=== PATIENT | male | born 1935 | race Caucasian/White ===

== ENCOUNTER 2016-03-08 09:10 | Outpatient (CLI) | payer MEDICARE, OTHER ==
[2016-03-08 09:44] LABS: BASOPHILS % (AUTO) 0.4 % (0.0-2.0); DIFF TOTAL % 100 %; EOSINOPHILS # (AUTO) 0.5 /CMM (0.0-0.7); HEMATOCRIT 40 % (39-51); HEMOGLOBIN 13.3 g/dL (13.5-17.5); LYMPHOCYTES # (AUTO) 1.5 /CMM (0.8-4.8); LYMPHOCYTES % (AUTO) 23.8 % (20.0-44.0); MEAN CORPUSCULAR HEMOGLOBIN 31 PG (26.0-33.0); MEAN CORPUSCULAR HGB CONC 34 g/dl (31.0-36.0); MEAN CORPUSCULAR VOLUME 91 fL (80-96); MONOCYTES # (AUTO) 0.5 /CMM (0.1-1.30); MONOCYTES % (AUTO) 7.7 % (2.0-12.0); NEUTROPHILS # (AUTO) 3.8 /CMM (1.8-8.9); NEUTROPHILS % (AUTO) 60.1 % (43.0-81.0); PLATELET COUNT (AUTO) 212 /CMM (150-450); RED BLOOD CELL COUNT(AUTO) 4.38 MIL/uL (4.5-6.0); WHITE BLOOD COUNT (AUTO) 6.4 K/uL (4.3-11.0)
[2016-03-08 10:12] LABS: ALBUMIN 3.6 g/dL (3.4-5.0); BILIRUBIN,TOTAL 0.4 mg/dL (0.2-1.0); CALCIUM, SERUM 9.1 mg/dL (8.5-10.1); CREATININE 1.9 mg/dL (0.6-1.3); POTASSIUM 4.2 mmol/L (3.5-5.1); TOTAL PROTEIN, SERUM 7.4 g/dL (6.4-8.2)
[2016-03-08 10:19] LABS: THYROID STIMULATING HORMONE 6.014 uIU/mL (0.358-3.74)
== END 2016-03-08 23:59 | disposition home or self-care (01) ==
LOC: LAB 09:10
PROVIDERS: ATTEND Internal Medicine
DX: F03.90 Unspecified dementia, unspecified severity, without behavioral disturbance, psychotic disturbance, mood disturbance, and anxiety (principal)
CPT/HCPCS: 36415; 80053-TC; 84436-TC; 84443-TC; 85025-TC

== ENCOUNTER 2016-04-03 14:39 | Outpatient (CLI) | payer MEDICARE, OTHER ==
[~2016-04-03] VITALS: Ht 157.5 cm; Wt 63.0 kg
[2016-04-03 14:51] VITALS: BP_SYST 142; BP_SYST 149; BP_DIAS 67; BP_DIAS 80
[2016-04-03 15:16] LABS: BASOPHILS % (AUTO) 0.4 % (0.0-2.0); DIFF TOTAL % 100 %; EOSINOPHILS # (AUTO) 0.4 /CMM (0.0-0.7); EOSINOPHILS % (AUTO) 4.9 % (0.0-6.0); HEMATOCRIT 41 % (39-51); HEMOGLOBIN 13.6 g/dL (13.5-17.5); LYMPHOCYTES # (AUTO) 1.7 /CMM (0.8-4.8); MEAN CORPUSCULAR HEMOGLOBIN 31 PG (26.0-33.0); MEAN CORPUSCULAR HGB CONC 34 g/dl (31.0-36.0); MEAN CORPUSCULAR VOLUME 91 fL (80-96); MONOCYTES # (AUTO) 0.7 /CMM (0.1-1.30); MONOCYTES % (AUTO) 9.2 % (2.0-12.0); NEUTROPHILS # (AUTO) 5.1 /CMM (1.8-8.9); NEUTROPHILS % (AUTO) 64.5 % (43.0-81.0); PLATELET COUNT (AUTO) 253 /CMM (150-450); RED BLOOD CELL COUNT(AUTO) 4.47 MIL/uL (4.5-6.0); WHITE BLOOD COUNT (AUTO) 7.9 K/uL (4.3-11.0)
[2016-04-03 15:25] LABS: CALCIUM, SERUM 9.6 mg/dL (8.5-10.1); CREATININE 2.1 mg/dL (0.6-1.3); POTASSIUM 4.4 mmol/L (3.5-5.1)
[2016-04-03 15:40] LABS: KETONES,URINE NEGATIVE (NEGATIVE); LEUKOCYTE ESTERASE ,URINE NEGATIVE (NEGATIVE)
[2016-04-03 15:47] LABS: ADD UA MICROSCOPIC YES
[2016-04-03 15:53] LABS: ADD URINE CULTURE NO; RBC,URINE 0-2 /HPF (0-2); WBC,URINE 0-2 /HPF (0-3)
[2016-04-03 17:05] LABS: CREATININE, URINE 129.7 MG/DL (30.0-125.0); URINE TOTAL PROTEIN 44.9 mg/dL (0-11.9)
[2016-04-03 17:22] LABS: THYROID STIMULATING HORMONE 5.605 uIU/mL (0.358-3.74)
== END 2016-04-03 23:59 | disposition home or self-care (01) ==
LOC: CSC 14:39
PROVIDERS: ATTEND Internal Medicine
DX: G30.9 Alzheimer's disease, unspecified (principal); F02.80 Dementia in other diseases classified elsewhere, unspecified severity, without behavioral disturbance, psychotic disturbance, mood disturbance, and anxiety; F32.5 Major depressive disorder, single episode, in full remission; E11.22 Type 2 diabetes mellitus with diabetic chronic kidney disease; I13.0 Hypertensive heart and chronic kidney disease with heart failure and stage 1 through stage 4 chronic kidney disease, or unspecified chronic kidney disease; N18.4 Chronic kidney disease, stage 4 (severe); I50.30 Unspecified diastolic (congestive) heart failure; Z79.84 Long term (current) use of oral hypoglycemic drugs; E03.9 Hypothyroidism, unspecified; G47.00 Insomnia, unspecified; K40.90 Unilateral inguinal hernia, without obstruction or gangrene, not specified as recurrent; E55.9 Vitamin D deficiency, unspecified; E78.5 Hyperlipidemia, unspecified; M85.80 Other specified disorders of bone density and structure, unspecified site; Z86.73 Personal history of transient ischemic attack (TIA), and cerebral infarction without residual deficits; R33.9 Retention of urine, unspecified; Z79.82 Long term (current) use of aspirin
CPT/HCPCS: 36415; 80048 ×2; 80061 ×2; 81001 ×2; 82565; 82570 ×2; 82728; 83036 ×2; 83540 ×2; 83970 ×2; 84155 ×2; 84443 ×2; 85025; G0463; 81000-TC

== ENCOUNTER 2016-04-05 15:14 | Inpatient (IN) | payer MEDICARE, OTHER ==
[~2016-04-05] VITALS: Ht 162.6 cm; Wt 67.6 kg
[2016-04-05 16:21] LABS: BASOPHILS # (AUTO) 0.2 /CMM (0.0-0.2); BASOPHILS % (AUTO) 2.6 % (0.0-2.0); DIFF TOTAL % 100 %; EOSINOPHILS # (AUTO) 0.3 /CMM (0.0-0.7); EOSINOPHILS % (AUTO) 4.5 % (0.0-6.0); HEMATOCRIT 40 % (39-51); LYMPHOCYTES # (AUTO) 1.2 /CMM (0.8-4.8); LYMPHOCYTES % (AUTO) 17.4 % (20.0-44.0); MEAN CORPUSCULAR HEMOGLOBIN 30 PG (26.0-33.0); MEAN CORPUSCULAR HGB CONC 33 g/dl (31.0-36.0); MEAN CORPUSCULAR VOLUME 91 fL (80-96); MONOCYTES # (AUTO) 0.6 /CMM (0.1-1.30); MONOCYTES % (AUTO) 9.2 % (2.0-12.0); NEUTROPHILS # (AUTO) 4.4 /CMM (1.8-8.9); NEUTROPHILS % (AUTO) 66.3 % (43.0-81.0); PLATELET COUNT (AUTO) 216 /CMM (150-450); RED BLOOD CELL COUNT(AUTO) 4.37 MIL/uL (4.5-6.0); WHITE BLOOD COUNT (AUTO) 6.7 K/uL (4.3-11.0)
[2016-04-05 16:34] LABS: INR 1.06 (0.87-1.13); PROTHROMBIN TIME 11.1 SECS (9.5-12.7)
[2016-04-05 16:36] LABS: CALCIUM, SERUM 8.9 mg/dL (8.5-10.1); CREATININE 2.1 mg/dL (0.6-1.3); POTASSIUM 4.4 mmol/L (3.5-5.1)
[2016-04-05] MEDS ORDERED: GLIP5TAB13 PO (17:21)
[2016-04-05] MEDS ORDERED: ALBU18HF2 INH (17:21)
[2016-04-05] MEDS ORDERED: MEMA28CA PO (17:21)
[2016-04-05] MEDS ORDERED: LEVO125T8 PO (17:21)
[2016-04-05] MEDS ORDERED: TAMS-12 PO (17:21)
[2016-04-05] MEDS ORDERED: DONE10TA44 PO (17:21)
[2016-04-05] MEDS ORDERED: METO25TA20 PO (17:21)
[2016-04-05] MEDS ORDERED: ASPI-991 PO (17:21)
[2016-04-05] MEDS ORDERED: MIRT15TA7 PO (17:21)
[2016-04-05 18:40] VITALS: BP 148/78
[2016-04-05] MEDS ORDERED: ALBUTEROL SULFATE 8 GM HFA.AER.AD IH PRN ×2 (19:00→19:13)
[2016-04-05] MEDS ORDERED: Z GUARD REMEDY 2 OZ OINT TP PRN (19:00)
[2016-04-05] MEDS ORDERED: MAGNESIUM HYDROXIDE 30 ML UDC PO PRN (19:00)
[2016-04-05] MEDS ORDERED: ONDANSETRON HCL/PF 4 MG/2 ML VIAL IVP PRN (19:00)
[2016-04-05] MEDS ORDERED: ENOXAPARIN SODIUM 40 MG/0.4 ML DISP.SYRIN SQ SCH (19:00)
[2016-04-05] MEDS ORDERED: MORPHINE SULFATE INJ 2 MG/ML DISP.SYRIN IV PRN (19:00)
[2016-04-05] MEDS ORDERED: HYDROCODONE/APAP 5/325MG 1 EACH TABLET PO PRN (19:00)
[2016-04-05] MEDS ORDERED: ZOLPIDEM TARTRATE 5 MG TABLET PO PRN (19:00)
[2016-04-05] MEDS ORDERED: MAG HYDROX/AL HYDROX/SIMETH 30 ML UDC PO PRN (19:00)
[2016-04-05] MEDS ORDERED: ENOXAPARIN SODIUM 30 MG/0.3 ML DISP.SYRIN SQ SCH (19:30)
[2016-04-05 20:00] VITALS: BP 135/73
[2016-04-05] MEDS: DONEPEZIL 5 MG TABLET PO SCH (22:03)
[2016-04-05] MEDS: MIRTAZAPINE 15 MG TABLET PO SCH (22:03)
[2016-04-06] VITALS (16 sets, daily range): BP systolic 96–139; BP diastolic 59–82
[2016-04-06] MEDS ORDERED: IV SET PRIMARY PUMP SET 1 EA INFUS.SET MC ONE ×2 (02:15→12:13)
[2016-04-06] MEDS: IV NS 0.9% 1,000 ML IV PRN ×2 (04:23→12:18)
[2016-04-06] MEDS ORDERED: LIDOCAINE 1% INJ 50 ML MDV IJ ONE (05:08)
[2016-04-06] MEDS ORDERED: BUPIVACAINE MPF 0.5% W/EPI INJ 30 ML VIAL ONE (05:09)
[2016-04-06] MEDS ORDERED: FENTANYL PF 100MCG/2ML AMPUL ONE (05:11)
[2016-04-06] MEDS ORDERED: ROCURONIUM BROMIDE 50 MG/5 ML ONE (05:11)
[2016-04-06] MEDS ORDERED: HYDROMORPHONE INJ 2 MG/ML DISP.SYRIN ONE (05:11)
[2016-04-06] MEDS ORDERED: SUCCINYLCHOLINE CHLORIDE 20 MG/ML VIAL ONE (05:11)
[2016-04-06] MEDS ORDERED: ALBUTEROL 17GM INHALER ONE (05:29)
[2016-04-06] MEDS ORDERED: ANESTHESIA TRAY IN PYXIS 1 EA TRAY MC ONE ×2 (06:37→08:18)
[2016-04-06] MEDS ORDERED: ALBUTEROL FS 2.5 MG/3 ML VIAL.NEB ONE ×3 (07:27→08:17)
[2016-04-06] MEDS ORDERED: HYDROMORPHONE 1 MG/1 ML DISP.SYRIN IV PRN (08:30)
[2016-04-06] MEDS ORDERED: ONDANSETRON HCL/PF 4 MG/2 ML VIAL IVP PRN (08:30)
[2016-04-06] MEDS ORDERED: HYDROCORTISONE SOD SUCCINATE 100 MG/2 ML VIAL IV ONE (08:30)
[2016-04-06] MEDS ORDERED: ASPIRIN EC 81 MG TABLET.DR PO SCH (09:00)
[2016-04-06 09:24] LABS: ABG BASE EXCESS -6.4 mmol/L; ABG HCO3 24.7 mmol/L; ABG PCO2 77.4 mmHg (35.0-45.0); ABG PH 7.121 (7.350-7.450); ABG PO2 115.6 mmHg (75.0-100.0); ABG TOTAL HEMOGLOBIN 14.2 G/dL (13.5-18.0); AaDO2 139.2 mmHg
[2016-04-06] MEDS: LEVOTHYROXINE SODIUM 125 MCG TABLET PO SCH (10:42)
[2016-04-06] MEDS: TAMSULOSIN 0.4 MG CAP.SR.24H PO SCH (10:43)
[2016-04-06] MEDS: PANTOPRAZOLE 40 MG TABLET.DR PO SCH (10:43)
[2016-04-06] MEDS: MEMANTINE HCL 5 MG TABLET PO SCH ×2 (10:43→16:42)
[2016-04-06] MEDS: METOPROLOL TARTRATE 25 MG TABLET PO SCH ×2 (10:43→16:42)
[2016-04-06 11:15] LABS: DIFF TOTAL % 100 %; EOSINOPHILS % (AUTO) 0.1 % (0.0-6.0); HEMATOCRIT 38 % (39-51); HEMOGLOBIN 12.7 g/dL (13.5-17.5); LYMPHOCYTES # (AUTO) 0.4 /CMM (0.8-4.8); LYMPHOCYTES % (AUTO) 5.1 % (20.0-44.0); MEAN CORPUSCULAR HEMOGLOBIN 31 PG (26.0-33.0); MEAN CORPUSCULAR HGB CONC 34 g/dl (31.0-36.0); MEAN CORPUSCULAR VOLUME 91 fL (80-96); MONOCYTES # (AUTO) 0.4 /CMM (0.1-1.30); MONOCYTES % (AUTO) 4.8 % (2.0-12.0); PLATELET COUNT (AUTO) 193 /CMM (150-450); RED BLOOD CELL COUNT(AUTO) 4.15 MIL/uL (4.5-6.0); WHITE BLOOD COUNT (AUTO) 8.9 K/uL (4.3-11.0)
[2016-04-06 11:21] LABS: ABG BASE EXCESS -2.9 mmol/L; ABG HCO3 22.9 mmol/L; ABG PCO2 43.8 mmHg (35.0-45.0); ABG PH 7.337 (7.350-7.450); ABG PO2 91.4 mmHg (75.0-100.0); ABG TOTAL HEMOGLOBIN 13.3 G/dL (13.5-18.0); ALLEN TEST Pass; AaDO2 85.5 mmHg
[2016-04-06] MEDS: ALBUTEROL FS 2.5 MG/0.5 ML VIAL.NEB NEB SCH ×3 (11:30→19:49)
[2016-04-06 11:31] LABS: CALCIUM, SERUM 8.5 mg/dL (8.5-10.1); PHOSPHORUS 2.9 mg/dL (2.5-4.9); POTASSIUM 4.3 mmol/L (3.5-5.1)
[2016-04-06 13:07] LABS: KETONES,URINE 1+ (NEGATIVE); LEUKOCYTE ESTERASE ,URINE NEGATIVE (NEGATIVE)
[2016-04-06 13:09] LABS: ADD UA MICROSCOPIC YES
[2016-04-06 13:26] LABS: ADD URINE CULTURE NO; WBC,URINE NONE SEEN /HPF (0-3)
[2016-04-06] MEDS: IPRATROPIUM NEB FS 0.5 MG/2.5 ML AMPUL.NEB NEB SCH ×3 (14:52→23:13)
[2016-04-06] MEDS ORDERED: DEXTROSE 50%-WATER 50 ML DISP.SYRIN IV PRN (15:30)
[2016-04-06] MEDS: BLOOD SUGAR DIAGNOSTIC 1 EACH STRIP IN SCH ×2 (16:41→23:11)
[2016-04-06] MEDS: glipiZIDE 5 MG TABLET PO SCH (16:41)
[2016-04-06] MEDS: INSULIN REGULAR, HUMAN 100 UNIT/ML 3 ML VIAL SQ PRN ×2 (16:50→23:11)
[2016-04-06] MEDS: DONEPEZIL 5 MG TABLET PO SCH (23:07)
[2016-04-06] MEDS: MIRTAZAPINE 15 MG TABLET PO SCH (23:13)
[2016-04-07] VITALS (20 sets, daily range): BP systolic 106–135; BP diastolic 39–101
[2016-04-07] MEDS: IV NS 0.9% 1,000 ML IV PRN ×2 (00:29→12:53)
[2016-04-07] MEDS: IPRATROPIUM NEB FS 0.5 MG/2.5 ML AMPUL.NEB NEB SCH ×5 (03:16→19:43)
[2016-04-07 05:25] LABS: BASOPHILS % (AUTO) 0.3 % (0.0-2.0); DIFF TOTAL % 100 %; HEMATOCRIT 35 % (39-51); HEMOGLOBIN 11.8 g/dL (13.5-17.5); LYMPHOCYTES # (AUTO) 0.8 /CMM (0.8-4.8); LYMPHOCYTES % (AUTO) 9.2 % (20.0-44.0); MEAN CORPUSCULAR HEMOGLOBIN 31 PG (26.0-33.0); MEAN CORPUSCULAR HGB CONC 34 g/dl (31.0-36.0); MEAN CORPUSCULAR VOLUME 92 fL (80-96); MONOCYTES % (AUTO) 11.4 % (2.0-12.0); NEUTROPHILS # (AUTO) 6.9 /CMM (1.8-8.9); NEUTROPHILS % (AUTO) 79.1 % (43.0-81.0); PLATELET COUNT (AUTO) 191 /CMM (150-450); RED BLOOD CELL COUNT(AUTO) 3.78 MIL/uL (4.5-6.0); WHITE BLOOD COUNT (AUTO) 8.8 K/uL (4.3-11.0)
[2016-04-07 05:31] LABS: CALCIUM, SERUM 8.7 mg/dL (8.5-10.1); CREATININE 1.9 mg/dL (0.6-1.3); PHOSPHORUS 2.4 mg/dL (2.5-4.9); POTASSIUM 3.9 mmol/L (3.5-5.1)
[2016-04-07] MEDS: glipiZIDE 5 MG TABLET PO SCH ×2 (07:52→16:33)
[2016-04-07] MEDS: PANTOPRAZOLE 40 MG TABLET.DR PO SCH (07:52)
[2016-04-07] MEDS: BLOOD SUGAR DIAGNOSTIC 1 EACH STRIP IN SCH ×4 (07:52→21:30)
[2016-04-07] MEDS: LEVOTHYROXINE SODIUM 125 MCG TABLET PO SCH (07:52)
[2016-04-07] MEDS: ALBUTEROL FS 2.5 MG/0.5 ML VIAL.NEB NEB SCH ×4 (07:55→19:43)
[2016-04-07] MEDS: TAMSULOSIN 0.4 MG CAP.SR.24H PO SCH (08:00)
[2016-04-07] MEDS: MEMANTINE HCL 5 MG TABLET PO SCH ×2 (08:01→16:33)
[2016-04-07] MEDS: METOPROLOL TARTRATE 25 MG TABLET PO SCH ×2 (08:01→16:35)
[2016-04-07 08:55] LABS: ABG HCO3 22.7 mmol/L; ABG PCO2 38.6 mmHg (35.0-45.0); ABG PH 7.387 (7.350-7.450); ABG PO2 72.3 mmHg (75.0-100.0); ABG TOTAL HEMOGLOBIN 11.8 G/dL (13.5-18.0); ALLEN TEST Pass; AaDO2 81.8 mmHg; O2Hb 92.1 % (94.0-97.0)
[2016-04-07] MEDS ORDERED: K PHOS NEUTRAL 250 MG TABLET PO ONE (13:30)
[2016-04-07] MEDS: INSULIN REGULAR, HUMAN 100 UNIT/ML 3 ML VIAL SQ PRN ×2 (16:42→21:40)
[2016-04-07] MEDS: ACETAMINOPHEN 325 MG TABLET PO PRN (20:27)
[2016-04-07] MEDS: DONEPEZIL 5 MG TABLET PO SCH (21:30)
[2016-04-07] MEDS: MIRTAZAPINE 15 MG TABLET PO SCH (21:30)
[2016-04-08] VITALS (7 sets, daily range): BP systolic 115–158; BP diastolic 40–91
[2016-04-08] MEDS: IV NS 0.9% 1,000 ML IV PRN ×2 (01:35→21:21)
[2016-04-08] MEDS: BLOOD SUGAR DIAGNOSTIC 1 EACH STRIP IN SCH ×4 (07:30→21:21)
[2016-04-08] MEDS: ALBUTEROL FS 2.5 MG/0.5 ML VIAL.NEB NEB SCH ×4 (07:32→19:10)
[2016-04-08] MEDS: IPRATROPIUM NEB FS 0.5 MG/2.5 ML AMPUL.NEB NEB SCH ×4 (07:32→19:10)
[2016-04-08 08:12] LABS: CALCIUM, SERUM 7.8 mg/dL (8.5-10.1); CREATININE 1.7 mg/dL (0.6-1.3); PHOSPHORUS 2.3 mg/dL (2.5-4.9); POTASSIUM 4.2 mmol/L (3.5-5.1)
[2016-04-08] MEDS: LEVOTHYROXINE SODIUM 125 MCG TABLET PO SCH (09:04)
[2016-04-08] MEDS: MEMANTINE HCL 5 MG TABLET PO SCH ×2 (09:04→17:27)
[2016-04-08] MEDS: TAMSULOSIN 0.4 MG CAP.SR.24H PO SCH (09:06)
[2016-04-08] MEDS: glipiZIDE 5 MG TABLET PO SCH ×2 (09:06→17:26)
[2016-04-08] MEDS: PANTOPRAZOLE 40 MG TABLET.DR PO SCH (09:06)
[2016-04-08] MEDS: METOPROLOL TARTRATE 25 MG TABLET PO SCH ×2 (09:06→17:28)
[2016-04-08] MEDS: ENOXAPARIN SODIUM 30 MG/0.3 ML DISP.SYRIN SQ SCH (11:25)
[2016-04-08] MEDS: INSULIN REGULAR, HUMAN 100 UNIT/ML 3 ML VIAL SQ PRN ×2 (11:31→21:24)
[2016-04-08] MEDS ORDERED: K PHOS NEUTRAL 250 MG TABLET PO ONE ×2 (13:00→14:30)
[2016-04-08] MEDS ORDERED: BLOOD IV SET 1 EA INFUS.SET MC ONE (16:28)
[2016-04-08] MEDS: DONEPEZIL 5 MG TABLET PO SCH (21:21)
[2016-04-08] MEDS: MIRTAZAPINE 15 MG TABLET PO SCH (21:21)
[2016-04-09] VITALS (7 sets, daily range): BP systolic 88–127; BP diastolic 44–71
[2016-04-09] MEDS: ACETAMINOPHEN 325 MG TABLET PO PRN (04:57)
[2016-04-09] MEDS: glipiZIDE 5 MG TABLET PO SCH ×2 (07:30→17:14)
[2016-04-09] MEDS: IPRATROPIUM NEB FS 0.5 MG/2.5 ML AMPUL.NEB NEB SCH ×4 (07:45→19:58)
[2016-04-09] MEDS: ALBUTEROL FS 2.5 MG/0.5 ML VIAL.NEB NEB SCH ×4 (07:45→19:58)
[2016-04-09 08:03] LABS: BASOPHILS % (AUTO) 0.4 % (0.0-2.0); DIFF TOTAL % 100 %; EOSINOPHILS % (AUTO) 0.3 % (0.0-6.0); HEMATOCRIT 31 % (39-51); HEMOGLOBIN 10.3 g/dL (13.5-17.5); LYMPHOCYTES # (AUTO) 1.1 /CMM (0.8-4.8); LYMPHOCYTES % (AUTO) 11.5 % (20.0-44.0); MEAN CORPUSCULAR HEMOGLOBIN 31 PG (26.0-33.0); MEAN CORPUSCULAR HGB CONC 33 g/dl (31.0-36.0); MEAN CORPUSCULAR VOLUME 92 fL (80-96); MONOCYTES # (AUTO) 0.9 /CMM (0.1-1.30); MONOCYTES % (AUTO) 9.6 % (2.0-12.0); NEUTROPHILS # (AUTO) 7.5 /CMM (1.8-8.9); NEUTROPHILS % (AUTO) 78.2 % (43.0-81.0); PLATELET COUNT (AUTO) 168 /CMM (150-450); RED BLOOD CELL COUNT(AUTO) 3.34 MIL/uL (4.5-6.0); WHITE BLOOD COUNT (AUTO) 9.6 K/uL (4.3-11.0)
[2016-04-09 08:30] LABS: CALCIUM, SERUM 8.1 mg/dL (8.5-10.1); CREATININE 1.8 mg/dL (0.6-1.3); PHOSPHORUS 2.5 mg/dL (2.5-4.9); POTASSIUM 3.9 mmol/L (3.5-5.1)
[2016-04-09] MEDS: BLOOD SUGAR DIAGNOSTIC 1 EACH STRIP IN SCH ×4 (08:31→21:59)
[2016-04-09] MEDS: METOPROLOL TARTRATE 25 MG TABLET PO SCH ×2 (08:32→17:17)
[2016-04-09] MEDS: TAMSULOSIN 0.4 MG CAP.SR.24H PO SCH (08:32)
[2016-04-09] MEDS: MEMANTINE HCL 5 MG TABLET PO SCH ×2 (08:32→17:14)
[2016-04-09] MEDS: LEVOTHYROXINE SODIUM 125 MCG TABLET PO SCH (08:32)
[2016-04-09] MEDS: PANTOPRAZOLE 40 MG TABLET.DR PO SCH (08:32)
[2016-04-09] MEDS: ENOXAPARIN SODIUM 30 MG/0.3 ML DISP.SYRIN SQ SCH (08:47)
[2016-04-09] MEDS: IV NS 0.9% 1,000 ML IV PRN (10:29)
[2016-04-09] MEDS: INSULIN REGULAR, HUMAN 100 UNIT/ML 3 ML VIAL SQ PRN (17:17)
[2016-04-09] MEDS: MIRTAZAPINE 15 MG TABLET PO SCH (21:59)
[2016-04-09] MEDS: DONEPEZIL 5 MG TABLET PO SCH (21:59)
[2016-04-10] VITALS: BP 101/63
[2016-04-10 04:00] VITALS: BP 119/56
[2016-04-10] MEDS: BLOOD SUGAR DIAGNOSTIC 1 EACH STRIP IN SCH ×3 (07:06→17:06)
[2016-04-10] MEDS: ALBUTEROL FS 2.5 MG/0.5 ML VIAL.NEB NEB SCH ×4 (07:31→19:55)
[2016-04-10] MEDS: IPRATROPIUM NEB FS 0.5 MG/2.5 ML AMPUL.NEB NEB SCH ×4 (07:31→19:55)
[2016-04-10 08:00] VITALS: BP 136/65
[2016-04-10 08:00] LABS: CREATININE 1.7 mg/dL (0.6-1.3); POTASSIUM 3.9 mmol/L (3.5-5.1)
[2016-04-10] MEDS: ACETAMINOPHEN 325 MG TABLET PO PRN ×2 (09:43→20:28)
[2016-04-10] MEDS: METOPROLOL TARTRATE 25 MG TABLET PO SCH ×2 (09:43→17:06)
[2016-04-10] MEDS: glipiZIDE 5 MG TABLET PO SCH ×2 (09:44→17:05)
[2016-04-10] MEDS: TAMSULOSIN 0.4 MG CAP.SR.24H PO SCH (09:44)
[2016-04-10] MEDS: MEMANTINE HCL 5 MG TABLET PO SCH ×2 (09:44→17:06)
[2016-04-10] MEDS: PANTOPRAZOLE 40 MG TABLET.DR PO SCH (09:44)
[2016-04-10] MEDS: LEVOTHYROXINE SODIUM 125 MCG TABLET PO SCH (09:44)
[2016-04-10] MEDS: ENOXAPARIN SODIUM 30 MG/0.3 ML DISP.SYRIN SQ SCH (09:51)
[2016-04-10] MEDS: INSULIN REGULAR, HUMAN 100 UNIT/ML 3 ML VIAL SQ PRN ×2 (12:40→17:13)
[2016-04-10 16:00] VITALS: BP 112/48
[2016-04-10 17:06] VITALS: BP 112/48
[2016-04-10] MEDS ORDERED: HYDR-3326 PO (17:12)
== END 2016-04-10 21:03 | DRG 350 ==
LOC: ER 15:19 → MED 18:09 → ICU 04-06 09:56 → TELE-TD 04-07 16:06 → TELE1 04-07 16:56 → MEDSG1 04-10 07:40
PROVIDERS: ADMIT Internal Medicine; ATTEND Internal Medicine
PROC: 0YU50JZ Supplement Right Inguinal Region with Synthetic Substitute, Open Approach (ICD-10-PCS; principal; 2016-04-06 05:47)
PROC: 05H533Z Insertion of Infusion Device into Right Subclavian Vein, Percutaneous Approach (ICD-10-PCS; 2016-04-08)
PROC: B546ZZA Ultrasonography of Right Subclavian Vein, Guidance (ICD-10-PCS; 2016-04-08)
DX: K40.30 Unilateral inguinal hernia, with obstruction, without gangrene, not specified as recurrent (principal); N17.0 Acute kidney failure with tubular necrosis; J44.1 Chronic obstructive pulmonary disease with (acute) exacerbation; I50.32 Chronic diastolic (congestive) heart failure; I13.0 Hypertensive heart and chronic kidney disease with heart failure and stage 1 through stage 4 chronic kidney disease, or unspecified chronic kidney disease; E87.2 Acidosis; J98.11 Atelectasis; E11.9 Type 2 diabetes mellitus without complications; E03.9 Hypothyroidism, unspecified; F02.80 Dementia in other diseases classified elsewhere, unspecified severity, without behavioral disturbance, psychotic disturbance, mood disturbance, and anxiety; G30.9 Alzheimer's disease, unspecified; J44.9 Chronic obstructive pulmonary disease, unspecified; E78.5 Hyperlipidemia, unspecified; E11.22 Type 2 diabetes mellitus with diabetic chronic kidney disease; I25.10 Atherosclerotic heart disease of native coronary artery without angina pectoris; K21.9 Gastro-esophageal reflux disease without esophagitis; K59.00 Constipation, unspecified; Z87.891 Personal history of nicotine dependence; N18.3 Chronic kidney disease, stage 3 (moderate); N40.1 Benign prostatic hyperplasia with lower urinary tract symptoms; R33.8 Other retention of urine; D63.8 Anemia in other chronic diseases classified elsewhere; E61.1 Iron deficiency; Z91.19 Patient's noncompliance with other medical treatment and regimen; F32.9 Major depressive disorder, single episode, unspecified; M85.80 Other specified disorders of bone density and structure, unspecified site; Z99.81 Dependence on supplemental oxygen
CPT/HCPCS: 36415; 36600; 71010-TC; 80048-TC; 80061-TC; 81000-TC; 82746; 82962-TC; 83540-TC; 83735-TC; 84100-TC; 85025-TC; 85730-TC; 87081-TC; 94799-TC; 97001-TC; 97003-TC; 97116-TC; 97530-TC; 99082-TC; A4606; A6253; A6402; C1781; J0330; J1170; J1650; J1720; J1815; J3010; J3490; J7030; Z7610

== ENCOUNTER 2016-05-17 23:28 | Inpatient (IN) | payer MEDICARE, OTHER ==
[~2016-05-17] VITALS: Ht 172.7 cm; Wt 68.0 kg
[~2016-05-17 23:28] MED LIST: ALBU18HF2 INH; ASPI-991 PO; DONE10TA44 PO; GLIP5TAB13 PO; HYDR-3326 PO; LEVO125T8 PO; MEMA28CA PO; METO25TA20 PO; MIRT15TA7 PO; TAMS-12 PO
--- NOTE | 2016-05-17 23:31 | NUR ---
CALLED, NO ANSWER.
[2016-05-17] MEDS ORDERED: LIDOCAINE 2% JEL UROJET 10 ML MM ONE (23:39)
--- NOTE | 2016-05-17 23:53 | NUR ---
PT BIBA, PT PER EMS BROUGHT HERE FOR URINARY RETENTION, CATHETER NOT WORKING PER EMS, PT ON MONITOR, PT BREATHING EFFORTLESSLY ON ROOM AIR, PT ALTERED BUT NORMAL BASELINE PER EMS, MD MADE AWARE WILL CONTINUE TO MONITOR.
--- NOTE | 2016-05-18 | NUR ---
BLADDER SCAN DONE AT BEDSIDE. RESULTS >[address] MCFARLAND NOTIFIED.
--- NOTE | 2016-05-18 00:05 | NUR ---
UNABLE TO INSERT DE LA CRUZ CATHETER, DR MCFARLAND NOTIFIED.
--- NOTE | 2016-05-18 00:22 | NUR ---
CALL PLACED TO DR BENSON; MESSAGE LEFT
[2016-05-18 00:38] LABS: BASOPHILS % (AUTO) 0.1 % (0.0-2.0); EOSINOPHILS # (AUTO) 0.1 /CMM (0.0-0.7); EOSINOPHILS % (AUTO) 0.4 % (0.0-6.0); HEMATOCRIT 32 % (39-51); HEMOGLOBIN 10.6 g/dL (13.5-17.5); LYMPHOCYTES # (AUTO) 1.1 /CMM (0.8-4.8); LYMPHOCYTES % (AUTO) 8.5 % (20.0-44.0); MEAN CORPUSCULAR HEMOGLOBIN 29 PG (26.0-33.0); MEAN CORPUSCULAR HGB CONC 33 g/dl (31.0-36.0); MEAN CORPUSCULAR VOLUME 88 fL (80-96); MONOCYTES # (AUTO) 0.4 /CMM (0.1-1.30); MONOCYTES % (AUTO) 2.9 % (2.0-12.0); NEUTROPHILS # (AUTO) 11.4 /CMM (1.8-8.9); NEUTROPHILS % (AUTO) 88.1 % (43.0-81.0); PLATELET COUNT (AUTO) 232 /CMM (150-450); RDW COEFFICIENT OF VARIATION 14.5 (11.5-15.0); RED BLOOD CELL COUNT(AUTO) 3.63 MIL/uL (4.5-6.0)
[2016-05-18 00:52] LABS: CALCIUM, SERUM 10.2 mg/dL (8.5-10.1); CREATININE 2.4 mg/dL (0.6-1.3); POTASSIUM 4.8 mmol/L (3.5-5.1)
[2016-05-18] MEDS ORDERED: ONDANSETRON HCL/PF 4 MG/2 ML VIAL ONE (00:56)
[2016-05-18] MEDS ORDERED: MORPHINE SULFATE INJ 2 MG/ML DISP.SYRIN ONE (00:56)
[2016-05-18] MEDS ORDERED: ONDANSETRON HCL/PF 4 MG/2 ML VIAL IV ONE (01:00)
[2016-05-18] MEDS ORDERED: MORPHINE SULFATE INJ 2 MG/ML DISP.SYRIN IV ONE (01:00)
[2016-05-18 01:07] LABS: ALBUMIN 2.6 g/dL (3.4-5.0); BILIRUBIN,DIRECT 0.1 mg/dL (0.0-0.2); BILIRUBIN,TOTAL 0.4 mg/dL (0.2-1.0)
[2016-05-18] MEDS ORDERED: IV NS 0.9% 1,000 ML IV PRN (01:51)
[2016-05-18] MEDS ORDERED: Z GUARD REMEDY 2 OZ OINT TP PRN (02:00)
[2016-05-18] MEDS ORDERED: ZOLPIDEM TARTRATE 5 MG TABLET PO PRN (02:00)
[2016-05-18] MEDS ORDERED: MAGNESIUM HYDROXIDE 30 ML UDC PO PRN (02:00)
[2016-05-18] MEDS ORDERED: DEXTROSE 50%-WATER 50 ML DISP.SYRIN IV PRN (02:00)
[2016-05-18] MEDS ORDERED: CEFTRIAXONE 1 G in IV D5W 50 ML IV SCH (02:00)
[2016-05-18] MEDS ORDERED: ONDANSETRON HCL/PF 4 MG/2 ML VIAL IVP PRN (02:00)
[2016-05-18] MEDS ORDERED: MAG HYDROX/AL HYDROX/SIMETH 30 ML UDC PO PRN (02:00)
[2016-05-18] MEDS ORDERED: ACETAMINOPHEN 325 MG TABLET PO PRN (02:00)
[2016-05-18 02:17] LABS: APPEARANCE,URINE CLOUDY (CLEAR); BILIRUBIN,URINE NEGATIVE (NEGATIVE); BLOOD, URINE 3+ Ery/uL (NEGATIVE); COLOR,URINE ORANGE (YELLOW); KETONES,URINE NEGATIVE (NEGATIVE); LEUKOCYTE ESTERASE ,URINE 3+ (NEGATIVE); NITRITE, URINE NEGATIVE (NEGATIVE); PH,URINE 7.5 (5.0-8.0); PROTEIN,URINE 2+ mg/dl (NEGATIVE); UGLUCOSE NEGATIVE (NEGATIVE); UROBILINOGEN,URINE 0.2 EU/dL (0.2)
[2016-05-18 02:31] LABS: ADD URINE CULTURE YES; BACTERIA,URINE Many /HPF (None Seen); RBC,URINE TOO NUMEROUS TO COUN /HPF (0-2); SQUAMOUS EPITHELIAL CELL,UR Few /HPF (None Seen); WBC,URINE TNTNC /HPF (0-3)
[2016-05-18] MEDS ORDERED: IV SET PRIMARY 1 EA INFUS.SET MC ONE (02:36)
[2016-05-18] MEDS ORDERED: CEFTRIAXONE 1GM BAG (ER ONLY) 50 ML IV ONE (02:36)
[2016-05-18] MEDS ORDERED: CEFTRIAXONE 1GM BAG (ER ONLY) 1 GM/50 ML PIGGYBACK IV ONE (03:00)
[2016-05-18 03:10] VITALS: BP 120/66
[2016-05-18 04:30] VITALS: BP 120/66
--- NOTE | 2016-05-18 04:42 | NUR ---
ms/rn notes Received patient from [facility]. With dx. obstructive uropathy. Patient is alert and confused. Respiration even et unlabored. With o2 @2lpm via nc. No acute respiratory distress noted. Vital signs wnl, afebrile. Skin assessment done, Skin is intact. no skin breakdown noted. With saline lock on right hand. With navarrete catheter in place, noted with josr in color and sediments noted. No apparent distress noted. kept comfortable in bed, call light within reach.
[2016-05-18] MEDS ORDERED: IV NS 0.9% 1,000 ML ONE (05:55)
[2016-05-18] MEDS ORDERED: IV SET PRIMARY PUMP SET 1 EA INFUS.SET MC ONE (05:56)
[2016-05-18] MEDS: BLOOD SUGAR DIAGNOSTIC 1 EACH STRIP VI SCH ×4 (06:42→21:28)
[2016-05-18] MEDS: INSULIN REGULAR, HUMAN 100 UNIT/ML 3 ML VIAL SQ PRN ×3 (06:43→16:50)
--- NOTE | 2016-05-18 07:45 | NUR ---
MS RN OPENING NOTE PATIENT IS ASLEEP IN BED LOCKED IN LOWEST POSITION WITH SIDERAILS UP x2. ALERT BUT VERY CONFUSED. WOLOF SPEAKING. SAFETY MEASURES IMPLEMENTED. CALL LIGHT WITHIN REACH. IV INTACT AND PATENT. ON OXYGEN 2L/MIN. NO PAIN AT THIS TIME, NO FACIAL GRIMACING. NO SOB OR DISTRESS NOTED. WILL CONTINUE TO MONITOR
[2016-05-18 08:10] VITALS: BP 114/64
[2016-05-18] MEDS ORDERED: ASPIRIN EC 81 MG TABLET.DR PO SCH (09:00)
[2016-05-18] MEDS: METOPROLOL TARTRATE 25 MG TABLET PO SCH ×2 (09:04→21:29)
[2016-05-18] MEDS: TAMSULOSIN 0.4 MG CAP.SR.24H PO SCH (09:04)
[2016-05-18] MEDS: DONEPEZIL 5 MG TABLET PO SCH (09:05)
[2016-05-18] MEDS: LEVOTHYROXINE SODIUM 125 MCG TABLET PO SCH (09:05)
[2016-05-18] MEDS: PANTOPRAZOLE 40 MG TABLET.DR PO SCH (09:09)
[2016-05-18] MEDS: MEMANTINE HCL 5 MG TABLET PO SCH ×2 (09:25→16:53)
[2016-05-18] MEDS ORDERED: SALM50DI IH (11:53)
--- NOTE | 2016-05-18 12:59 | NUR ---
WOUND CARE CONSULT: PATIENT SEEN AND SKIN ASSESSMENT DONE. PATIENT WEAK, HAS F/C, IMMOBILE, INCONTINENT, MARY 14, ON WALTER ISOFLEX MAN BED. THERE'S BLEEDING NOTED FROM THE PENIS, DEFERRED TO MD. RECOMMEND UROLOGY CONSULT. SEE TODAY'S SKIN ASSESSMENT IN PCS ALONG WITH RECOMMENDATIONS. RECOMMEND MOISTURE PROTECTION WITH Z GUARD ORDERED. TURN AND REPOSITION EVERY 2 HRS PATIENT CONDITION PERMITS, OFFLOAD BOTH HEELS. ALL DISCUSSED WITH NURSING STAFF. MD IN AGREEMENT WITH PLAN OF CARE. Addendum: 05/18/16 at 1304 by JOANNE DAWN WNDNU Amended: Links added.
[2016-05-18] MEDS: FLUTICASONE/SALMETEROL DISKUS IH SCH ×2 (13:58→16:52)
[2016-05-18] MEDS: BOOST GLUCOSE CONTROL VANILLA 237 ML BOX PO SCH (14:04)
[2016-05-18 16:11] VITALS: BP 107/58
--- NOTE | 2016-05-18 18:40 | NUR ---
MS RN CLOSING NOTE PATIENT IS ALERT BUT CONFUSED. ASLEEP IN BED LOCKED IN LOWEST POSITION WITH SIDERAILS UP. NO PAIN AT THIS TIME. NO SOB OR DISTRESS NOTED. ALL DUE MEDICATIONS GIVEN ORDERED. SAFETY MEASURES IMPLEMENTED. CALL LIGHT WITHIN REACH. PATIENT WAS SEEN BY PHYSICAL THERAPY. IV INTACT AND PATENT NO REDNESS OR SWELLING NOTED. DE LA CRUZ CATHETER PRESENT WITH NOTICEABLE SEDIMENT. HAS BLEEDING AROUND PENIS, AWARE. MAURITANIAN SPEAKING. WILL ENDORSE TO PATIENT ACCESS DIRECTOR NURSE FOR JOANIE
--- NOTE | 2016-05-18 19:20 | NUR ---
RN OPEN NOTES RECEIVED PATIENT RESTING IN BED WITH FAMILY AT BEDSIDE. A/O X1. NO SIGNS OF DISTRESS OR DISCOMFORT. BREATHING EVEN AND UNLABORED. HAS F/C INTACT WITH CLOUDY YELLOW FLUID NOTED. IV ACCESS IN R HAND PATENT AND INTACT, NO SIGNS OF REDNESS OR INFILTRATION. BED IN LOW LOCKED POSITION WITH SIDE RAILS X2. CALL LIGHT WITHIN REACH. WILL CONTINUE TO MONITOR.
[2016-05-18] MEDS ORDERED: SALMETEROL XINAFOATE 1 DISK DISK IH SCH (19:30)
[2016-05-18 20:00] VITALS: BP 133/57
[2016-05-18 20:56] VITALS: BP 133/57
[2016-05-18] MEDS: MIRTAZAPINE 15 MG TABLET PO SCH (21:28)
[2016-05-18] MEDS: IV NS 0.9% 1,000 ML IV PRN (21:30)
[2016-05-18] MEDS: *INSULIN REGULAR(HUMULIN R)HUM 100 UNIT/ML VIAL SQ PRN (21:34)
[2016-05-19] MEDS ORDERED: SECONDARY IV SET 1 EA INFUS.SET MC ONE (01:50)
[2016-05-19] MEDS: CEFTRIAXONE 1 G in IV D5W 50 ML IV SCH (01:50)
[2016-05-19] MEDS: BLOOD SUGAR DIAGNOSTIC 1 EACH STRIP VI SCH ×4 (06:12→21:53)
--- NOTE | 2016-05-19 06:48 | NUR ---
RN CLOSING NOTES PATIENT RESTING IN BED. A/O X1. NO SIGNS OF DISTRESS OR DISCOMFORT. BREATHING EVEN AND UNLABORED. ON 2LPM O2 VIA NC. HAS F/C INTACT WITH CLOUDY YELLOW FLUID NOTED. IV ACCESS IN R HAND WITH NS INFUSING PATENT AND INTACT, NO SIGNS OF REDNESS OR INFILTRATION. NO SIGNIFICANT CHANGES THROUGH THE NIGHT. PATIENT KEPT CLEAN DRY AND COMFORTABLE. REPOSITIONED Q2HRS. BED IN LOW LOCKED POSITION WITH SIDE RAILS X2. CALL LIGHT WITHIN REACH. WILL ENDORSED TO AM SHIFT FOR JOANIE.
[2016-05-19 07:12] LABS: CALCIUM, SERUM 8.9 mg/dL (8.5-10.1); CREATININE 1.5 mg/dL (0.6-1.3); POTASSIUM 4.6 mmol/L (3.5-5.1)
[2016-05-19 07:24] LABS: BASOPHILS % (AUTO) 0.2 % (0.0-2.0); EOSINOPHILS # (AUTO) 0.2 /CMM (0.0-0.7); EOSINOPHILS % (AUTO) 3.2 % (0.0-6.0); LYMPHOCYTES # (AUTO) 1.2 /CMM (0.8-4.8); LYMPHOCYTES % (AUTO) 19.1 % (20.0-44.0); MEAN CORPUSCULAR HEMOGLOBIN 29 PG (26.0-33.0); MEAN CORPUSCULAR HGB CONC 33 g/dl (31.0-36.0); MONOCYTES # (AUTO) 0.5 /CMM (0.1-1.30); NEUTROPHILS # (AUTO) 4.2 /CMM (1.8-8.9); NEUTROPHILS % (AUTO) 69.5 % (43.0-81.0); PLATELET COUNT (AUTO) 205 /CMM (150-450); RDW COEFFICIENT OF VARIATION 14.4 (11.5-15.0); RED BLOOD CELL COUNT(AUTO) 2.63 MIL/uL (4.5-6.0); WHITE BLOOD COUNT (AUTO) 6.2 K/uL (4.3-11.0)
[2016-05-19 07:25] LABS: HEMATOCRIT 24 % (39-51); MEAN CORPUSCULAR VOLUME 89 fL (80-96)
[2016-05-19 07:26] LABS: HEMOGLOBIN 7.7 g/dL (13.5-17.5)
[2016-05-19] MEDS: LEVOTHYROXINE SODIUM 125 MCG TABLET PO SCH (07:35)
[2016-05-19] MEDS: PANTOPRAZOLE 40 MG TABLET.DR PO SCH (07:35)
--- NOTE | 2016-05-19 07:38 | NUR ---
MS RN OPENING NOTE PATIENT RECEIVED ASLEEP IN BED AND AROUSABLE. ALERT AND ORIENTED X 1. HOB ELEVATED. ON OXYGEN INHALATION @ 2L/MIN, NO SOB NOTED. NO SIGNS OF PAIN OR DISCOMFORTS AT THIS TIME. DE LA CRUZ INTACT AND PATENT WITH CLEAR YELLOW URINE NOTED @ BEDSIDE DRAINAGE BAG. BED LOCKED AND IN LOWEST POSITION WITH SIDE RAILS UP x2. SAFETY MEASURES MAINTAINED. CALL LIGHT WITHIN REACH. IV ACCESS ON RIGHT HAND INTACT AND PATENT WITH NS @ 100ML/HR INFUSING WELL. WILL CONTINUE TO MONITOR ACCORDINGLY.
[2016-05-19 08:00] VITALS: BP 102/53
[2016-05-19] MEDS: TAMSULOSIN 0.4 MG CAP.SR.24H PO SCH (08:43)
[2016-05-19] MEDS: MEMANTINE HCL 5 MG TABLET PO SCH ×2 (08:43→16:17)
[2016-05-19] MEDS: DONEPEZIL 5 MG TABLET PO SCH (08:43)
[2016-05-19] MEDS: METOPROLOL TARTRATE 25 MG TABLET PO SCH ×2 (08:45→21:00)
[2016-05-19] MEDS: FLUTICASONE/SALMETEROL DISKUS IH SCH ×2 (08:46→16:18)
--- NOTE | 2016-05-19 09:24 | NUR ---
RN NOTES INFORMED DR VÁSQUEZ REGARDING PT'S LOW RBC 2.63, HGB 7.7, HCT24, BUN 45 AND CRETININE 1.5. WILL CONTINUE TO MONITOR PATIENT'S STATUS.
[2016-05-19] MEDS: BOOST GLUCOSE CONTROL VANILLA 237 ML BOX PO SCH ×2 (09:41→13:50)
[2016-05-19] MEDS: IV NS 0.9% 1,000 ML IV PRN (11:01)
[2016-05-19] MEDS: INSULIN REGULAR, HUMAN 100 UNIT/ML 3 ML VIAL SQ PRN ×2 (12:38→17:52)
[2016-05-19] MEDS: HYDROCODONE/APAP 5/325MG 1 EACH TABLET PO PRN (15:21)
--- NOTE | 2016-05-19 15:35 | NUR ---
RN NOTES PATIENT NOTED WITH MINIMAL AMOUNT OF BLEEDING COMING FROM DE LA CRUZ AND PENIS. PATIENT OBSERVED PULLING DE LA CRUZ. DE LA CRUZ SECURED WITH ANCHOR. MD MADE AWARE, NO NEW ORDER MADE. SON AT BEDSIDE. WILL CONTINUE TO CLOSELY MONITOR RESIDENT TO PREVENT HIM FROM PULLING HIS DE LA CRUZ CATHETER.
[2016-05-19 15:41] VITALS: BP 120/42
--- NOTE | 2016-05-19 18:58 | NUR ---
RN CLOSING NOTES PATIENT AWAKE AND RESTING IN BED WITH FAMILY AT BEDSIDE. A/O X1-2, NO SIGNS OF DISTRESS OR DISCOMFORT. CONTINUES ON 2LPM O2 VIA NC, NO SIGNS OF RESPIRATORY DISTRESS DURING TOUR. F/C INTACT WITH CLEAR YELLOW URINE NOTED. IV ACCESS IN RIGHT HAND WITH NS @ 100ML/HR INFUSING WELL, NO SIGNS OF INFILTRATION NOTED. PATIENT KEPT CLEAN DRY AND COMFORTABLE. REPOSITIONED Q2HRS. BED IN LOW LOCKED POSITION WITH SIDE RAILS UP X2. CALL LIGHT WITHIN REACH. ALL DUE MEDS GIVEN ORDERED AND ALL NEEDS PROVIDED WELL. WILL ENDORSED TO ARMY RANGER FOR JOANIE.
--- NOTE | 2016-05-19 19:55 | NUR ---
RN OPENING NOTES RECEIVED REPORT FROM HORACE KIM RN. FOUND Pt AWAKE RESTING IN BED WITH FAMILY VISITING AT BEDSIDE. DE LA CRUZ CATHETER SECURED IN PLACE. SOME BLEEDING FROM PENIS, AWARE FROM JUDY. IV ACCESS ON R HAND #20G, NS @100ML/HR. SAFETY MEASURES IN PLACE. BED LOW, LOCKED, HOB ELEVATED, SIDE RAILS UP, CALL LIGHT AND BEDSIDE TABLE WITHIN REACH, BED ALARM ON. WILL CONTINUE TO MONITOR Pt FOR SAFETY.
[2016-05-19 20:00] VITALS: BP 111/49
[2016-05-19] MEDS: MIRTAZAPINE 15 MG TABLET PO SCH (21:52)
[2016-05-19 22:00] VITALS: BP 111/49
[2016-05-19] MEDS: *INSULIN REGULAR(HUMULIN R)HUM 100 UNIT/ML VIAL SQ PRN (22:07)
--- NOTE | 2016-05-19 22:12 | NUR ---
RN NOTES BG 155. ADMINISTERED 2UN OF INSULIN.
--- NOTE | 2016-05-20 | NUR ---
RN NOTES HR WAS AT 47 @2000, ALL OTHER VS WAS WNL. Pt WAS AWAKE & RESPONSIVE. SHOWING NO SIGNS OF DISTRESS OR SOB. RECHECK HR AT 2400, HR WENT UP TO 60. WILL CONTINUE TO MONITOR Pt FOR SAFETY.
[2016-05-20] MEDS: IV NS 0.9% 1,000 ML IV PRN (01:41)
[2016-05-20] MEDS: CEFTRIAXONE 1 G in IV D5W 50 ML IV SCH (01:41)
[2016-05-20] MEDS: HYDROCODONE/APAP 5/325MG 1 EACH TABLET PO PRN (05:23)
--- NOTE | 2016-05-20 07:00 | NUR ---
RN NOTES BG 136. ADMINISTERED 2UN OF INSULIN PER SLIDING SCALE.
--- NOTE | 2016-05-20 07:00 | NUR ---
RN CLOSING NOTES NO SIGNIFICANT CHANGES DURING THE NIGHT. NO S/S OF ACUTE DISTRESS OR SOB NOTED. ALL NEEDS MET AND ATTENDED TO. SAFETY MEASURES IN PLACE. WILL ENDORSE TO DAYSHIFT RN FOR Pt's JOANIE.
[2016-05-20] MEDS: BLOOD SUGAR DIAGNOSTIC 1 EACH STRIP VI SCH ×4 (07:01→21:48)
[2016-05-20] MEDS: INSULIN REGULAR, HUMAN 100 UNIT/ML 3 ML VIAL SQ PRN ×3 (07:05→17:24)
--- NOTE | 2016-05-20 07:27 | NUR ---
MS RN OPENING NOTES RECEIVED PATIENT AWAKE ANRESTING IN BED IN NO ACUTE SIGNS OF DISTRESS. ALERT AND FOLLOWS SIMPLE COMMANDS. ON O2 VIA N/C @ 2L/MIN, NO RESPIRATORY DISTRESS NOTED. NO SIGNS OF PAIN OR DISCOMFORTS AT THIS TIME. IV ACCESS ON RIGHT HAND INTACT AND PATENT WITH NS @ 100ML/HR INFUSING WELL. DE LA CRUZ INTACT AND PATENT WITH YELLOW URINE NOTED @ BEDSIDE DRAINAGE BAG. HEAD OF BED ELEVATED. BED LOCKED AND IN LOWEST POSITION WITH SIDE RAILS UP SAFETY MEASURES. CALL LIGHT WITHIN REACH. WILL CONTINUE TO MONITOR ACCORDINGLY.
[2016-05-20 07:31] LABS: BASOPHILS % (AUTO) 0.2 % (0.0-2.0); EOSINOPHILS # (AUTO) 0.1 /CMM (0.0-0.7); EOSINOPHILS % (AUTO) 2.1 % (0.0-6.0); HEMATOCRIT 23 % (39-51); HEMOGLOBIN 7.7 g/dL (13.5-17.5); LYMPHOCYTES # (AUTO) 1.3 /CMM (0.8-4.8); LYMPHOCYTES % (AUTO) 18.3 % (20.0-44.0); MEAN CORPUSCULAR HEMOGLOBIN 30 PG (26.0-33.0); MEAN CORPUSCULAR HGB CONC 33 g/dl (31.0-36.0); MEAN CORPUSCULAR VOLUME 89 fL (80-96); MONOCYTES # (AUTO) 0.4 /CMM (0.1-1.30); MONOCYTES % (AUTO) 5.9 % (2.0-12.0); NEUTROPHILS # (AUTO) 5.2 /CMM (1.8-8.9); NEUTROPHILS % (AUTO) 73.5 % (43.0-81.0); PLATELET COUNT (AUTO) 204 /CMM (150-450); RDW COEFFICIENT OF VARIATION 13.9 (11.5-15.0); RED BLOOD CELL COUNT(AUTO) 2.59 MIL/uL (4.5-6.0)
[2016-05-20 07:56] LABS: CALCIUM, SERUM 8.4 mg/dL (8.5-10.1); CREATININE 1.4 mg/dL (0.6-1.3); MAGNESIUM 1.9 mg/dL (1.8-2.4); PHOSPHORUS 2.6 mg/dL (2.5-4.9); POTASSIUM 4.1 mmol/L (3.5-5.1)
[2016-05-20] MEDS: LEVOTHYROXINE SODIUM 125 MCG TABLET PO SCH (07:56)
[2016-05-20] MEDS: PANTOPRAZOLE 40 MG TABLET.DR PO SCH ×2 (07:56→15:15)
[2016-05-20 08:00] VITALS: BP 113/63
[2016-05-20] MEDS: TAMSULOSIN 0.4 MG CAP.SR.24H PO SCH (08:54)
[2016-05-20] MEDS: FLUTICASONE/SALMETEROL DISKUS IH SCH ×2 (08:54→16:44)
[2016-05-20] MEDS: DONEPEZIL 5 MG TABLET PO SCH (08:55)
[2016-05-20] MEDS: MEMANTINE HCL 5 MG TABLET PO SCH ×2 (08:56→16:44)
[2016-05-20] MEDS: METOPROLOL TARTRATE 25 MG TABLET PO SCH ×2 (08:57→21:48)
--- NOTE | 2016-05-20 10:07 | NUR ---
RN NOTES PATIENT NOTED WITH ABNORMAL BLOOD RESULTS OF RBC 2.59, HGB 7.7, HCT 23, BUN 41 CREAT 1.4, CA 8.4, CHLORIDE 110. DR VÁSQUEZ MADE AWARE WITH ORDER TO REPEAT BMP AND CBC IN THE MORNING. WILL CONTINUE TO MONITOR.
[2016-05-20] MEDS: BOOST GLUCOSE CONTROL VANILLA 237 ML BOX PO SCH ×2 (10:45→14:25)
[2016-05-20 14:45] LABS: IRON, SERUM 41 ug/dl (50-175); TOTAL IRON BINDING CAPACITY 94 ug/dl (250-450)
[2016-05-20 16:00] VITALS: BP 119/79
--- NOTE | 2016-05-20 19:08 | NUR ---
RN CLOSING NOTES PATIENT AWAKE IN BED IN NO ACUTE SIGNS OF DISTRESS. ALERT AND ORIENTED X1-2 WITH PERIODS OF CONFUSION DURING THE DAY. CONTINUES ON 2LPM O2 VIA NC, NO SIGNS OF RESPIRATORY DISTRESS NOTED. DE LA CRUZ INTACT WITH CLEAR YELLOW URINE NOTED, MINIMAL AMOUNT OF BLOOD FROM PENIS NOTED, MD AWARE. IV ACCESS ON RIGHT HAND WITH NS @ 100ML/HR INFUSING WELL, NO SIGNS OF INFILTRATION NOTED. PATIENT KEPT CLEAN. DRY AND COMFORTABLE. BED LOW, LOCKED WITH SIDE RAILS UP FOR SAFETY. CALL LIGHT WITHIN REACH. ALL DUE MEDS GIVEN ORDERED AND ALL NEEDS PROVIDED WELL. ENDORSED TO BONDING SUPERVISOR TO CONTINUE CARE.
--- NOTE | 2016-05-20 19:30 | NUR ---
MS RN INITIAL NOTE RECEIVED PT SLEEPING, EASILY AROUSED, SON AT BEDSIDE, ORIENTED X1-2, NO SIGNS OF PAIN OR RESPIRATORY DISTRESS NOTED DURING PHYSICAL ASSESSMENT, DE LA CRUZ CATHETER IN PLACE, BLOOD NOTED COMING FROM URETHRA MD AWARE, HGB CURRENTLY 7.7 MD AWARE ORDER TO RECHECK HGB WITH AM LABS, PT WILL BE KEPT CLEAN/DRY AND COMFORTABLE, SAFETY MEASURES WILL BE MAINTAINED, WILL ATTEND TO NEEDS DURING HOURLY ROUNDS AND NEEDED.
[2016-05-20 20:00] VITALS: BP 116/60
[2016-05-20] MEDS: MIRTAZAPINE 15 MG TABLET PO SCH (21:47)
[2016-05-20] MEDS: *INSULIN REGULAR(HUMULIN R)HUM 100 UNIT/ML VIAL SQ PRN (21:58)
[2016-05-21] MEDS: CEFTRIAXONE 1 G in IV D5W 50 ML IV SCH (00:35)
[2016-05-21] MEDS: IV NS 0.9% 1,000 ML IV PRN ×3 (00:35→22:44)
--- NOTE | 2016-05-21 06:38 | NUR ---
MS RN CLOSING NOTE PT REMAINED STABLE DURING NIGHTSHIFT, NO SIGNS OF PAIN OR RESPIRATORY DISTRESS NOTED, 1:1 SITTER AT BEDSIDE, PT ENCOURAGED TO REPOSITION EVERY 2 HOURS TO PREVENT SKIN BREAKDOWN, CLEAN/DRY AND COMFORTABLE, SAFETY MEASURES MAINTAINED, ALL NEEDS ANTICIPATED AND ATTENDED TO, WILL ENDORSE TO INCOMING NURSE FOR JOANIE.
[2016-05-21 06:52] VITALS: BP 141/65
[2016-05-21] MEDS: BLOOD SUGAR DIAGNOSTIC 1 EACH STRIP VI SCH ×4 (06:56→22:15)
[2016-05-21] MEDS: INSULIN REGULAR, HUMAN 100 UNIT/ML 3 ML VIAL SQ PRN ×3 (07:02→17:06)
[2016-05-21 07:15] LABS: CALCIUM, SERUM 8.9 mg/dL (8.5-10.1); CREATININE 1.4 mg/dL (0.6-1.3); MAGNESIUM 1.9 mg/dL (1.8-2.4); PHOSPHORUS 2.3 mg/dL (2.5-4.9); POTASSIUM 4.2 mmol/L (3.5-5.1)
[2016-05-21] MEDS: PANTOPRAZOLE 40 MG TABLET.DR PO SCH ×2 (07:30→08:13)
[2016-05-21 07:40] LABS: BASOPHILS % (AUTO) 0.2 % (0.0-2.0); EOSINOPHILS # (AUTO) 0.2 /CMM (0.0-0.7); EOSINOPHILS % (AUTO) 3.1 % (0.0-6.0); HEMATOCRIT 26 % (39-51); HEMOGLOBIN 8.4 g/dL (13.5-17.5); LYMPHOCYTES # (AUTO) 1.3 /CMM (0.8-4.8); MEAN CORPUSCULAR HEMOGLOBIN 29 PG (26.0-33.0); MEAN CORPUSCULAR HGB CONC 33 g/dl (31.0-36.0); MEAN CORPUSCULAR VOLUME 89 fL (80-96); MONOCYTES # (AUTO) 0.5 /CMM (0.1-1.30); MONOCYTES % (AUTO) 9.1 % (2.0-12.0); NEUTROPHILS # (AUTO) 3.9 /CMM (1.8-8.9); NEUTROPHILS % (AUTO) 65.6 % (43.0-81.0); PLATELET COUNT (AUTO) 225 /CMM (150-450); RDW COEFFICIENT OF VARIATION 14.2 (11.5-15.0)
[2016-05-21] MEDS: LEVOTHYROXINE SODIUM 125 MCG TABLET PO SCH (08:13)
[2016-05-21] MEDS: MEMANTINE HCL 5 MG TABLET PO SCH ×2 (08:13→16:27)
[2016-05-21] MEDS: TAMSULOSIN 0.4 MG CAP.SR.24H PO SCH (08:13)
[2016-05-21] MEDS: METOPROLOL TARTRATE 25 MG TABLET PO SCH ×2 (08:15→21:00)
--- NOTE | 2016-05-21 08:16 | NUR ---
M/S MANAGER BILLING: NOTES NOTED WITH 2 PROTONIX 40MG PO ORDERED, PHARMACIST (FRED) NOTIFIED AND MADE AWARE.
[2016-05-21] MEDS: FLUTICASONE/SALMETEROL DISKUS IH SCH ×2 (08:27→16:29)
[2016-05-21] MEDS: DONEPEZIL 5 MG TABLET PO SCH (08:27)
[2016-05-21] MEDS: BOOST GLUCOSE CONTROL VANILLA 237 ML BOX PO SCH ×2 (08:28→14:00)
[2016-05-21 12:16] LABS: BASOPHILS % (AUTO) 0.3 % (0.0-2.0); EOSINOPHILS # (AUTO) 0.2 /CMM (0.0-0.7); EOSINOPHILS % (AUTO) 4.2 % (0.0-6.0); HEMATOCRIT 22 % (39-51); HEMOGLOBIN 7.1 g/dL (13.5-17.5); LYMPHOCYTES # (AUTO) 1.4 /CMM (0.8-4.8); LYMPHOCYTES % (AUTO) 24.9 % (20.0-44.0); MEAN CORPUSCULAR HEMOGLOBIN 28 PG (26.0-33.0); MEAN CORPUSCULAR HGB CONC 32 g/dl (31.0-36.0); MEAN CORPUSCULAR VOLUME 88 fL (80-96); MONOCYTES # (AUTO) 0.6 /CMM (0.1-1.30); MONOCYTES % (AUTO) 10.8 % (2.0-12.0); NEUTROPHILS # (AUTO) 3.3 /CMM (1.8-8.9); NEUTROPHILS % (AUTO) 59.8 % (43.0-81.0); PLATELET COUNT (AUTO) 185 /CMM (150-450); RDW COEFFICIENT OF VARIATION 13.8 (11.5-15.0); RED BLOOD CELL COUNT(AUTO) 2.52 MIL/uL (4.5-6.0); WHITE BLOOD COUNT (AUTO) 5.5 K/uL (4.3-11.0)
--- NOTE | 2016-05-21 12:30 | NUR ---
m/s supervisor spinning: notes noted with discharge order from dr. cox. repeat cbc resulted with hgb 7.1 and hct 22. no active bleeding noted. dr. cox was paged by cn re: hgb/hct result. awaiting call back. will continue to monitor.
--- NOTE | 2016-05-21 12:45 | NUR ---
m/s journeyman pipefitter: notes per cn discharge is on hold per dr. cox. will continue to monitor.
--- NOTE | 2016-05-21 15:00 | NUR ---
m/s electronic scale tester: notes resting comfortable in bed with no distress noted. will continue to monitor.
[2016-05-21] MEDS ORDERED: K PHOS NEUTRAL 250 MG TABLET PO ONE (15:30)
[2016-05-21 16:00] VITALS: BP 108/53
[2016-05-21 16:30] VITALS: BP 108/53
--- NOTE | 2016-05-21 18:20 | NUR ---
m/s control operator flow coat: notes resting comfortable in bed with no distress noted. needs attended. no s/s of discomfort. call light within reach. will continue to monitor.
--- NOTE | 2016-05-21 19:35 | NUR ---
MS/RN NOTES RECEIVED PT. LYING IN BED RESTING. PT. IS EASILY AROUSABLE. AWAKE, ALERT AND ORIENTED TO SELF. BREATHING EVEN AND UNLABORED ON ROOM AIR. NO SOB, RESPIRATORY DISTRESS OR COMPLAINTS OF PAIN NOTED AT THIS TIME. PT. WITH RIGHT HAND PERIPHERAL IV PRESENT, PATENT AND INTACT ADMINISTERING TO PT. NS @ 100ML/HR. PT. TOLERATING WELL. PT. WITH DE LA CRUZ CATHETER PRESENT, PATENT AND INTACT DRAINING CLEAR YELLOW URINE. BED IN LOWEST POSITION, BED ALARM ON, SIDE RAILS UP X2, CALL LIGHT WITHIN REACH, WILL CONTINUE TO MONITOR.
[2016-05-21 21:15] VITALS: BP 126/56
[2016-05-21] MEDS: MIRTAZAPINE 15 MG TABLET PO SCH (21:50)
[2016-05-21] MEDS: SENNOSIDES/DOCUSATE SODIUM 1 TAB TABLET PO SCH (21:50)
[2016-05-21] MEDS: SULFAMETH/TRIMETH 800/160 MG 1 UDTAB TABLET PO SCH (21:50)
[2016-05-21] MEDS: *INSULIN REGULAR(HUMULIN R)HUM 100 UNIT/ML VIAL SQ PRN (22:17)
[2016-05-21] MEDS ORDERED: IV NS 0.9% 1,000 ML ONE (22:39)
[2016-05-22] VITALS (11 sets, daily range): BP systolic 114–136; BP diastolic 63–81
[2016-05-22] MEDS: IPRATROPIUM NEB FS 0.5 MG/2.5 ML AMPUL.NEB NEB PRN (05:17)
[2016-05-22] MEDS: ALBUTEROL FS 2.5 MG/3 ML VIAL.NEB NEB PRN (05:17)
[2016-05-22] MEDS: BLOOD SUGAR DIAGNOSTIC 1 EACH STRIP VI SCH ×4 (06:39→22:22)
--- NOTE | 2016-05-22 07:10 | NUR ---
MS/RN NOTES PT. LYING IN BED RESTING. BREATHING EVEN AND UNLABORED ON 2LPM O2 VIA NC. NO SOB, RESPIRATORY DISTRESS OR S/S OF PAIN NOTED AT THIS TIME. NO S/S OF HYPO/HYPERGLYCEMIA NOTED THROUGHOUT SHIFT. PT. WITH RIGHT HAND PERIPHERAL IV PRESENT, PATENT AND INTACT ADMINISTERING TO PT. NS @ 100ML/HR. PT. WITH DE LA CRUZ CATHETER PRESENT, PATENT AND INTACT DRAINING CLEAR YELLOW URINE. ALL PT. NEEDS MET. BED IN LOWEST POSITION, BED ALARM ON, SIDE RAILS UP X2, CALL LIGHT WITHIN REACH, WILL ENDORSE TO DAYSHIFT NURSE FOR CONTINUITY OF CARE.
[2016-05-22 07:37] LABS: BASOPHILS % (AUTO) 0.3 % (0.0-2.0); EOSINOPHILS # (AUTO) 0.3 /CMM (0.0-0.7); EOSINOPHILS % (AUTO) 3.9 % (0.0-6.0); HEMATOCRIT 22 % (39-51); HEMOGLOBIN 7.1 g/dL (13.5-17.5); LYMPHOCYTES # (AUTO) 1.4 /CMM (0.8-4.8); LYMPHOCYTES % (AUTO) 22.4 % (20.0-44.0); MEAN CORPUSCULAR HEMOGLOBIN 29 PG (26.0-33.0); MEAN CORPUSCULAR HGB CONC 32 g/dl (31.0-36.0); MEAN CORPUSCULAR VOLUME 89 fL (80-96); MONOCYTES # (AUTO) 0.6 /CMM (0.1-1.30); MONOCYTES % (AUTO) 9.3 % (2.0-12.0); NEUTROPHILS # (AUTO) 4.1 /CMM (1.8-8.9); NEUTROPHILS % (AUTO) 64.1 % (43.0-81.0); PLATELET COUNT (AUTO) 225 /CMM (150-450); RDW COEFFICIENT OF VARIATION 14.3 (11.5-15.0); RED BLOOD CELL COUNT(AUTO) 2.47 MIL/uL (4.5-6.0); WHITE BLOOD COUNT (AUTO) 6.5 K/uL (4.3-11.0)
[2016-05-22 07:50] LABS: CALCIUM, SERUM 8.6 mg/dL (8.5-10.1); CREATININE 1.3 mg/dL (0.6-1.3); POTASSIUM 3.7 mmol/L (3.5-5.1)
--- NOTE | 2016-05-22 08:00 | NUR ---
AM RN NOTE Received patient sleeping comfortably in his bed. No SOB noted resp even and non-labored. IV site intact and patent. Bed in low locked position. Will continue to monitor.
[2016-05-22] MEDS: TAMSULOSIN 0.4 MG CAP.SR.24H PO SCH (08:39)
[2016-05-22] MEDS: PANTOPRAZOLE 40 MG TABLET.DR PO SCH (08:39)
[2016-05-22] MEDS: SULFAMETH/TRIMETH 800/160 MG 1 UDTAB TABLET PO SCH (08:39)
[2016-05-22] MEDS: DONEPEZIL 5 MG TABLET PO SCH (08:39)
[2016-05-22] MEDS: MEMANTINE HCL 5 MG TABLET PO SCH ×2 (08:40→17:15)
[2016-05-22] MEDS: METOPROLOL TARTRATE 25 MG TABLET PO SCH ×2 (08:40→21:23)
[2016-05-22] MEDS: LEVOTHYROXINE SODIUM 125 MCG TABLET PO SCH (08:40)
[2016-05-22] MEDS: BOOST GLUCOSE CONTROL VANILLA 237 ML BOX PO SCH ×2 (08:44→12:58)
[2016-05-22] MEDS: FLUTICASONE/SALMETEROL DISKUS IH SCH ×2 (08:46→17:20)
--- NOTE | 2016-05-22 12:00 | NUR ---
HAILY GUEVARA NOTE IV site on right hand noted with leakage, re-inserted new site on left hand #22 x1 attempt. Addendum: 05/23/16 at 0905 by FAITH REINA RN Consent for blood transfusion was obtained from Daughter (Darby) over the phone as witnessed by another Nurse (Claudy).
[2016-05-22] MEDS: INSULIN REGULAR, HUMAN 100 UNIT/ML 3 ML VIAL SQ PRN ×3 (12:14→21:37)
[2016-05-22] MEDS: IV NS 0.9% 1,000 ML IV PRN (12:59)
[2016-05-22] MEDS ORDERED: BLOOD IV SET 1 EA INFUS.SET MC ONE (14:40)
[2016-05-22] MEDS ORDERED: IV NS 0.9% 250 ML IV ONE (14:40)
[2016-05-22] MEDS ORDERED: FEE PK DOSING 1 MIN EA MC ONE (17:01)
[2016-05-22 17:27] LABS: FREE PSA 0.45 ng/mL (0.00-45); PROSTATE SPECIFIC ANTIGEN SCR 2.46 ng/mL (0.00-4.00)
[2016-05-22] MEDS ORDERED: SECONDARY IV SET 1 EA INFUS.SET MC ONE (17:51)
[2016-05-22] MEDS: VANCOMYCIN 1 GM in IV D5W 250 ML IV SCH (18:10)
--- NOTE | 2016-05-22 18:30 | NUR ---
AM RN NOTE Patient lying in his bed, ate dinner. 1 unit packed cells infused and tolerated well. V/S monitored. Denies any pain or discomfort at this time. Will continue to monitor. Will endorse to next shift for JOANIE.
[2016-05-22] MEDS: MIRTAZAPINE 15 MG TABLET PO SCH (21:21)
[2016-05-22] MEDS: SENNOSIDES/DOCUSATE SODIUM 1 TAB TABLET PO SCH (21:22)
--- NOTE | 2016-05-22 21:23 | NUR ---
RN NOTES: LOPRESSOR 12.5 MG IS GIVEN PRESCRIBED.
--- NOTE | 2016-05-23 00:24 | NUR ---
RN NOTES: NEW IV ACCESS IS ESTABLISHED ON THE RIGHT HAND GAUGE 22. THE PREVIOUS IV ACCESS IS REMOVED DUE TO LEAKING. WILL CONTINUE TO MONITOR.
[2016-05-23] MEDS: ALBUTEROL FS 2.5 MG/3 ML VIAL.NEB NEB PRN ×2 (04:19→17:01)
[2016-05-23] MEDS: IPRATROPIUM NEB FS 0.5 MG/2.5 ML AMPUL.NEB NEB PRN ×2 (04:19→17:01)
[2016-05-23] MEDS: IV NS 0.9% 1,000 ML IV PRN (05:42)
[2016-05-23] MEDS: BLOOD SUGAR DIAGNOSTIC 1 EACH STRIP VI SCH ×3 (07:07→16:40)
[2016-05-23 07:15] LABS: BASOPHILS % (AUTO) 0.3 % (0.0-2.0); EOSINOPHILS # (AUTO) 0.3 /CMM (0.0-0.7); EOSINOPHILS % (AUTO) 4.6 % (0.0-6.0); HEMATOCRIT 25 % (39-51); HEMOGLOBIN 8.3 g/dL (13.5-17.5); LYMPHOCYTES # (AUTO) 1.2 /CMM (0.8-4.8); MEAN CORPUSCULAR HEMOGLOBIN 30 PG (26.0-33.0); MEAN CORPUSCULAR HGB CONC 33 g/dl (31.0-36.0); MEAN CORPUSCULAR VOLUME 89 fL (80-96); MONOCYTES # (AUTO) 0.6 /CMM (0.1-1.30); MONOCYTES % (AUTO) 8.2 % (2.0-12.0); NEUTROPHILS # (AUTO) 4.7 /CMM (1.8-8.9); NEUTROPHILS % (AUTO) 68.9 % (43.0-81.0); PLATELET COUNT (AUTO) 232 /CMM (150-450); RDW COEFFICIENT OF VARIATION 14.2 (11.5-15.0); RED BLOOD CELL COUNT(AUTO) 2.81 MIL/uL (4.5-6.0); WHITE BLOOD COUNT (AUTO) 6.8 K/uL (4.3-11.0)
--- NOTE | 2016-05-23 07:41 | NUR ---
AM RN NOTE Received patient sleeping in his bed but arouses upon touch. On O2 2L/min via NC. Resp even and non-labored. IV site intact and patent. Will continue to monitor. Bed in low locked position.
[2016-05-23 08:00] VITALS: BP 118/55
[2016-05-23 08:12] LABS: CALCIUM, SERUM 8.6 mg/dL (8.5-10.1); CREATININE 1.4 mg/dL (0.6-1.3); MAGNESIUM 1.8 mg/dL (1.8-2.4); PHOSPHORUS 2.7 mg/dL (2.5-4.9); POTASSIUM 3.9 mmol/L (3.5-5.1)
[2016-05-23] MEDS: LEVOTHYROXINE SODIUM 125 MCG TABLET PO SCH (08:16)
[2016-05-23] MEDS: MEMANTINE HCL 5 MG TABLET PO SCH ×2 (08:17→16:37)
[2016-05-23] MEDS: TAMSULOSIN 0.4 MG CAP.SR.24H PO SCH (08:17)
[2016-05-23] MEDS: PANTOPRAZOLE 40 MG TABLET.DR PO SCH (08:17)
[2016-05-23] MEDS: DONEPEZIL 5 MG TABLET PO SCH (08:17)
[2016-05-23] MEDS: METOPROLOL TARTRATE 25 MG TABLET PO SCH (08:18)
[2016-05-23] MEDS: FLUTICASONE/SALMETEROL DISKUS IH SCH ×2 (08:23→16:37)
[2016-05-23] MEDS: BOOST GLUCOSE CONTROL VANILLA 237 ML BOX PO SCH ×2 (09:49→14:41)
--- NOTE | 2016-05-23 10:29 | NUR ---
WOUND CARE CONSULT/FOLLOW UP: PT SEEN PER REQUEST OF RN FOR SLIGHT EXCORIATION TO RT BUTTOCKS. RECOMMENDATIONS MADE AND DISCUSSED WITH NURSING STAFF. PT ON WALTER ISOFLEX LOW AIRLOSS BED. CONTINUE ALL SKIN PROTECTION MEASURES. MD IN AGREEMENT WITH PLAN OF CARE.
--- NOTE | 2016-05-23 10:43 | NUR ---
AM RN NOTE Patient lying in his bed noted with slight excoriation on right buttocks area. Pt seen and assessed by Deyanira (Wound nurse) with tx orders. Tx done, repositioned, on Isoflex mattress. Will continue to monitor. Skin pic taken and placed in chart.
[2016-05-23] MEDS: VANCOMYCIN 1 GM in IV D5W 250 ML IV SCH (11:29)
[2016-05-23] MEDS ORDERED: VANC500V IV (11:37)
[2016-05-23] MEDS: INSULIN REGULAR, HUMAN 100 UNIT/ML 3 ML VIAL SQ PRN (11:45)
[2016-05-23 16:00] VITALS: BP 124/59
--- NOTE | 2016-05-23 16:00 | NUR ---
AM RN NOTE Patient awake ambulated to bathroom and had large BM. Patient lying in his bed, A/O X1 verbally responsive. Denies any pain at this time. Discharge order given by Dr. Crum today. Called [facility] and spoke with Gema (RN) report given on pt. Gema made aware about vanco trough to be drawn tomorrow. Skin pic taken and placed in chart. Called daughter (Opal) made aware about discharge. Will continue to monitor pt. V/S BP124/59 T97.5 P80 R18 O2 sat 100% @ o2 2l/MIN via NC.
--- NOTE | 2016-05-23 17:56 | NUR ---
AM RN NOTE Patient awake, A/O X1 verbally responsive. Denies any pain or discomfort at this time. EMT's at bedside, report given, V/S stable. HL and ID band removed. Patient discharged/ left unit via gurney as accompanied by 2 EMT's at this time.
== END 2016-05-23 18:00 | DRG 689 ==
LOC: ER 23:30 → MEDSG2 05-18 01:52 → TELE 05-18 02:02 → MED 05-18 07:54
PROVIDERS: ADMIT Internal Medicine; ATTEND Internal Medicine
PROC: 30233N1 Transfusion of Nonautologous Red Blood Cells into Peripheral Vein, Percutaneous Approach (ICD-10-PCS; principal; 2016-05-22)
DX: N39.0 Urinary tract infection, site not specified (principal); R53.2 Functional quadriplegia; N17.9 Acute kidney failure, unspecified; I12.9 Hypertensive chronic kidney disease with stage 1 through stage 4 chronic kidney disease, or unspecified chronic kidney disease; N13.8 Other obstructive and reflux uropathy; R33.9 Retention of urine, unspecified; E11.22 Type 2 diabetes mellitus with diabetic chronic kidney disease; N18.3 Chronic kidney disease, stage 3 (moderate); N40.1 Benign prostatic hyperplasia with lower urinary tract symptoms; N35.9 Urethral stricture, unspecified; K21.9 Gastro-esophageal reflux disease without esophagitis; R33.8 Other retention of urine; E78.5 Hyperlipidemia, unspecified; G30.9 Alzheimer's disease, unspecified; F02.80 Dementia in other diseases classified elsewhere, unspecified severity, without behavioral disturbance, psychotic disturbance, mood disturbance, and anxiety; B95.2 Enterococcus as the cause of diseases classified elsewhere; I25.10 Atherosclerotic heart disease of native coronary artery without angina pectoris; Z87.891 Personal history of nicotine dependence; J44.9 Chronic obstructive pulmonary disease, unspecified; Z79.84 Long term (current) use of oral hypoglycemic drugs; E03.9 Hypothyroidism, unspecified; E83.52 Hypercalcemia; F01.50 Vascular dementia, unspecified severity, without behavioral disturbance, psychotic disturbance, mood disturbance, and anxiety; K40.90 Unilateral inguinal hernia, without obstruction or gangrene, not specified as recurrent; K57.30 Diverticulosis of large intestine without perforation or abscess without bleeding
CPT/HCPCS: 36415; 80048-TC; 80076-TC; 81000-TC; 82962-TC; 83540-TC; 83735-TC; 84100-TC; 84153-TC; 84154-TC; 85025-TC; 86850-TC; 86921-TC; 87081-TC; 87086-TC; 87186-TC; 92521; 94799-TC; 97001-TC; 97003-TC; 97110-TC; 97116-TC; 97530-TC; A4606; A6402; J0696; J1815; J2270; J2405; J3370; J3490; J7030; J7050; J7060; P9016-BL; Z7610

== ENCOUNTER 2016-10-10 14:42 | Emergency (ER) | payer MEDICARE, OTHER ==
[~2016-10-10] VITALS: Ht 175.3 cm; Wt 70.3 kg
[~2016-10-10 14:42] MED LIST changes: +SALM50DI IH; +VANC500V IV
--- NOTE | 2016-10-10 15:12 | NUR ---
BIB EMS FOR URINARY RETENTION PULLED OUT DE LA CRUZ NO URINE OUTPUT FROM SNF
[2016-10-10] MEDS ORDERED: LIDOCAINE 2% JEL UROJET 10 ML MM ONE (15:42)
[2016-10-10 15:57] LABS: BASOPHILS % (AUTO) 0.5 % (0.0-2.0); EOSINOPHILS # (AUTO) 0.4 /CMM (0.0-0.7); EOSINOPHILS % (AUTO) 5.6 % (0.0-6.0); HEMATOCRIT 37 % (39-51); HEMOGLOBIN 12.1 g/dL (13.5-17.5); LYMPHOCYTES # (AUTO) 1.6 /CMM (0.8-4.8); LYMPHOCYTES % (AUTO) 23.2 % (20.0-44.0); MEAN CORPUSCULAR HEMOGLOBIN 30 PG (26.0-33.0); MEAN CORPUSCULAR HGB CONC 33 g/dl (31.0-36.0); MEAN CORPUSCULAR VOLUME 92 fL (80-96); MONOCYTES # (AUTO) 0.8 /CMM (0.1-1.30); MONOCYTES % (AUTO) 11.2 % (2.0-12.0); NEUTROPHILS # (AUTO) 4.1 /CMM (1.8-8.9); NEUTROPHILS % (AUTO) 59.5 % (43.0-81.0); PLATELET COUNT (AUTO) 254 /CMM (150-450); RED BLOOD CELL COUNT(AUTO) 4.01 MIL/uL (4.5-6.0); WHITE BLOOD COUNT (AUTO) 6.9 K/uL (4.3-11.0)
[2016-10-10] MEDS: LIDOCAINE 2% JEL UROJET 10 ML MM ONE (15:57)
[2016-10-10 15:58] LABS: APPEARANCE,URINE Clear (CLEAR); BILIRUBIN,URINE Negative (NEGATIVE); BLOOD, URINE Small Ery/uL (NEGATIVE); COLOR,URINE Yellow (YELLOW); KETONES,URINE Negative (NEGATIVE); LEUKOCYTE ESTERASE ,URINE Trace (NEGATIVE); NITRITE, URINE Negative (NEGATIVE); PH,URINE 5.5 (5.0-8.0); PROTEIN,URINE Trace mg/dl (NEGATIVE); UGLUCOSE Negative (NEGATIVE); UROBILINOGEN,URINE 0.2 EU/dL (0.2)
[2016-10-10 16:07] LABS: CALCIUM, SERUM 9.2 mg/dL (8.5-10.1); CARBON DIOXIDE 26 mmol/L (21-32); CHLORIDE 108 mmol/L (98-107); CREATININE 2.1 mg/dL (0.6-1.3); GLUCOSE 120 mg/dL (74-106); POTASSIUM 4.8 mmol/L (3.5-5.1); SODIUM SERUM 141 mmol/L (136-145); UREA NITROGEN, BLOOD 30 mg/dL (7-18)
[2016-10-10 16:09] LABS: BACTERIA,URINE Few /HPF (None Seen); SQUAMOUS EPITHELIAL CELL,UR Few /HPF (None Seen)
--- NOTE | 2016-10-10 16:29 | NUR ---
Patient discharged to home in stable condition. Written and verbal after care instructions given. Patient verbalizes understanding of instruction.
--- NOTE | 2016-10-10 16:32 | NUR ---
[facility] CALLED ETA 30 MIN.
[2016-10-10 16:45] VITALS: BP 136/74
== END 2016-10-10 17:04 | disposition home or self-care (01) ==
LOC: ER 14:54
DX: R33.9 Retention of urine, unspecified (principal); N28.9 Disorder of kidney and ureter, unspecified; D64.9 Anemia, unspecified; F03.90 Unspecified dementia, unspecified severity, without behavioral disturbance, psychotic disturbance, mood disturbance, and anxiety; I10 Essential (primary) hypertension; E11.9 Type 2 diabetes mellitus without complications; Z79.82 Long term (current) use of aspirin
CPT/HCPCS: 36415; 80048-TC; 81000-TC; 85025-TC; 87086-TC; 87186-TC; A4606; J3490; Z7610

== ENCOUNTER 2019-10-21 07:10 | Inpatient (IN) | payer MEDICARE, OTHER ==
[~2019-10-21] VITALS: Ht 167.6 cm; Wt 62.6 kg
[~2019-10-21 07:10] MED LIST changes: +ASPI-1420 PO; -ASPI-991 PO; -HYDR-3326 PO; +HYDR-3974 PO; +LEVO500T23 PO; -VANC500V IV
--- NOTE | 2019-10-21 07:10 | NUR ---
ARRON Fountain FROM [facility] FOR C/O COFFEE GROUND EMESIS AND BLOODY DIARRHEA SINCE LAST NIGHT, NOTED ON NON-REBREATHER MASK AT 15LPM O2 SAT AT 100%, TO ER BED 5, HOOKED TO SOCIAL WORK ASSISTANT, CHANGED TO HOSP GOWN,WARM BLANKET PROVIDED, PATIENT NOTED WITH DE LA CRUZ CATHETER. EYES OPEN BUT NON-VERBAL. DR TAPIA AT BEDSIDE
[2019-10-21] MEDS ORDERED: OCTREOTIDE 100 MCG/ML VIAL ONE (07:24)
[2019-10-21] MEDS ORDERED: ONDANSETRON HCL/PF 4 MG/2 ML VIAL ONE (07:24)
[2019-10-21] MEDS ORDERED: PANTOPRAZOLE 40 MG VIAL ONE (07:30)
[2019-10-21] MEDS ORDERED: PANTOPRAZOLE 40 MG VIAL IV ONE (07:30)
[2019-10-21] MEDS ORDERED: OCTREOTIDE 50 MCG/ML AMPUL IV ONE (07:30)
[2019-10-21] MEDS ORDERED: ONDANSETRON HCL/PF 4 MG/2 ML VIAL IVP ONE (07:30)
[2019-10-21] MEDS ORDERED: IV NS 0.9% 1,000 ML BAG IV ONE ×2 (07:30→09:30)
[2019-10-21] MEDS ORDERED: PANTOPRAZOLE 80 MG in IV NS 0.9% 100 ML IV ONE (07:30)
--- NOTE | 2019-10-21 07:34 | NUR ---
URINE SAMPLE COLLECTED FROM DE LA CRUZ CATHETER, SENT TO LAB
--- NOTE | 2019-10-21 07:35 | NUR ---
COVID SWAB, STOOL OCCULT BLOOD AND URINE SENT TO LAB; HANDED OVER TO PHLEB AT [facility]
[2019-10-21] MEDS ORDERED: OCTREOTIDE 50 MCG in IV NS 0.9% 50 ML IJ ONE (08:00)
[2019-10-21 08:02] LABS: BASOPHILS % (AUTO) 0.2 % (0.0-2.0); EOSINOPHILS % (AUTO) 0.2 % (0.0-6.0); HEMATOCRIT 38 % (39-51); HEMOGLOBIN 12.4 g/dL (13.5-17.5); LYMPHOCYTES # (AUTO) 0.9 /CMM (0.8-4.8); LYMPHOCYTES % (AUTO) 6.6 % (20.0-44.0); MEAN CORPUSCULAR HGB CONC 33 g/dl (31.0-36.0); MEAN CORPUSCULAR VOLUME 95 fL (80-96); MONOCYTES % (AUTO) 7.2 % (2.0-12.0); NEUTROPHILS # (AUTO) 11.4 /CMM (1.8-8.9); NEUTROPHILS % (AUTO) 85.8 % (43.0-81.0); PLATELET COUNT (AUTO) 336 /CMM (150-450); RED BLOOD CELL COUNT(AUTO) 4.03 MIL/uL (4.5-6.0); WHITE BLOOD COUNT (AUTO) 13.3 K/uL (4.3-11.0)
[2019-10-21 08:08] LABS: CALCIUM, SERUM 10.2 mg/dL (8.5-10.1); CARBON DIOXIDE 23 mmol/L (21-32); CHLORIDE 109 mmol/L (98-107); CREATININE 5.2 mg/dL (0.6-1.3); GLUCOSE 212 mg/dL (74-106); POTASSIUM 3.8 mmol/L (3.5-5.1); SODIUM SERUM 146 mmol/L (136-145)
[2019-10-21 08:10] LABS: UREA NITROGEN, BLOOD 133 mg/dL (7-18)
[2019-10-21] MEDS ORDERED: LOSA50TA39 PO (08:10)
[2019-10-21] MEDS ORDERED: MAGN400O6 PO (08:10)
[2019-10-21] MEDS ORDERED: DOCU-141 PO (08:10)
[2019-10-21] MEDS ORDERED: TYL2T PO (08:10)
[2019-10-21] MEDS ORDERED: MEMA10TA PO (08:10)
[2019-10-21] MEDS ORDERED: ACET-868 PO (08:10)
[2019-10-21] MEDS ORDERED: ASPI-1169 PO (08:10)
[2019-10-21] MEDS ORDERED: INSU100V11 SQ (08:10)
[2019-10-21] MEDS ORDERED: CALC1TAB30 PO (08:10)
[2019-10-21] MEDS ORDERED: CRAN425C6 PO (08:10)
[2019-10-21] MEDS ORDERED: QUET25TA PO (08:10)
[2019-10-21] MEDS ORDERED: CLON0.1T PO (08:10)
[2019-10-21] MEDS ORDERED: APIX2.5T PO (08:10)
[2019-10-21] MEDS ORDERED: ACID1TAB12 PO (08:10)
[2019-10-21] MEDS ORDERED: CRAN3875 PO (08:10)
[2019-10-21] MEDS ORDERED: MULT-447 PO (08:10)
[2019-10-21] MEDS ORDERED: HYDR-4384 PO (08:10)
[2019-10-21] MEDS ORDERED: BUDE10.2 IH (08:10)
[2019-10-21 08:17] LABS: ALANINE AMINOTRANSFERASE 36 U/L (12-78); ALKALINE PHOSPHATASE 139 U/L (46-116); ASPARTATE AMINOTRANSFERASE 16 U/L (15-37); BILIRUBIN,DIRECT 0.1 mg/dL (0.0-0.2); BILIRUBIN,TOTAL 0.3 mg/dL (0.2-1.0); LIPASE 150 U/L (73-393); TOTAL PROTEIN, SERUM 7.8 g/dL (6.4-8.2)
--- NOTE | 2019-10-21 08:18 | NUR ---
covid result=negative
--- NOTE | 2019-10-21 08:38 | NUR ---
bed [id number]
[2019-10-21 08:45] LABS: APPEARANCE,URINE CLOUDY (CLEAR)
[2019-10-21 08:46] LABS: COLOR,URINE BROWN (YELLOW)
[2019-10-21 08:51] LABS: BILIRUBIN,URINE NEGATIVE (NEGATIVE); BLOOD, URINE 3+ Ery/uL (NEGATIVE); KETONES,URINE NEGATIVE (NEGATIVE); PROTEIN,URINE 3+ mg/dl (NEGATIVE); UGLUCOSE 500 MG/DL mg/dL (NEGATIVE); UROBILINOGEN,URINE 0.2 EU/dL (0.2)
[2019-10-21 08:52] LABS: LEUKOCYTE ESTERASE ,URINE 2+ (NEGATIVE); NITRITE, URINE NEGATIVE (NEGATIVE)
[2019-10-21 08:57] LABS: OCCULT BLOOD STOOL POSITIVE (NEGATIVE)
[2019-10-21 09:03] LABS: BACTERIA,URINE Many /HPF (None Seen); RBC,URINE TNTN /HPF (0-2); WBC,URINE TOO NUMEROUS TO COUN /HPF (0-3)
[2019-10-21 09:04] LABS: SQUAMOUS EPITHELIAL CELL,UR Rare /HPF (None Seen)
[2019-10-21] MEDS ORDERED: CEFTRIAXONE 1 G in IV D5W 50 ML IV ONE (09:30)
--- NOTE | 2019-10-21 09:35 | NUR ---
REPORT GIVEN TO SHANEL GUEVARA OF TELE UNIT
[2019-10-21] MEDS ORDERED: CEFTRIAXONE 1GM BAG (ER ONLY) 50 ML IV ONE (09:36)
--- NOTE | 2019-10-21 10:15 | NUR ---
RN OPENING NOTE Patient was transferred to room 107 accompanied by 2 RNs on a simple mask 10 L tolerating well no signs of distress. No response to verbal stimuli but moves to localized pain. Has FC draining tea color urine. Has R hand #20 and L Hand #20 flushes well. Hooked up to tele monitor. Safety measures implemented. Will cont to monitor.
[2019-10-21 10:20] VITALS: BP 150/73
--- NOTE | 2019-10-21 10:45 | NUR ---
DR. ARELLANO AT BEDSIDE
[2019-10-21 12:00] VITALS: BP 140/73
--- NOTE | 2019-10-21 12:24 | NUR ---
PER DR ARELLANO HOLD TRANSFUSION FOR NOW AND REPEAT CBC IN 2 HRS. ORDER NOTED AND CARRIED OUT.
[2019-10-21] MEDS ORDERED: ONDANSETRON HCL/PF 4 MG/2 ML VIAL IVP PRN (12:30)
[2019-10-21] MEDS ORDERED: Z GUARD REMEDY 2 OZ OINT TP PRN (12:30)
[2019-10-21] MEDS ORDERED: ACETAMINOPHEN 650 MG/SUPP.RECT RC PRN (12:30)
[2019-10-21] MEDS ORDERED: ZOLPIDEM TARTRATE 5 MG TABLET PO PRN (12:30)
[2019-10-21 12:45] LABS: MAGNESIUM 3.2 mg/dL (1.8-2.4)
[2019-10-21] MEDS: IV NS 0.9% 1,000 ML IV PRN ×2 (12:53→21:44)
[2019-10-21] MEDS: IV D5/ 0.9% NACL 1,000 ML IV PRN ×2 (12:53→23:16)
[2019-10-21] MEDS ORDERED: CEFEPIME 2 GM in IV D5W 100 ML IV ONE (13:00)
[2019-10-21 13:01] LABS: THYROID STIMULATING HORMONE 20.809 uIU/mL (0.358-3.74)
[2019-10-21 13:09] LABS: ABG BASE EXCESS -8.4 mmol/L; ABG OXYGEN SATURATION 99.2 % (92.0-98.5); ABG PCO2 37.4 mmHg (35.0-45.0); ABG PH 7.287 (7.350-7.450); COHb 0.3 % (0.5-1.5); O2Hb 98.9 % (94.0-97.0); SITE, ABG Left Radial
--- NOTE | 2019-10-21 13:15 | NUR ---
ABG RESULTS SENT TO DR ARELLANO. PATIENT WAS CHANGED TO NC 4L.
[2019-10-21] MEDS: NITROGLYCERIN 30 GM TUBE TP SCH ×2 (13:41→21:38)
[2019-10-21] MEDS ORDERED: VANCOMYCIN 1 GM in IV D5W 250 ML IV SCH (14:00)
--- NOTE | 2019-10-21 14:31 | NUR ---
NO NEW ORDER FOR ABG RESULTS PER DR. ARELLANO.
[2019-10-21 16:00] VITALS: BP 110/55
[2019-10-21 16:32] LABS: EOSINOPHILS % (AUTO) 0.8 % (0.0-6.0); HEMOGLOBIN 10.3 g/dL (13.5-17.5); LYMPHOCYTES # (AUTO) 0.9 /CMM (0.8-4.8); MONOCYTES # (AUTO) 0.2 /CMM (0.1-1.30)
[2019-10-21 16:45] LABS: BASOPHILS % (AUTO) 0.2 % (0.0-2.0); HEMATOCRIT 32 % (39-51); LYMPHOCYTES % (AUTO) 17.2 % (20.0-44.0); MEAN CORPUSCULAR HGB CONC 32 g/dl (31.0-36.0); MEAN CORPUSCULAR VOLUME 98 fL (80-96); MONOCYTES % (AUTO) 4.4 % (2.0-12.0); NEUTROPHILS # (AUTO) 4.2 /CMM (1.8-8.9); NEUTROPHILS % (AUTO) 77.4 % (43.0-81.0); PLATELET COUNT (AUTO) 251 /CMM (150-450); RED BLOOD CELL COUNT(AUTO) 3.28 MIL/uL (4.5-6.0); WHITE BLOOD COUNT (AUTO) 5.4 K/uL (4.3-11.0)
--- NOTE | 2019-10-21 17:45 | NUR ---
informed dr. pankaj quinn came back 10.3 awaiting call back
--- NOTE | 2019-10-21 18:05 | NUR ---
SPOKE TO DR. ARELLANO HOLD OFF ON BLOOD TRANSFUSION.INFORMED LABS.
[2019-10-21 18:19] LABS: BAND % (MANUAL) 1 % (0.0-5.0); LYMPHOCYTES % (MANUAL) 20 % (16-48); MONOCYTES % (MANUAL) 6 % (0-11.0); NEUTROPHILS % (MANUAL) 73 (42-76)
--- NOTE | 2019-10-21 18:54 | NUR ---
PT IN BED ASLEEP NO SIGNS OF DISTRESS O2 SAT AT 100%. WILL ENDORSE TO FEDERAL APPELLATE LAW CLERK NURSE FOR JOANIE.
--- NOTE | 2019-10-21 19:30 | NUR ---
RN NOTE RECEIVED PT IN BED, CONFUSED, AROUSABLE TO DEEP PAIN ONLY. PATIENT IN NO S/SX OF ACUTE DISTRESS AT THIS TIME. PATIENT'S BREATHING IS EVEN AND UNLABORED. PATIENT IS ON 4 L OF OXYGEN VIA NC, SATURATING AT 100%; TOLERATING WELL. PATIENT ON TELE MONITOR READING SR AT 80'S. NOTED IV SITE AT R HAND WITH D5 NS AT 100 ML/HR, AND AT LEFT HAND WITH NS AT 125 ML/HR, BOTH PATENT AND FLUSHING WELL,NO S/S OF INFECTION OR INFILTRATION. DE LA CRUZ CATH CONNECTED TO URINE BAG IN PLACE DRAINING TO A DARK RED URINE OUTPUT. LATEST HEMOGLOBIN LEVEL IS 10.3 FROM PREVIOUS 12.4, MD AWARE. SAFETY MEASURES IMPLEMENTED PER PROTOCOL. PATIENT BED ALARM IS ON. HEAD OF BED ELEVATED. BED IS LOCKED, IN LOWEST POSITION AND SIDE RAILS UP. CALL LIGHT WITHIN REACH OF THE PATIENT. WILL CONTINUE TO MONITOR AND REASSESS FOR ANY CHANGES.
[2019-10-21 20:00] VITALS: BP 120/71
--- NOTE | 2019-10-21 20:00 | NUR ---
RN NOTED NOTED PATIENT WITH CONSISTENT SATURATION OF 100% AT 4 L SUPPLEMENTAL OXYGEN. TITRATED DOWN TO 3 L. POLICY ADVISER MADE AWARE. WILL CONT TO MONITOR
[2019-10-21 22:24] LABS: BASOPHILS % (AUTO) 0.2 % (0.0-2.0); EOSINOPHILS % (AUTO) 0.9 % (0.0-6.0); HEMATOCRIT 31 % (39-51); HEMOGLOBIN 10.3 g/dL (13.5-17.5); LYMPHOCYTES % (AUTO) 10.7 % (20.0-44.0); MEAN CORPUSCULAR HGB CONC 33 g/dl (31.0-36.0); MEAN CORPUSCULAR VOLUME 95 fL (80-96); MONOCYTES # (AUTO) 1.1 /CMM (0.1-1.30); MONOCYTES % (AUTO) 11.4 % (2.0-12.0); NEUTROPHILS # (AUTO) 7.1 /CMM (1.8-8.9); NEUTROPHILS % (AUTO) 76.8 % (43.0-81.0); PLATELET COUNT (AUTO) 208 /CMM (150-450); RED BLOOD CELL COUNT(AUTO) 3.26 MIL/uL (4.5-6.0); WHITE BLOOD COUNT (AUTO) 9.3 K/uL (4.3-11.0)
[2019-10-21 22:37] LABS: ALANINE AMINOTRANSFERASE 23 U/L (12-78); ALBUMIN 2.2 g/dL (3.4-5.0); ALKALINE PHOSPHATASE 100 U/L (46-116); ASPARTATE AMINOTRANSFERASE 15 U/L (15-37); BILIRUBIN,TOTAL 0.3 mg/dL (0.2-1.0); CALCIUM, SERUM 8.2 mg/dL (8.5-10.1); CARBON DIOXIDE 19 mmol/L (21-32); CHLORIDE 119 mmol/L (98-107); CREATININE 3.8 mg/dL (0.6-1.3); GLUCOSE 120 mg/dL (74-106); MAGNESIUM 2.5 mg/dL (1.8-2.4); PHOSPHORUS 3.6 mg/dL (2.5-4.9); POTASSIUM 4.7 mmol/L (3.5-5.1); SODIUM SERUM 148 mmol/L (136-145); TOTAL PROTEIN, SERUM 5.8 g/dL (6.4-8.2)
[2019-10-21 22:44] LABS: UREA NITROGEN, BLOOD 105 mg/dL (7-18)
[2019-10-22] VITALS: BP 129/63
--- NOTE | 2019-10-22 01:45 | NUR ---
RN NOTE NOTED NEGATIVE RESULT OF COVID19 PCR BY INSULATION APPLICATOR.
[2019-10-22 04:00] VITALS: BP 122/73
[2019-10-22 07:14] LABS: BASOPHILS % (AUTO) 0.1 % (0.0-2.0); EOSINOPHILS % (AUTO) 2.3 % (0.0-6.0); HEMATOCRIT 29 % (39-51); HEMOGLOBIN 9.6 g/dL (13.5-17.5); LYMPHOCYTES # (AUTO) 1.2 /CMM (0.8-4.8); LYMPHOCYTES % (AUTO) 13.8 % (20.0-44.0); MEAN CORPUSCULAR HGB CONC 33 g/dl (31.0-36.0); MEAN CORPUSCULAR VOLUME 96 fL (80-96); MONOCYTES # (AUTO) 0.8 /CMM (0.1-1.30); NEUTROPHILS # (AUTO) 6.2 /CMM (1.8-8.9); NEUTROPHILS % (AUTO) 73.8 % (43.0-81.0); PLATELET COUNT (AUTO) 219 /CMM (150-450); RED BLOOD CELL COUNT(AUTO) 3.05 MIL/uL (4.5-6.0); WHITE BLOOD COUNT (AUTO) 8.4 K/uL (4.3-11.0)
--- NOTE | 2019-10-22 07:15 | NUR ---
RN NOTE PATIENT REMAINS IN ROOM. NO SIGNS OF RESPIRATORY DISTRESS. FACILA GRIMACING NOTED AT 0600, PRN TYLENOL 650 MG SUPPOSITORY ADMINISTERED ORDERED. SUPPLEMENTAL OXYGEN TITRATED DOWN TO 2LPM, PATIENT TOLERATING WELL SATURATING AT 100%. SAFETY MEASURES IMPLEMENTED, BED IN LOWEST POSITION, LOCKED, SIDE RAILS UP, CALL LIGHT WITHIN REACH. ALL NEEDS AND ORDERS ADDRESSED DURING THE SHIFT. ALL DUE MEDS GIVEN ORDERED & SCHEDULED ; PATIENT TOLERATED WELL.PATIENT KEPT CLEAN AND COMFORTABLE. ENDORSED TO AM SHIFT RN FOR CONTINUITY OF CARE.
[2019-10-22 07:55] LABS: IRON, SERUM 27 ug/dl (50-175); TOTAL IRON BINDING CAPACITY 134 ug/dl (250-450)
[2019-10-22 08:00] VITALS: BP 140/78
[2019-10-22 08:01] LABS: ALANINE AMINOTRANSFERASE 22 U/L (12-78); ALBUMIN 2.2 g/dL (3.4-5.0); ALKALINE PHOSPHATASE 94 U/L (46-116); ASPARTATE AMINOTRANSFERASE 16 U/L (15-37); BILIRUBIN,DIRECT 0.1 mg/dL (0.0-0.2); BILIRUBIN,TOTAL 0.3 mg/dL (0.2-1.0); CALCIUM, SERUM 8.2 mg/dL (8.5-10.1); CARBON DIOXIDE 17 mmol/L (21-32); CHLORIDE 121 mmol/L (98-107); CREATININE 3.2 mg/dL (0.6-1.3); GLUCOSE 87 mg/dL (74-106); MAGNESIUM 2.5 mg/dL (1.8-2.4); PHOSPHORUS 3.3 mg/dL (2.5-4.9); POTASSIUM 4.4 mmol/L (3.5-5.1); SODIUM SERUM 150 mmol/L (136-145); TOTAL PROTEIN, SERUM 5.8 g/dL (6.4-8.2)
[2019-10-22 08:03] LABS: CHOLESTEROL 114 mg/dL (<200); CREATINE KINASE, TOTAL 75 U/L (39-308); HDL CHOLESTEROL 32 mg/dL (40-60); LDL 66 mg/dL (0-99); THYROID STIMULATING HORMONE 6.045 uIU/mL (0.358-3.74); TRIGLYCERIDES 131 mg/dL (30-150)
[2019-10-22 08:06] LABS: UREA NITROGEN, BLOOD 91 mg/dL (7-18)
[2019-10-22] MEDS: PANTOPRAZOLE 40 MG VIAL IV SCH (08:24)
[2019-10-22] MEDS: NITROGLYCERIN 30 GM TUBE TP SCH ×2 (08:24→21:53)
[2019-10-22] MEDS: IV D5/ 0.9% NACL 1,000 ML IV PRN (09:26)
[2019-10-22] MEDS ORDERED: IV D5/0.45 NACL 1,000 ML IV PRN (09:36)
--- NOTE | 2019-10-22 10:00 | NUR ---
RN NOTE PATIENT TRANSFERRED TO [facility] USING ACLS PROTOCOL PER DR PRINCE ORDER. PATIENT IS NEGATIVE FOR COVID. IN STABLE CONDITION, ALL SCHEDULED MEDICATIONS GIVEN ON TIME.SAFETY WAS MAINTAINED, CALL LIGHT WITHIN REACH, ENDORSED TO GAURANG FOR CONTINUITY OF CARE.
--- NOTE | 2019-10-22 10:10 | NUR ---
CATTLE DEHORNER NOTE PATIENT ARRIVED FROM [place] BY BED. PATIENT RESTING COMFORTABLY IN BED. PATIENT IN NO ACUTE DISTRESS. NO SOB NOTED. PATIENT BREATHING IS EVEN AND UNLABORED. PATIENT BREATHING ON 2L NC SATURATING >95% SPO2. PATIENT ON CARDIAC MONITORING READING SINUS RHYTHM HR 81. PATIENT BED IS LOCKED AND IN LOWEST POSITIONS. SAFETY PRECAUTIONS IN PLACE. HOB IS ELEVATED. BED ALARM IS ON. CALL LIGHT WITHIN REACH. WILL CONTINUE TO MONITOR.
[2019-10-22] MEDS: CEFEPIME 1 GM in IV D5W 50 ML IV SCH (13:09)
--- NOTE | 2019-10-22 15:08 | NUR ---
DIRECTOR OF COLLECTIONS AND ARCHIVES NOTE DISCUSSED WITH DR. ARELLANO REGARDING PATIENT HISTORY OF DM. MD ORDER FOR MILD SLIDING SCALE ACHS SET.
[2019-10-22] MEDS ORDERED: DEXTROSE 50%-WATER 50 ML DISP.SYRIN IV PRN (15:30)
--- NOTE | 2019-10-22 16:08 | NUR ---
SURVEILLANCE ANALYST NOTE PERFORMED NURSING SWALLOW EVALUATION REQUESTED BY ALEXIS SPEECH THERAPIST MOLD CLOSER HELPER. PATIENT CAN NOT FOLLOW APPROPRIATE COMMANDS AND UNABLE TO COMPREHEND. DR. ARELLANO IS AWARE SWALLOW EVAL WAS ORDERED AND THAT SYLVESTER SPEECH THERAPIST WILL SEE PATIENT TOMORROW.
--- NOTE | 2019-10-22 17:19 | NUR ---
PIT HAND NOTE PATIENT BLOOD SUGAR WAS 60 RECHECKED AND WAS 64. PATIENT ALREADY ON D5 1/2 NS IV FLUIDS. INFORMED CHARGE NURSE MARY. PER CHARGE JUST CONTINUE TO MONITOR.
[2019-10-22] MEDS: BLOOD SUGAR DIAGNOSTIC 1 EACH STRIP IN SCH ×2 (17:20→21:55)
[2019-10-22 18:11] VITALS: BP 126/70
--- NOTE | 2019-10-22 18:50 | NUR ---
DATA REDUCTION TECHNICIAN CLOSING NOTE PATIENT RESTING COMFORTABLY IN BED. PATIENT IN NO ACUTE DISTRESS. NO SOB NOTED. PATIENT BREATHING IS EVEN AND UNLABORED. PATIENT BREATHING ON 2L NC SATURATING >95% SPO2. PATIENT ON CARDIAC MONITORING READING SINUS RHYTHM HR 87. PATIENT BLOOD SUGAR WAS RECHECKED AND PATIENT BLOOD SUGAR IS 93 AND PATIENT CURRENTLY WITH D5 1/2 NS GOING AT 100ML/HR. IV PATENT AND INTACT. PATIENT BED IS LOCKED AND IN LOWEST POSITIONS. SAFETY PRECAUTIONS IN PLACE. HOB IS ELEVATED. BED ALARM IS ON. CALL LIGHT WITHIN REACH. WILL ENDORSE CARE TO PM SHIFT FOR JOANIE.
--- NOTE | 2019-10-22 19:57 | NUR ---
SMOOTH AND BURR WORKER COMPOSITES OPENING NOTE: Patient in bed resting comfortably. Patient is non-verbal. On 2L nasal canula, in no apparent respiratory distress. No SOB noted. Breathing is equal and unlabored. Patient on cardiac monitoring, SR with HR 80. IV access on left hand, 20g, patent, no redness, or infiltration. Noted Gilmore catheter, draining well. SCD are on. Safety precaution is in pace, bed is in the lowest level, bed is locked, alarm is on, side rails x2 are up, and call light is within reach. Will continue to monitor.
[2019-10-22 20:00] VITALS: BP 126/47
[2019-10-22 20:15] VITALS: BP 126/47
[2019-10-22] MEDS: INSULIN REGULAR, HUMAN 100 UNIT/ML 3 ML VIAL SQ PRN (22:06)
--- NOTE | 2019-10-22 22:07 | NUR ---
TURNTABLE MAN NOTE: Patient glucose 97. Non administered insulin per sliding scale to prevent hypoglycemic event.
[2019-10-23 04:00] VITALS: BP 128/57
[2019-10-23 05:08] LABS: PTH, INTACT 130 pg/mL (15-65)
--- NOTE | 2019-10-23 06:41 | NUR ---
Patient's initial 0730 glucose 66. Recheck resulted in glucose 68. Patient NPO and needs swallow eval. Administer D50 to prevent any further hypoglycemia and increase blood sugar. Will continue to monitor and endorse to morning shift.
--- NOTE | 2019-10-23 07:11 | NUR ---
SULKY DRIVER NOTE: Rechecked patient glucose. Glucose 189. Will endorse to next shift.
--- NOTE | 2019-10-23 07:13 | NUR ---
FUEL HOUSE ATTENDANT CLOSING NOTE: Patient in bed, awake. Opens eyes but non-verbal. No SOB or respiratory distress noted. Safety precaution in place, bed in the lowest level, bed is locked, alarm is on, side rails x2 are up, and call light is within reach. Will endorse to next shift.
[2019-10-23] MEDS: BLOOD SUGAR DIAGNOSTIC 1 EACH STRIP IN SCH ×4 (07:15→21:59)
[2019-10-23 07:34] LABS: BASOPHILS % (AUTO) 0.2 % (0.0-2.0); EOSINOPHILS % (AUTO) 3.7 % (0.0-6.0); HEMATOCRIT 26 % (39-51); HEMOGLOBIN 8.6 g/dL (13.5-17.5); LYMPHOCYTES # (AUTO) 0.8 /CMM (0.8-4.8); LYMPHOCYTES % (AUTO) 13.7 % (20.0-44.0); MEAN CORPUSCULAR HGB CONC 33 g/dl (31.0-36.0); MEAN CORPUSCULAR VOLUME 95 fL (80-96); MONOCYTES # (AUTO) 0.7 /CMM (0.1-1.30); MONOCYTES % (AUTO) 11.6 % (2.0-12.0); NEUTROPHILS # (AUTO) 4.1 /CMM (1.8-8.9); NEUTROPHILS % (AUTO) 70.8 % (43.0-81.0); PLATELET COUNT (AUTO) 184 /CMM (150-450); RED BLOOD CELL COUNT(AUTO) 2.75 MIL/uL (4.5-6.0); WHITE BLOOD COUNT (AUTO) 5.8 K/uL (4.3-11.0)
[2019-10-23 07:54] LABS: ALANINE AMINOTRANSFERASE 18 U/L (12-78); ALBUMIN 2.1 g/dL (3.4-5.0); ALKALINE PHOSPHATASE 96 U/L (46-116); ASPARTATE AMINOTRANSFERASE 16 U/L (15-37); BILIRUBIN,TOTAL 0.5 mg/dL (0.2-1.0); CALCIUM, SERUM 8.6 mg/dL (8.5-10.1); CARBON DIOXIDE 17 mmol/L (21-32); CHLORIDE 121 mmol/L (98-107); CREATININE 2.7 mg/dL (0.6-1.3); GLUCOSE 256 mg/dL (74-106); MAGNESIUM 2.3 mg/dL (1.8-2.4); PHOSPHORUS 2.9 mg/dL (2.5-4.9); SODIUM SERUM 149 mmol/L (136-145); TOTAL PROTEIN, SERUM 5.7 g/dL (6.4-8.2); UREA NITROGEN, BLOOD 70 mg/dL (7-18)
--- NOTE | 2019-10-23 08:00 | NUR ---
3D MODELER OPENING NOTES Received Patient resting in bed. Non-verbal. VS stable with no acute distress. Breathing even and unlabored on room air with no respiratory distress. Denies pain. No signs and symptoms of pain. Telemonitor in place and patent reading SR with HR-82. 20g PIV on left hand clean, intact, patent and flushing well with D51/2 NS infusing at 100ml/hr. Gilmore Cath in place and patent. Safety precautions in place. Bed locked and set to lowest position with side rails x 2 up. All needs rendered at this time. Call light within reach. Will continue to monitor.
[2019-10-23 08:20] VITALS: BP 133/67
--- NOTE | 2019-10-23 09:58 | NUR ---
WOUND CARE CONSULT: PT PRESENTS WITH DISCOLORATION TO LOWER LEGS AND FEET WELL REDNESS TO PERINEUM, PRESENT ON ADMISSION. PT BECOMES AGITATED AND COMBATIVE AT TIMES. RECOMMENDATIONS MADE FOR SKIN PROTECTION. DISCUSSED WITH NURSING STAFF. WILL SEE PRN. MCFARLAND IN AGREEMENT WITH PLAN OF CARE. Addendum: 10/23/19 at 1000 by DENIA MERRITT WNDNU Amended: Links added.
[2019-10-23] MEDS: PANTOPRAZOLE 40 MG VIAL IV SCH (10:09)
[2019-10-23] MEDS: NITROGLYCERIN 30 GM TUBE TP SCH ×2 (10:13→21:16)
[2019-10-23] MEDS: INSULIN REGULAR, HUMAN 100 UNIT/ML 3 ML VIAL SQ PRN ×3 (12:03→22:01)
[2019-10-23] MEDS: CEFEPIME 1 GM in IV D5W 50 ML IV SCH (12:09)
[2019-10-23 14:08] LABS: *SPE A/G RATIO 0.9 (0.7-1.7); *SPE ALBUMIN 2.5 g/dL (2.9-4.4); *SPE ALPHA-1-GLOBULIN 0.3 g/dL (0.0-0.4); *SPE ALPHA-2-GLOBULIN 0.8 g/dL (0.4-1.0); *SPE BETA GLOBULIN 0.8 g/dL (0.7-1.3); *SPE GLOBULIN, TOTAL 2.7 g/dL (2.2-3.9); *SPE M-SPIKE Not Observed g/dL (Not Observed); *SPEGAMMA GLOBULIN 0.9 g/dL (0.4-1.8)
[2019-10-23] MEDS: VANCOMYCIN 1 GM in IV D5W 250 ML IV SCH (15:28)
[2019-10-23 17:31] VITALS: BP_SYST 133; BP_SYST 173; BP_DIAS 63; BP_DIAS 79
[2019-10-23] MEDS: CLOTRIMAZOLE 1% 15 GM TUBE TP SCH (17:34)
--- NOTE | 2019-10-23 19:34 | NUR ---
MS RN OPENING NOTES Patient resting in bed. Non-verbal. VS stable with no acute distress. Breathing even and unlabored on 2LPM via NC with no respiratory distress. Denies pain. No signs and symptoms of pain. 22g PIV on right hand intact, patent and flushing well with D51/2 NS infusing at 100ml/hr. Gilmore Cath in place and patent. Safety precautions in place. Bed locked and set to lowest position with side rails x 2 up. All needs rendered at this time. Call light within reach. Will endorse plan of care to oncoming shift. Addendum: 10/23/19 at 1937 by BARNEY PECK RN MS GUEVARA CLOSING NOTES
--- NOTE | 2019-10-23 19:45 | NUR ---
MS RN NOTE: Noted patient pulling on his IV access. Educated patient regarding not pulling his IV site. Reoriented patient to use the call light when in need assistance. Patient still kept pulling on IV site. Informed [facility] Catrachita MCFARLAND, and ordered bilateral soft restraints. Read order back and carried order out.
--- NOTE | 2019-10-23 19:45 | NUR ---
MS RN OPENING NOTE: Patient in bed sleeping comfortably but easily aroused through touch. Patient is nonverbal. Patient is on 2L nasal canula. Patient tolerating O2. No respiratory distress noted, no SOB, breathing even and unlabored. Patient does not appear to be in acute pain or discomfort. Noted bilateral soft restraints. Pulse present on bilateral upper extremity, +2, cap refill <3 seconds. No signs of bruising or swelling. IV access on right hand 22g, flushes well, patent, no redness or infiltration. Gilmore cath in place, patent, and draining tea colored output. Safety precaution is in place, bed is locked, bed is in the lowest level, side rails x2 are up, alarm is on, and call light is within reach. Will continue to monitor.
[2019-10-23 20:00] VITALS: BP 145/89
[2019-10-24 06:24] LABS: BASOPHILS % (AUTO) 0.3 % (0.0-2.0); EOSINOPHILS % (AUTO) 4.3 % (0.0-6.0); HEMATOCRIT 29 % (39-51); HEMOGLOBIN 9.5 g/dL (13.5-17.5); LYMPHOCYTES # (AUTO) 1.1 /CMM (0.8-4.8); LYMPHOCYTES % (AUTO) 18.8 % (20.0-44.0); MEAN CORPUSCULAR HGB CONC 33 g/dl (31.0-36.0); MEAN CORPUSCULAR VOLUME 97 fL (80-96); MONOCYTES # (AUTO) 0.8 /CMM (0.1-1.30); MONOCYTES % (AUTO) 14.1 % (2.0-12.0); NEUTROPHILS # (AUTO) 3.7 /CMM (1.8-8.9); NEUTROPHILS % (AUTO) 62.5 % (43.0-81.0); PLATELET COUNT (AUTO) 200 /CMM (150-450); RED BLOOD CELL COUNT(AUTO) 3.02 MIL/uL (4.5-6.0); WHITE BLOOD COUNT (AUTO) 5.9 K/uL (4.3-11.0)
[2019-10-24] MEDS: BLOOD SUGAR DIAGNOSTIC 1 EACH STRIP IN SCH ×4 (06:38→22:25)
[2019-10-24] MEDS: INSULIN REGULAR, HUMAN 100 UNIT/ML 3 ML VIAL SQ PRN ×3 (06:39→22:27)
--- NOTE | 2019-10-24 06:39 | NUR ---
MS RN NOTE: Patient glucose 123. Hold insulin per sliding scale.
--- NOTE | 2019-10-24 06:40 | NUR ---
MS RN CLOSING NOTE: Patient in in bed awake, patient is unable to make needs known. Patient is nonverbal. No respiratory distress noted, no SOB, breathing even and unlabored. Patient does not appear to be in acute pain or discomfort. Bilateral soft restraints assessed every 15 minutes. Pulse present on bilateral upper extremity, +2, cap refill <3 seconds. Safety precaution is in place, bed is locked, bed is in the lowest level, side rails x2 are up, alarm is on, and call light is within reach. Will continue to monitor.
[2019-10-24 07:20] LABS: ALANINE AMINOTRANSFERASE 19 U/L (12-78); ALBUMIN 2.5 g/dL (3.4-5.0); ALKALINE PHOSPHATASE 114 U/L (46-116); ASPARTATE AMINOTRANSFERASE 17 U/L (15-37); BILIRUBIN,TOTAL 0.7 mg/dL (0.2-1.0); CALCIUM, SERUM 9.4 mg/dL (8.5-10.1); CARBON DIOXIDE 17 mmol/L (21-32); CHLORIDE 122 mmol/L (98-107); CREATININE 2.8 mg/dL (0.6-1.3); GLUCOSE 119 mg/dL (74-106); MAGNESIUM 2.5 mg/dL (1.8-2.4); PHOSPHORUS 2.8 mg/dL (2.5-4.9); POTASSIUM 4.6 mmol/L (3.5-5.1); SODIUM SERUM 153 mmol/L (136-145); TOTAL PROTEIN, SERUM 6.9 g/dL (6.4-8.2); UREA NITROGEN, BLOOD 65 mg/dL (7-18)
[2019-10-24 08:00] VITALS: BP 158/86
--- NOTE | 2019-10-24 08:00 | NUR ---
MS RN OPENING NOTES Received Patient resting in bed. Non-verbal. VS stable with no acute distress. Breathing even and unlabored on 2LPM via NC with no respiratory distress. Denies pain. No signs and symptoms of pain. 22g PIV on right hand intact, patent and flushing well with D51/2 NS infusing at 100ml/hr. Gilmore Cath in place and patent. Safety precautions in place. Bed locked and set to lowest position with side rails x 2 up. All needs rendered at this time. Call light within reach. Will continue to monitor.
[2019-10-24] MEDS: PANTOPRAZOLE 40 MG VIAL IV SCH (08:58)
[2019-10-24] MEDS: CLOTRIMAZOLE 1% 15 GM TUBE TP SCH ×2 (08:59→18:26)
[2019-10-24] MEDS: NITROGLYCERIN 30 GM TUBE TP SCH ×2 (09:00→22:29)
[2019-10-24] MEDS: hydrALAZINE HCL 50 MG TABLET PO SCH ×3 (10:36→18:26)
[2019-10-24] MEDS: IV D5W 1,000 ML IV PRN (10:36)
[2019-10-24] MEDS: CEFEPIME 1 GM in IV D5W 50 ML IV SCH (12:47)
--- NOTE | 2019-10-24 15:00 | NUR ---
MS RN NOTES Renewed Gilmore Cath at this time. Noted two urethras on penis. Per Susie EMERSON, reinserted Gilmore from the same site. Patient tolerated well. Noted brown output and then clear yellow output.
[2019-10-24 16:00] VITALS: BP 111/50
--- NOTE | 2019-10-24 19:52 | NUR ---
MS RN CLOSING NOTES Patient resting in bed. Non-verbal. VS stable with no acute distress. Breathing even and unlabored on 2LPM via NC with no respiratory distress. Denies pain. No signs and symptoms of pain. 22g PIV on right hand intact. Gilmore Cath in place and patent. Safety precautions in place. Bed locked and set to lowest position with side rails x 2 up. All needs rendered at this time. Call light within reach. Will endorse plan of care to oncoming shift.
[2019-10-24 20:00] VITALS: BP 103/56
--- NOTE | 2019-10-24 20:00 | NUR ---
RN NOTES CONFUSED, 2LPM VIA NC, NOT IN APPARENT DISTRESS, NO IV LINE, D5 1/2 NS AT 100 ML/HR, BUE ECCHYMOSIS, DE LA CRUZ CATHETER DRAINING WITH BEVERLY COLORED URINE, BILATERAL RESTRAINTS RENEWED, PATIENT COMBATIVE, FOLLOWING RESTRAINT MONITORING PROTOCOL, KEPT SAFE, WILL CONTINUE TO MONITOR.
--- NOTE | 2019-10-25 02:23 | NUR ---
RN NOTES VANCO TROUGH 16, PER PHARMACY CONTINUE SAME DOSE OF VANCO 1 GRAM
[2019-10-25] MEDS: VANCOMYCIN 1 GM in IV D5W 250 ML IV SCH (02:31)
[2019-10-25 06:13] LABS: BASOPHILS % (AUTO) 0.3 % (0.0-2.0); EOSINOPHILS % (AUTO) 4.9 % (0.0-6.0); HEMATOCRIT 28 % (39-51); HEMOGLOBIN 9.4 g/dL (13.5-17.5); LYMPHOCYTES % (AUTO) 19.5 % (20.0-44.0); MEAN CORPUSCULAR HGB CONC 33 g/dl (31.0-36.0); MEAN CORPUSCULAR VOLUME 95 fL (80-96); MONOCYTES # (AUTO) 0.7 /CMM (0.1-1.30); MONOCYTES % (AUTO) 12.4 % (2.0-12.0); NEUTROPHILS # (AUTO) 3.3 /CMM (1.8-8.9); NEUTROPHILS % (AUTO) 62.9 % (43.0-81.0); PLATELET COUNT (AUTO) 199 /CMM (150-450); RED BLOOD CELL COUNT(AUTO) 2.96 MIL/uL (4.5-6.0); WHITE BLOOD COUNT (AUTO) 5.3 K/uL (4.3-11.0)
[2019-10-25 06:34] LABS: ALANINE AMINOTRANSFERASE 17 U/L (12-78); ALBUMIN 2.4 g/dL (3.4-5.0); ALKALINE PHOSPHATASE 122 U/L (46-116); ASPARTATE AMINOTRANSFERASE 14 U/L (15-37); BILIRUBIN,TOTAL 0.4 mg/dL (0.2-1.0); CARBON DIOXIDE 17 mmol/L (21-32); CHLORIDE 117 mmol/L (98-107); CREATININE 2.7 mg/dL (0.6-1.3); GLUCOSE 241 mg/dL (74-106); MAGNESIUM 2.3 mg/dL (1.8-2.4); PHOSPHORUS 2.6 mg/dL (2.5-4.9); POTASSIUM 4.4 mmol/L (3.5-5.1); SODIUM SERUM 148 mmol/L (136-145); TOTAL PROTEIN, SERUM 6.9 g/dL (6.4-8.2); UREA NITROGEN, BLOOD 54 mg/dL (7-18)
[2019-10-25] MEDS: BLOOD SUGAR DIAGNOSTIC 1 EACH STRIP IN SCH ×4 (06:36→21:57)
[2019-10-25] MEDS: INSULIN REGULAR, HUMAN 100 UNIT/ML 3 ML VIAL SQ PRN ×4 (06:41→21:58)
--- NOTE | 2019-10-25 06:48 | NUR ---
AWAKE, CONFUSED, 2LPM VIA NC, RESTLESS, BILATERAL WRIST RESTRAINTS, BUE DISCOLORATION, PUREED DIET, VANCO TROUGH 16, GIVEN SAME DOSE OF VANCO 1 GRAM, MAY NEED MIDLINE FOR IVF AND IV ABX, DE LA CRUZ CATHETER DRAINING WITH TEA COLORED URINE, NO BLOODY STOOL, BM X2, CONTINUE HOSPITALIZTION, VANCO AND MAXIPIME
--- NOTE | 2019-10-25 07:54 | NUR ---
M/S RN OPENING NOTES RECEIVED PT ON BED, A/OX1, RESPOND TO NAME WHEN CALLED, MUMBLE SOUND WITH SLURRED SPEECH. RESPIRATION EVEN AND NON LABORED WITH NO ACUTE RESPIRATORY DISTRESS. PT WITH BILATERAL WRIST RESTRAINT/SITTER DUE TO EPISODES OF COMBATIVENESS, PULLING IV AND TUBES, FOR SAFETY PRECAUTION. ABD SOFT AND NON DISTENDED WITH ACTIVE BOWEL SOUNDS. NO S/SX OF PAIN AND DISCOMFORT. SKIN WARM TO TOUCH AND DRY. IV SITE AT LEFT FA, PATENT IN FLUSHING, IV RUNNING D5W AT 100 ML/HR. CONTINUE TO PROVIDE SAFETY ENVIRONMENT, BED IN LOW LOCKED POSITION, SRX2 UP FOR SAFETY. WILL CONTINUE TO MONITOR CARE.
--- NOTE | 2019-10-25 07:56 | NUR ---
M/S RN NOTES PT WITH DC OUTPUT OF TEA COLOR URINE. REPORTED BM X3 WITHOUT PRESENCE OF BLOOD.
[2019-10-25 08:00] VITALS: BP 107/68
[2019-10-25] MEDS: PANTOPRAZOLE 40 MG VIAL IV SCH (08:59)
[2019-10-25] MEDS: hydrALAZINE HCL 50 MG TABLET PO SCH ×3 (08:59→16:49)
[2019-10-25] MEDS: NITROGLYCERIN 30 GM TUBE TP SCH ×2 (08:59→21:51)
[2019-10-25] MEDS: CLOTRIMAZOLE 1% 15 GM TUBE TP SCH ×2 (09:00→16:50)
[2019-10-25] MEDS ORDERED: CEFTRIAXONE 1 G in IV D5W 50 ML IV SCH (10:00)
--- NOTE | 2019-10-25 10:15 | NUR ---
M/S RN NOTES PT EYES CLOSED, RESPONSIVE TO TACTILE STIMULI, AROUSABLE. TURNED POSITION. PT STILL SLEEPY, ON COMFORTABLE POSITION. ON 1:1 SITTER CONTINUE TO MONITOR.
[2019-10-25] MEDS: IV D5W 1,000 ML IV PRN (11:02)
--- NOTE | 2019-10-25 13:30 | NUR ---
M/S RN NOTES PT BM X1 ON TOILET WITH ASSISTANCE. MORE AWARE, RESPONSIVE AT THIS TIME. TALKING, A/OX1 TO NAME ONLY. PROVIDED LUNCH, TOLERATED MECHANICAL SOFT . PLACED IN COMFORTABLE POSITION, ON O2 AT 2LPM VIA N/C, HOB ELEVATED AT ALL TIMES. CONTINUE TO MONITOR
[2019-10-25 16:00] VITALS: BP 145/75
[2019-10-25] MEDS: CEFEPIME 1 GM in IV D5W 50 ML IV SCH (16:53)
--- NOTE | 2019-10-25 18:49 | NUR ---
M/S RN CLOSING NOTES PT A/OX1, NAME ONLY, CONFUSED. PT HAS NO PRESENCE OF ACUTE RESPIRATORY DISTRESS, ON O2 AT 2LPM VIA N/C NEEDED, HOB ELEVATED AT ALL TIMES. ABD SOFT AND NON DISTENDED WITH ACTIVE BOWEL SOUNDS, BM TODAY. SKIN WARM TO TOUCH AND DRY, NO NEW OPEN KIN BREAKDOWN. FLACC-0. IV SITE AT LEFT FA PATENT IN FLUSHING RUNNING D5W AT 100 ML/HR. BED IN LOW LOCKED POSITION, SRX2 UP FOR SAFETY. ON 1:1 SITTER DUE TO COMBATIVE BEHAVIOR. ENDORSED CARE TO NEXT SHIFT.
--- NOTE | 2019-10-25 19:10 | NUR ---
RN MS OPENING NOTES RECEIVED PATIENT IN BED SLEEPING EASILY AROUSABLE, ON 2 L VIA NC RESPIRATIONS EVEN AND UNLABORED WITH EQUAL RISE AND FALL OF CHEST, ON SOFT WRIST RESTRAINTS PATIENT REMOVES MEDICAL TUBING, SKIN CHECKS DOWN, WNL PULSES PALPABLE. CIRCULATION CHECKS DONE, DE LA CRUZ CATHETER IN PLACE NOTED NOTED TEA COLOR WITH SOME SEDIMENTS, LEFT FA # 22 G IV SITE INTACT AND PATENT, ORIENTED TO STAFF AND CALL LIGHT AND KEPT WITHIN REACH, SAFETY PRECAUTIONS IN PLACE, LOW BED AND LOCKED, BED ALARM IN PLACE, NOTED RIGHT ARM RED AND SWELLING PER REPORT PT HAD AN OLD IV SITE TO RUE. RUE ELEVATED WILL CONTINUE TO MONITOR AND ATTEND TO NEEDS.
[2019-10-25 20:00] VITALS: BP 157/54
[2019-10-25] MEDS ORDERED: IPRATROPIUM NEB FS 0.5 MG/2.5 ML AMPUL.NEB NEB PRN ×2 (20:30→20:39)
[2019-10-25] MEDS: ALBUTEROL FS 2.5 MG/3 ML VIAL.NEB NEB PRN (20:31)
--- NOTE | 2019-10-25 20:40 | NUR ---
RN MS NOTES NOTED WHEEZING VS WNL O2 SAT 96% ON 2 L VIA NC. MADE AWARE ,WITH NEW ORDER FOR DUONEB Q4HR PRN, RT MADE AWARE AT BEDSIDE.ALSO MADE AWARE OR RIGHT ARM REDNESS, SWELLING AND FEELS WARM TO TOUCH, WITH NEW RECOMMENDATION APPLY WARM COMPRESSES AND F/UP WITH AM MD FOR POSSIBLE US IF NOT IMPROVED.
[2019-10-26] MEDS: INSULIN REGULAR, HUMAN 100 UNIT/ML 3 ML VIAL SQ PRN ×4 (06:13→21:27)
[2019-10-26] MEDS: BLOOD SUGAR DIAGNOSTIC 1 EACH STRIP IN SCH ×4 (06:13→21:25)
[2019-10-26 06:59] LABS: BASOPHILS % (AUTO) 0.3 % (0.0-2.0); EOSINOPHILS % (AUTO) 4.7 % (0.0-6.0); HEMATOCRIT 26 % (39-51); HEMOGLOBIN 8.5 g/dL (13.5-17.5); LYMPHOCYTES # (AUTO) 0.9 /CMM (0.8-4.8); LYMPHOCYTES % (AUTO) 17.1 % (20.0-44.0); MEAN CORPUSCULAR HGB CONC 33 g/dl (31.0-36.0); MEAN CORPUSCULAR VOLUME 97 fL (80-96); MONOCYTES # (AUTO) 0.7 /CMM (0.1-1.30); MONOCYTES % (AUTO) 12.5 % (2.0-12.0); NEUTROPHILS # (AUTO) 3.5 /CMM (1.8-8.9); NEUTROPHILS % (AUTO) 65.4 % (43.0-81.0); PLATELET COUNT (AUTO) 181 /CMM (150-450); RED BLOOD CELL COUNT(AUTO) 2.68 MIL/uL (4.5-6.0); WHITE BLOOD COUNT (AUTO) 5.4 K/uL (4.3-11.0)
[2019-10-26 07:06] LABS: ALANINE AMINOTRANSFERASE 13 U/L (12-78); ALBUMIN 2.3 g/dL (3.4-5.0); ALKALINE PHOSPHATASE 110 U/L (46-116); ASPARTATE AMINOTRANSFERASE 12 U/L (15-37); BILIRUBIN,TOTAL 0.3 mg/dL (0.2-1.0); CALCIUM, SERUM 8.4 mg/dL (8.5-10.1); CARBON DIOXIDE 20 mmol/L (21-32); CHLORIDE 114 mmol/L (98-107); CREATININE 2.6 mg/dL (0.6-1.3); GLUCOSE 183 mg/dL (74-106); MAGNESIUM 2.2 mg/dL (1.8-2.4); PHOSPHORUS 2.6 mg/dL (2.5-4.9); POTASSIUM 3.8 mmol/L (3.5-5.1); SODIUM SERUM 144 mmol/L (136-145); TOTAL PROTEIN, SERUM 6.6 g/dL (6.4-8.2); UREA NITROGEN, BLOOD 46 mg/dL (7-18)
--- NOTE | 2019-10-26 07:06 | NUR ---
RN MS CLOSING NOTES PATIENT IN BED SLEEPING EASILY AROUSABLE, ON 2 L VIA NC RESPIRATIONS EVEN AND UNLABORED WITH EQUAL RISE AND FALL OF CHEST, DUONEB WAS EFFECTIVE,ON SOFT WRIST RESTRAINTS PATIENT REMOVES MEDICAL TUBING, SKIN CHECKS DOWN, WNL PULSES PALPABLE. CIRCULATION CHECKS DONE, DE [place] CRUZ CATHETER IN PLACE NOTED WITH TEA COLOR WITH SOME SEDIMENTS, TOTAL OUTPUT 450CC, LEFT FA # 22 G IV SITE INTACT AND PATENT IVF RUNNING ORDERED, CALL LIGHT KEPT WITHIN REACH, SAFETY PRECAUTIONS IN PLACE, LOW BED AND LOCKED, BED ALARM IN PLACE, NOTED RIGHT ARM STILL NOTED WITH RED AND SWELLING APPLIED WARM COMPRESSES RECOMMENDED PER MD RECOMMENDATION,PER REPORT PT HAD AN OLD IV SITE TO RUE. RUE ELEVATED WILL CONTINUE TO MONITOR AND ATTEND TO NEEDS FLUIDS OFFERED, ALL NEEDS ATTENDED,REMAINS COMFORTABLE WILL CONTINUE TO MONITOR AND ENDORSE TO NEXT SHIFT.
--- NOTE | 2019-10-26 07:52 | NUR ---
MS/RN OPENING NOTES RECEIVED PATIENT ON BED. ALERT AND ORIENTED X1. PATIENT SIGN AND SYMPTOM OF PAIN AT THIS TIME. PATIENT IN NO RESPIRATORY DISTRESS NOTED. WILL CONTINUE TO MONITOR.
[2019-10-26 08:00] VITALS: BP 147/60
[2019-10-26] MEDS: PANTOPRAZOLE 40 MG VIAL IV SCH (09:10)
[2019-10-26] MEDS: hydrALAZINE HCL 50 MG TABLET PO SCH ×3 (09:10→16:59)
[2019-10-26] MEDS: NITROGLYCERIN 30 GM TUBE TP SCH ×2 (09:11→21:21)
[2019-10-26] MEDS: CLOTRIMAZOLE 1% 15 GM TUBE TP SCH ×2 (09:11→16:59)
--- NOTE | 2019-10-26 12:18 | NUR ---
MS/RN NOTES US KIDNEY RESULT MD IS AWARE NO NEW ORDER AT THIS TIME.
--- NOTE | 2019-10-26 12:59 | NUR ---
MS/RN NOTES HYDRALAZINE 50MG 1 TAB IS WITH HELD BP 105/79 P 73. WILL CONTINUE TO MONITOR.
[2019-10-26] MEDS: IV D5W 1,000 ML IV PRN (13:10)
[2019-10-26] MEDS: VANCOMYCIN 1 GM in IV D5W 250 ML IV SCH (13:43)
--- NOTE | 2019-10-26 15:06 | NUR ---
MS/RN NOTES DR. ARELLANO ORDER MIDLINE INSERTION NOTED AND CARRIED OUT.
[2019-10-26 16:00] VITALS: BP 156/66
[2019-10-26] MEDS: CEFEPIME 1 GM in IV D5W 50 ML IV SCH (16:59)
--- NOTE | 2019-10-26 19:05 | NUR ---
RN MS OPENING NOTES RECEIVED PATIENT IN BED AWAKE ALERT AND ORIENTED X1 CONFUSED, MUMBLES, ON 2 L VIA NC RESPIRATIONS EVEN AND UNLABORED WITH EQUAL RISE AND FALL OF CHEST, ON SOFT WRIST RESTRAINTS PATIENT REMOVES MEDICAL TUBING, SKIN CHECKS DOWN, WNL PULSES PALPABLE. CIRCULATION CHECKS DONE, DE [place] CRUZ CATHETER IN PLACE NOTED YELLOW COLOR URINE LEFT UPPER ARM MIDLINE SITE INTACT AND PATENT, ORIENTED TO STAFF AND CALL LIGHT AND KEPT WITHIN REACH, SAFETY PRECAUTIONS IN PLACE, LOW BED AND LOCKED, BED ALARM IN PLACE, NOTED RIGHT ARM SWELLING WILL CONTINUE TO ELEVATE, RUE ELEVATED. WILL CONTINUE TO MONITOR AND ATTEND TO NEEDS. WILL CONTINUE TO CLOSELY MONITOR URINE OUTPUT.
--- NOTE | 2019-10-26 19:19 | NUR ---
MS/RN CLOSING NOTES PATIENT IS ALERT AND ORIENTED X1. PATIENT NO SIGN AND SYMPTOM OF PAIN AT THIS TIME. PATIENT IN NO APPARENT RESPIRATORY DISTRESS NOTED. ALL DUE MEDICATION WAS GIVEN. IV ACCESS AT LEFT FOREARM #22G, LEFT UPPER MIDLINE #18G WITH IV ACCESS AT D5W 1L AT 100ML/HR ON AND INFUSING WELL. CT ABDOMEN PELVIS MD IS AWARE. DE LA CRUZ CATHETER OUTPUT 1350ML. SEEN AND EXAMINED BY MD WITH ORDERS MADE AND CARRIED OUT. ALL DUE MEDICATION WAS ORDERS. SAFETY PRECAUTION IN PLACED. BED IN LOWEST POSITION AND LOCKED. SIDE RAILS UP X 2. WILL ENDORSED TO ADULT CARE PROVIDER FOR JOANIE.
[2019-10-26 20:00] VITALS: BP_SYST 130; BP_SYST 134; BP_DIAS 59; BP_DIAS 80
[2019-10-27 04:00] VITALS: BP 112/50
[2019-10-27] MEDS: ALBUTEROL FS 2.5 MG/3 ML VIAL.NEB NEB PRN (06:08)
[2019-10-27] MEDS: BLOOD SUGAR DIAGNOSTIC 1 EACH STRIP IN SCH ×3 (06:12→17:43)
[2019-10-27] MEDS: INSULIN REGULAR, HUMAN 100 UNIT/ML 3 ML VIAL SQ PRN ×3 (06:12→17:45)
[2019-10-27] MEDS: IV D5W 1,000 ML IV PRN ×2 (06:12→17:28)
--- NOTE | 2019-10-27 06:24 | NUR ---
rn ms note noted patient with wheezing requested rt treatment vs wnl 142/59,20,97.6, sp02 100% at 2l via nc
--- NOTE | 2019-10-27 06:38 | NUR ---
RN MS CLOSING NOTES PATIENT IN BED AWAKE ALERT AND ORIENTED X1 CONFUSED, MUMBLES, ON 2 L VIA NC RESPIRATIONS EVEN AND UNLABORED WITH EQUAL RISE AND FALL OF CHEST SP02 100%, ON SOFT WRIST BILATERAL RESTRAINTS PATIENT REMOVES MEDICAL TUBING, SKIN CHECKS DOWN, WNL PULSES PALPABLE. CIRCULATION CHECKS DONE, DE LA CRUZ CATHETER WITH CORRECT ALIGNMENT AND DRAINING TOTAL OUTPUT 900CC , IN PLACE NOTED YELLOW COLOR URINE , LEFT UPPER ARM MIDLINE SITE INTACT AND PATENT, REPOSITIONED Q2HRS,HEELS OFFLOADED, CALL LIGHT KEPT WITHIN REACH, SAFETY PRECAUTIONS IN PLACE, LOW BED AND LOCKED, BED ALARM IN PLACE, NOTED RIGHT ARM SWELLING DECREASED CONTINUED TO ELEVATE, RUE ELEVATED. WILL CONTINUE TO MONITOR AND ATTEND TO NEEDS AND ENDORSE TO NEXT SHIFT.
--- NOTE | 2019-10-27 06:42 | NUR ---
RN MS NOTES RT DUONEB TREATMENT NOTED EFFECTIVE DECREASE IN WHEEZING NOTED VS WNL SP02 100%. ALERT AND ORIENTED X 1 NAME OPENS EYES. REMAINS STABLE AT THIS TIME.
[2019-10-27 06:55] LABS: CALCIUM, SERUM 8.3 mg/dL (8.5-10.1); CARBON DIOXIDE 22 mmol/L (21-32); CHLORIDE 110 mmol/L (98-107); CREATININE 2.3 mg/dL (0.6-1.3); GLUCOSE 102 mg/dL (74-106); MAGNESIUM 2.1 mg/dL (1.8-2.4); PHOSPHORUS 2.7 mg/dL (2.5-4.9); POTASSIUM 3.9 mmol/L (3.5-5.1); SODIUM SERUM 142 mmol/L (136-145); UREA NITROGEN, BLOOD 36 mg/dL (7-18)
[2019-10-27 06:58] LABS: BASOPHILS % (AUTO) 0.4 % (0.0-2.0); EOSINOPHILS % (AUTO) 7.7 % (0.0-6.0); HEMATOCRIT 25 % (39-51); HEMOGLOBIN 8.5 g/dL (13.5-17.5); LYMPHOCYTES % (AUTO) 22.5 % (20.0-44.0); MEAN CORPUSCULAR HGB CONC 34 g/dl (31.0-36.0); MEAN CORPUSCULAR VOLUME 94 fL (80-96); MONOCYTES # (AUTO) 0.6 /CMM (0.1-1.30); MONOCYTES % (AUTO) 13.4 % (2.0-12.0); NEUTROPHILS # (AUTO) 2.6 /CMM (1.8-8.9); PLATELET COUNT (AUTO) 180 /CMM (150-450); RED BLOOD CELL COUNT(AUTO) 2.68 MIL/uL (4.5-6.0); WHITE BLOOD COUNT (AUTO) 4.6 K/uL (4.3-11.0)
[2019-10-27] MEDS: PANTOPRAZOLE 40 MG VIAL IV SCH (08:22)
[2019-10-27] MEDS: hydrALAZINE HCL 50 MG TABLET PO SCH ×3 (08:22→17:00)
[2019-10-27] MEDS: CLOTRIMAZOLE 1% 15 GM TUBE TP SCH ×2 (08:22→17:11)
[2019-10-27] MEDS: NITROGLYCERIN 30 GM TUBE TP SCH ×2 (08:24→21:17)
--- NOTE | 2019-10-27 13:07 | NUR ---
MS/RN NOTES HYDRALAZINE 50MG 1 TAB WAS WITH HELD, BP 106/58 P 68. WILL CONTINUE TO MONITOR.
[2019-10-27] MEDS ORDERED: GLUCERNA SHAKE 237 ML CAN PO SCH (13:30)
[2019-10-27 16:00] VITALS: BP 112/50
[2019-10-27] MEDS: CEFEPIME 1 GM in IV D5W 50 ML IV SCH (17:10)
--- NOTE | 2019-10-27 17:47 | NUR ---
MS/RN NOTES HYDRALAZINE 50MG 1 TAB WAS WITH HELD, BP 108/50 P 73. WILL CONTINUE TO MONITOR.
--- NOTE | 2019-10-27 19:30 | NUR ---
MS/RN OPENING NOTES RECEIVED PATIENT IN BED AWAKE. PATIENT IS ALERT AND ORIENTED X1. NO SIGN AND SYMPTOM OF PAIN AT THIS TIME. PATIENT IN NO APPARENT RESPIRATORY DISTRESS OR SOB. IV ACCESS LEFT UPPER MIDLINE #18G. DISCHARGE IS PROCESS. SAFETY PRECAUTION IN PLACED. BED IN LOWEST POSITION AND LOCKED. SIDE RAILS UP X 2. SOFT WRIST RESTRAINTS ARE IN PLACE BILATERAL, NO SIGNS OF INJURIES. WILL CONTINUE TO MONITOR.
--- NOTE | 2019-10-27 19:31 | NUR ---
MS/RN CLOSING NOTES PATIENT IS ALERT AND ORIENTED X1. PATIENT NO SIGN AND SYMPTOM OF PAIN AT THIS TIME. PATIENT IN NO APPARENT RESPIRATORY DISTRESS NOTED. ALL DUE MEDICATION WAS GIVEN. IV ACCESS AT LEFT FOREARM #22G, LEFT UPPER MIDLINE #18G WITH IV ACCESS AT D5W 1L AT 100ML/HR ON AND INFUSING WELL. SEEN AND EXAMINED BY MD WITH ORDERS MADE AND CARRIED OUT. ALL DUE MEDICATION WAS ORDERS. SAFETY PRECAUTION IN PLACED. BED IN LOWEST POSITION AND LOCKED. SIDE RAILS UP X 2. PATIENT IS FOR DISCHARGED TODAY,WILL ENDORSED TO KILN STACKER.
[2019-10-27 20:43] VITALS: BP 140/64
[2019-10-27 21:17] VITALS: BP 140/64
--- NOTE | 2019-10-27 21:30 | NUR ---
MS/RN D/C NOTES PATIENT IS BEING DISCHARGED TO [facility]. FACILITY WAS CALLED AND REPORT GIVEN TO SHANI. PATIENT IS RETURN TO FACILITY. PATIENT IS BEING DISCHARGED WITH DE LA CRUZ CATH IN PLACE DRAINING CLEAR YELLOW URINE. PATIENT HAS IV ACCESS IN PLACE HAYES MIDLINE, WILL BE CONTINUING IV ANTIBIOTIC TREATMENTS. [facility] IS HERE TO TRANSFER PATIENT. PATIENT WAS SAFETY PLACED [facility] VIA TWO CAN MARKER. NO INJURIES SUSTAINED. PATIENT IS IN NO SIGNS OF SOB,PAIN OR DISTRESS. VITAL SIGNS WITHIN NORMAL LIMITS.
[2019-10-28] MEDS ORDERED: PANTOPRAZOLE 40 MG/PACK PACK PO SCH (07:30)
== END 2019-10-27 21:35 | DRG 698 ==
LOC: ER 07:12 → TELE1 09:52 → TELE-TD 10:54 → TELE1 10-22 08:25 → TELE 10-22 09:55 → MED 10-23 08:39
PROC: 05H633Z Insertion of Infusion Device into Left Subclavian Vein, Percutaneous Approach (ICD-10-PCS; principal; 2019-10-26)
PROC: B547ZZA Ultrasonography of Left Subclavian Vein, Guidance (ICD-10-PCS; 2019-10-26)
DX: T83.518A Infection and inflammatory reaction due to other urinary catheter, initial encounter (principal); A41.9 Sepsis, unspecified organism; N17.0 Acute kidney failure with tubular necrosis; G92 Toxic encephalopathy; R65.20 Severe sepsis without septic shock; N39.0 Urinary tract infection, site not specified; E87.0 Hyperosmolality and hypernatremia; K92.2 Gastrointestinal hemorrhage, unspecified; Y83.8 Other surgical procedures as the cause of abnormal reaction of the patient, or of later complication, without mention of misadventure at the time of the procedure; Y92.129 Unspecified place in nursing home as the place of occurrence of the external cause; G30.9 Alzheimer's disease, unspecified; F02.80 Dementia in other diseases classified elsewhere, unspecified severity, without behavioral disturbance, psychotic disturbance, mood disturbance, and anxiety; N18.9 Chronic kidney disease, unspecified; I25.10 Atherosclerotic heart disease of native coronary artery without angina pectoris; I12.9 Hypertensive chronic kidney disease with stage 1 through stage 4 chronic kidney disease, or unspecified chronic kidney disease; E03.9 Hypothyroidism, unspecified; E11.22 Type 2 diabetes mellitus with diabetic chronic kidney disease; Z87.440 Personal history of urinary (tract) infections; J45.909 Unspecified asthma, uncomplicated; D64.9 Anemia, unspecified; Z74.01 Bed confinement status; Z79.4 Long term (current) use of insulin; N40.1 Benign prostatic hyperplasia with lower urinary tract symptoms; R33.8 Other retention of urine; Z79.01 Long term (current) use of anticoagulants; E78.5 Hyperlipidemia, unspecified; Z79.82 Long term (current) use of aspirin; N32.0 Bladder-neck obstruction; M62.50 Muscle wasting and atrophy, not elsewhere classified, unspecified site; B95.2 Enterococcus as the cause of diseases classified elsewhere; B96.4 Proteus (mirabilis) (morganii) as the cause of diseases classified elsewhere; J44.9 Chronic obstructive pulmonary disease, unspecified
CPT/HCPCS: 36410; 36415; 36600; 71045-TC; 76770-TC; 80048-TC; 80053-TC; 80061-TC; 80076-TC; 80202-TC; 81000-TC; 82272-TC; 82550-TC; 82728-TC; 82962-TC; 83540-TC; 83605-TC; 83690-TC; 83735-TC; 83970; 84100-TC; 84155; 84165; 84439-TC; 84443-TC; 84484-TC; 85025-TC; 85730-TC; 86850-TC; 86921-TC; 87040-TC; 87081-TC; 87086-TC; 87186-TC; 92521; 92526; 93307-TC; 94799-TC; 97530-TC; C9113; C9803-CS; G0378; J0692; J0696; J1815; J2354; J2405; J3370; J3490; J7030; J7042; J7060; J7070; U0003-CS

== ENCOUNTER 2020-01-03 09:39 | Inpatient (IN) | payer MEDICARE, OTHER ==
[~2020-01-03] VITALS: Ht 167.6 cm; Wt 60.3 kg
[~2020-01-03 09:39] MED LIST changes: +ACET-868 PO; +ACID1TAB12 PO; +APIX2.5T PO; +ASPI-1169 PO; -ASPI-1420 PO; +BUDE10.2 IH; +CALC1TAB30 PO; +CLON0.1T PO; +CRAN3875 PO; +CRAN425C6 PO; +DOCU-141 PO; -DONE10TA44 PO; -HYDR-3974 PO; +HYDR-4384 PO; +INSU100V11 SQ; -LEVO500T23 PO; +LOSA50TA39 PO; +MAGN400O6 PO; +MEMA10TA PO; -MEMA28CA PO; +MULT-447 PO; +QUET25TA PO; -SALM50DI IH; +TYL2T PO
--- NOTE | 2020-01-03 09:40 | NUR ---
RODOLFO FROM [facility] C/O DE LA CRUZ CATH RE INSERTION PER EMT "PT PULLED OUT HIS DE LA CRUZ LAST NIGHT". TO ER BED 6, HOOKED TO BP CUFF AND POX, CHANGED TO HOSP GOWN, PATIENT WARM TO TOUCH, AAOx 1, BREATHING EVEN AND UNLABORED, NAD NOTED, DR ROA AT BEDSIDE
[2020-01-03] MEDS ORDERED: ACETAMINOPHEN 650 MG/SUPP.RECT RC ONE ×2 (10:08→10:30)
--- NOTE | 2020-01-03 10:17 | NUR ---
ATTEMPTED TO INSERT DE LA CRUZ CATHETER. UNSUCCESSFUL. AWARE
--- NOTE | 2020-01-03 10:18 | NUR ---
PHYSICAL EDUCATION PROFESSOR AT BEDSIDE
[2020-01-03 10:22] LABS: BASOPHILS % (AUTO) 0.2 % (0.0-2.0); EOSINOPHILS % (AUTO) 0.2 % (0.0-6.0); HEMATOCRIT 39 % (39-51); HEMOGLOBIN 12.7 g/dL (13.5-17.5); LYMPHOCYTES % (AUTO) 11.9 % (20.0-44.0); MEAN CORPUSCULAR HGB CONC 33 g/dl (31.0-36.0); MEAN CORPUSCULAR VOLUME 94 fL (80-96); MONOCYTES # (AUTO) 1.2 /CMM (0.1-1.30); MONOCYTES % (AUTO) 14.7 % (2.0-12.0); NEUTROPHILS # (AUTO) 6.2 /CMM (1.8-8.9); PLATELET COUNT (AUTO) 280 /CMM (150-450); RED BLOOD CELL COUNT(AUTO) 4.09 MIL/uL (4.5-6.0); WHITE BLOOD COUNT (AUTO) 8.5 K/uL (4.3-11.0)
[2020-01-03 10:30] LABS: CALCIUM, SERUM 9.3 mg/dL (8.5-10.1); CARBON DIOXIDE 23 mmol/L (21-32); CHLORIDE 102 mmol/L (98-107); CREATININE 2.7 mg/dL (0.6-1.3); GLUCOSE 266 mg/dL (74-106); POTASSIUM 4.9 mmol/L (3.5-5.1); SODIUM SERUM 134 mmol/L (136-145); UREA NITROGEN, BLOOD 47 mg/dL (7-18)
[2020-01-03] MEDS ORDERED: IV NS 0.9% 1,000 ML BAG IV ONE (10:30)
[2020-01-03] MEDS ORDERED: IPRA0.2S9 IH (10:36)
[2020-01-03] MEDS ORDERED: ALBU0.633 IH (10:36)
[2020-01-03] MEDS ORDERED: NITR1OIN2 TD (10:36)
[2020-01-03] MEDS ORDERED: PANT40TA2 PO (10:36)
[2020-01-03] MEDS ORDERED: HYDR-4077 PO (10:36)
[2020-01-03 10:37] LABS: ALANINE AMINOTRANSFERASE 10 U/L (12-78); ALKALINE PHOSPHATASE 133 U/L (46-116); ASPARTATE AMINOTRANSFERASE 15 U/L (15-37); BILIRUBIN,DIRECT 0.1 mg/dL (0.0-0.2); BILIRUBIN,TOTAL 0.3 mg/dL (0.2-1.0); TOTAL PROTEIN, SERUM 7.8 g/dL (6.4-8.2)
--- NOTE | 2020-01-03 11:09 | NUR ---
CALLED UROLOGIST RADHA
[2020-01-03] MEDS ORDERED: MAG HYDROX/AL HYDROX/SIMETH 30 ML UDC PO PRN (11:30)
[2020-01-03] MEDS ORDERED: ONDANSETRON HCL/PF 4 MG/2 ML VIAL IVP PRN (11:30)
[2020-01-03] MEDS ORDERED: HYDROCODONE/APAP 5/325MG TABLET PO PRN (11:30)
[2020-01-03] MEDS ORDERED: ZOLPIDEM TARTRATE 5 MG TABLET PO PRN (11:30)
[2020-01-03] MEDS ORDERED: IV NS 0.9% 1,000 ML IV PRN (11:30)
[2020-01-03] MEDS ORDERED: MORPHINE SULFATE INJ 2 MG/ML DISP.SYRIN IV PRN (11:30)
[2020-01-03] MEDS ORDERED: MAGNESIUM HYDROXIDE 30 ML UDC PO PRN (11:30)
[2020-01-03] MEDS ORDERED: Z GUARD REMEDY 2 OZ OINT TP PRN (11:30)
[2020-01-03] MEDS ORDERED: ACETAMINOPHEN 325 MG TABLET PO PRN (11:30)
--- NOTE | 2020-01-03 11:42 | NUR ---
COVID SWAB PCR DONE AND SENT TO LAB
--- NOTE | 2020-01-03 11:48 | NUR ---
REPORT GIVEN TO SHANT GUEVARA FOR JOANIE
[2020-01-03] MEDS ORDERED: VANCOMYCIN 1 GM in IV D5W 250 ML IV ONE (12:00)
--- NOTE | 2020-01-03 12:30 | NUR ---
TELE/RN NOTES RECEIVED REPORT FROM [facility] PRESSROOM SUPERVISOR A FEMALE PATIENT. INITIAL VITAL SIGN TAKEN AND RECORDED BP 167/65 TEMP 98 RR 16 P 68. SKIN AND INITIAL ASSESSMENT WAS DONE. PATIENT IN NO APPARENT RESPIRATORY DISTRESS NOTED. NO SIGN AND SYMPTOM OF PAIN NOTED. WILL CONTINUE TO MONITOR.
[2020-01-03 12:45] VITALS: BP 179/72
[2020-01-03] MEDS: PIPERACILLIN /TAZOBACTAM 2.25 G in IV D5W 50 ML IV SCH ×3 (13:29→23:35)
--- NOTE | 2020-01-03 15:15 | NUR ---
TELE/RN NOTES LACHELLE OTT SPEECH LANGUAGE PATHOLOGIST ASSISTANT ORDER TO DISCONTINUE NS 1L AT 75ML/HR. NOTED AND CARRIED OUT.
[2020-01-03 16:00] VITALS: BP 135/66
[2020-01-03] MEDS: hydrALAZINE HCL 50 MG TABLET PO SCH (17:17)
[2020-01-03] MEDS: METOPROLOL TARTRATE 25 MG TABLET PO SCH (17:18)
[2020-01-03] MEDS: HEPARIN SODIUM, PORCINE 5000 UNITS/1 ML VIAL SQ SCH (17:19)
[2020-01-03 18:29] VITALS: BP 135/66
--- NOTE | 2020-01-03 19:16 | NUR ---
TELE/RN CLOSING NOTES PATIENT IS ON BED. PATIENT IN NO APPARENT RESPIRATORY DISTRESS NOTED. PATIENT NO SIGN AND SYMPTOM PAIN NOTED AT THIS TIME. TELE MONITOR WAS IN PLACE READING SINUS RHYTHM 67 BPM. IV ACCESS AT LEFT FOREARM # 18G PATENT AND INTACT. SEEN AND EXAMINED BY MD WITH ORDERS MADE AND CARRIED OUT. ALL DUE MEDICATION WAS GIVEN. SAFETY PRECAUTIONS WAS IN PLACE. BED IN LOWEST POSITION AND LOCKED. SIDERAILS UP X2. CALL LIGHT WITH IN REACH. WILL ENDORSED TO SUBSTATION ENGINEER FOR JOANIE.
--- NOTE | 2020-01-03 19:30 | NUR ---
TELE/RN OPENING NOTES RECEIVED PATIENT IN BED RESTING. PATIENT IS ALERT AND ORIENT X 1, NORWEGIAN SPEAKING. PATIENT SHOWS NO SIGNS OF SOB OR RESPIRATORY DISTRESS NOTED. BREATHING IS EVEN AND UNLABORED. TELE READING SR 63. PATIENT HAS LEFT FOREARM #18G IV INTACT. WILL MONITOR PATIENT URINE OUTPUT DURING SHIFT. BILATERAL SOFT RESISTANTS ARE IN PLACE, EXTREMITY CIRCULATION IS GOOD. SAFETY MEASURES ARE IN PLACE, BED IS LOCKED AND PLACED IN THE LOW POSITION, CALL LIGHT WITHIN REACH. WILL CONTINUE TO MONITOR DURING SHIFT.
[2020-01-03 20:00] VITALS: BP 131/58
[2020-01-03 20:18] VITALS: BP 131/58
[2020-01-03] MEDS: TAMSULOSIN 0.4 MG CAP.SR.24H PO SCH (21:30)
[2020-01-03] MEDS: QUETIAPINE FUMARATE 25 MG TABLET PO SCH (21:30)
[2020-01-03] MEDS: MIRTAZAPINE 15 MG TABLET PO SCH (21:30)
[2020-01-04 00:34] VITALS: BP 93/52
[2020-01-04 04:54] VITALS: BP 136/62
[2020-01-04] MEDS: PIPERACILLIN /TAZOBACTAM 2.25 G in IV D5W 50 ML IV SCH ×4 (05:21→23:04)
--- NOTE | 2020-01-04 06:25 | NUR ---
TELE/RN CLOSING NOTES PATIENT IN BED RESTING. PATIENT IS ALERT AND ORIENT X 1, URDU SPEAKING. PATIENT SHOWS NO SIGNS OF SOB OR RESPIRATORY DISTRESS NOTED. BREATHING IS EVEN AND UNLABORED. TELE READING SR 68. PATIENT HAS LEFT FOREARM #18G IV INTACT. PATIENT HAD URINE OUTPUT DURING SHIFT. BILATERAL SOFT RESISTANTS ARE IN PLACE, EXTREMITY CIRCULATION IS GOOD. ALL PATIENTS NEEDS HAVE BEEN MET DURING SHIFT.SAFETY MEASURES ARE IN PLACE, BED IS LOCKED AND PLACED IN THE LOW POSITION, CALL LIGHT WITHIN REACH. WILL ENDORSE CARE TO DAY SHIFT.
--- NOTE | 2020-01-04 07:00 | NUR ---
RN OPENING NOTES RECEIVED PATIENT IN BED RESTING. PATIENT IS ALERT AND ORIENT X 1, YAKUT SPEAKING. NO SIGNS OF SOB OR RESPIRATORY DISTRESS NOTED. BREATHING IS EVEN AND UNLABORED. TELE READING SR 63. PATIENT HAS LEFT FOREARM #18G IV INTACT. PER HIGH FREQUENCY MILL OPERATOR NURS PT HAD URINE PUTPUT LAST NIGHT, WAS CHANGED 3X. BILATERAL SOFT RESISTANTS ARE IN PLACE, EXTREMITY CIRCULATION IS GOOD. SAFETY MEASURES ARE IN PLACE, BED IS LOCKED AND PLACED IN THE LOW POSITION, CALL LIGHT WITHIN REACH. WILL CONTINUE TO MONITOR DURING SHIFT.
[2020-01-04 07:44] LABS: BASOPHILS % (AUTO) 0.3 % (0.0-2.0); EOSINOPHILS % (AUTO) 5.3 % (0.0-6.0); HEMATOCRIT 34 % (39-51); HEMOGLOBIN 11.1 g/dL (13.5-17.5); LYMPHOCYTES # (AUTO) 1.2 /CMM (0.8-4.8); LYMPHOCYTES % (AUTO) 17.7 % (20.0-44.0); MEAN CORPUSCULAR HGB CONC 33 g/dl (31.0-36.0); MEAN CORPUSCULAR VOLUME 95 fL (80-96); MONOCYTES # (AUTO) 0.8 /CMM (0.1-1.30); MONOCYTES % (AUTO) 11.6 % (2.0-12.0); NEUTROPHILS # (AUTO) 4.4 /CMM (1.8-8.9); NEUTROPHILS % (AUTO) 65.1 % (43.0-81.0); PLATELET COUNT (AUTO) 197 /CMM (150-450); RED BLOOD CELL COUNT(AUTO) 3.53 MIL/uL (4.5-6.0); WHITE BLOOD COUNT (AUTO) 6.7 K/uL (4.3-11.0)
[2020-01-04 08:00] VITALS: BP 118/68
[2020-01-04 08:00] LABS: ALANINE AMINOTRANSFERASE 13 U/L (12-78); ALBUMIN 2.9 g/dL (3.4-5.0); ALKALINE PHOSPHATASE 118 U/L (46-116); ASPARTATE AMINOTRANSFERASE 17 U/L (15-37); BILIRUBIN,TOTAL 0.5 mg/dL (0.2-1.0); CALCIUM, SERUM 8.9 mg/dL (8.5-10.1); CARBON DIOXIDE 22 mmol/L (21-32); CHLORIDE 106 mmol/L (98-107); CREATININE 3.1 mg/dL (0.6-1.3); GLUCOSE 167 mg/dL (74-106); MAGNESIUM 2.4 mg/dL (1.8-2.4); PHOSPHORUS 2.8 mg/dL (2.5-4.9); POTASSIUM 4.5 mmol/L (3.5-5.1); SODIUM SERUM 139 mmol/L (136-145); TOTAL PROTEIN, SERUM 7.2 g/dL (6.4-8.2); UREA NITROGEN, BLOOD 50 mg/dL (7-18)
[2020-01-04 08:11] LABS: CHOLESTEROL 132 mg/dL (<200); HDL CHOLESTEROL 37 mg/dL (40-60); LDL 72 mg/dL (0-99); THYROID STIMULATING HORMONE 0.238 uIU/mL (0.358-3.74); TRIGLYCERIDES 172 mg/dL (30-150)
--- NOTE | 2020-01-04 08:25 | NUR ---
IV FLUIDS NS RESTRATED. RUNNING AT 75ML/HR,.
--- NOTE | 2020-01-04 08:30 | NUR ---
HOSPITALIST LACHELLE OTT MADE AWARE OF PTS LACTIC ACID LEVELS OF 3.0. PER LACHELLE, HE WILL PUT ORDERS IN
[2020-01-04] MEDS: ASPIRIN 81 MG TAB.CHEW PO SCH (08:32)
[2020-01-04] MEDS: hydrALAZINE HCL 50 MG TABLET PO SCH ×3 (08:32→16:21)
[2020-01-04] MEDS: QUETIAPINE FUMARATE 25 MG TABLET PO SCH ×2 (08:32→21:53)
[2020-01-04] MEDS: ACIDOPHILUS/BULGARICUS 1 EACH TAB.CHEW PO SCH (08:32)
[2020-01-04] MEDS: METOPROLOL TARTRATE 25 MG TABLET PO SCH ×2 (08:32→16:22)
[2020-01-04] MEDS: PANTOPRAZOLE 40 MG TABLET.DR PO SCH (08:32)
[2020-01-04] MEDS: LEVOTHYROXINE SODIUM 125 MCG TABLET PO SCH (08:32)
[2020-01-04] MEDS: HEPARIN SODIUM, PORCINE 5000 UNITS/1 ML VIAL SQ SCH ×2 (08:33→16:23)
--- NOTE | 2020-01-04 09:30 | NUR ---
OBATAINED CONSENT FROM PTS DAUGHTER PIETRO MURPHY FOR BILATERAL NEPHROSTOMY TUBE PLACEMENT. VERIFIED WITH IMMACULATE RN VIA PHONE. AGREEABLE TO PROCEDURE.
--- NOTE | 2020-01-04 09:46 | NUR ---
LAB CALLED REGARDING PTS TROPONIN LEVELS OF 0.432, TRENDING DOWN. LACHELLE EMERSON MADE AWARE.
--- NOTE | 2020-01-04 10:30 | NUR ---
CALLED PTS FACILITY [facility]. PER [facility], PTS FLU VACCINE WAS GIVEN ON 12/02/19 AND PNEUMOCOCCAL VACCINE WAS GIVEN ON 04/24/16.
--- NOTE | 2020-01-04 12:03 | NUR ---
REPORT GIVEN TO JUNIOR GUEVARA AT [facility]
--- NOTE | 2020-01-04 12:05 | NUR ---
MS/RN OPENING NOTE RECEIVED PATIENT FROM MED-SURG 2. PATIENT IS IN STABLE CONDITION. A/O X 1. RESPIRATION EVEN, UNLABORED, ON ROOM AIR, TOLERATING WELL. NO ACUTE DISTRESS NOTED. PATIENT ON TELEMONITOR. LEFT FA #18 HEPLOCK INTACT AND PATENT. SAFETY MEASURES IN PLACE, BED LOCKED AND IN LOWEST POSITION, CALL LIGHT WITHIN REACH. WILL CONTINUE TO MONITOR AND ENSURE SAFETY.
--- NOTE | 2020-01-04 12:33 | NUR ---
MS/RN RESTRAINTS PATIENT WAS RECEIVED WITH BILATERAL EXTREMITY WRIST RESTRAINTS. NO SKIN BREAKDOWN NOTED, NO SIGNS OF POOR CIRCULATION NOTED.
[2020-01-04 12:36] VITALS: BP 138/56
--- NOTE | 2020-01-04 13:14 | NUR ---
CT PERCU NEPHROSTOMY ON HOLD PER DR. JIMENEZ/ PER MR. ORTEGA.
--- NOTE | 2020-01-04 14:20 | NUR ---
MS/RN NOTE PATIENT IS TO HAVE PT/INR LABS DRAWN TOMORROW IN THE MORNING 0500 BEFORE SURGERY, NPO BY MIDNIGHT 0000 PER WORK ENVIRONMENT SAFETY INSPECTOR LACHELLE.
[2020-01-04 16:00] VITALS: BP 98/68
--- NOTE | 2020-01-04 18:58 | NUR ---
MS/RN RESTRAINTS PER GLASS UNLOADING EQUIPMENT TENDER BATPERLA BE SOFT WRIST RESTRAINTS WERE ORDERED.
[2020-01-04] MEDS: MUPIROCIN OINT 2% 22 GM TUBE NS SCH (19:00)
--- NOTE | 2020-01-04 19:30 | NUR ---
TELE/RN OPENING NOTES: RECEIVED PATIENT IN STABLE CONDITION. A/O X 1, CONFUSED. BREATHING EVEN AND UNLABORED, ON ROOM AIR, TOLERATING WELL. NO ACUTE DISTRESS NOTED. NO S/S OF PAIN. PATIENT ON TELEMONITOR WITH READING NSR 70. LEFT FA #18 HEPLOCK INTACT AND PATENT WITH IVF RUNNING AT 75MLS/HR. SAFETY MEASURES IN PLACE, BED LOCKED AND IN LOWEST POSITION, CALL LIGHT WITHIN REACH. HAS BILATERAL SOFT WRIST RESTRAINTS ON. WILL CHECK FOR CIRCULATION AND SKIN INTEGRITY. HAS A SCHEDULED PROCEDURE FOR BILATERAL NEPHROSTOMY TUBE REPLACEMENT TOMORROW. TO BE PLACED NPO AT MIDNIGHT AND TO HOLD HEPARIN IN THE MORNING. WILL CONTINUE TO MONITOR PT. ACCORDINGLY.
[2020-01-04 20:00] VITALS: BP 128/57
[2020-01-04] MEDS: MIRTAZAPINE 15 MG TABLET PO SCH (21:53)
[2020-01-04] MEDS: TAMSULOSIN 0.4 MG CAP.SR.24H PO SCH (21:53)
[2020-01-04] MEDS: IV NS 0.9% 1,000 ML IV PRN (23:04)
[2020-01-05] VITALS: BP 139/76
[2020-01-05] MEDS: VANCOMYCIN HCL 0.75 GM in IV D5W 250 ML IV SCH (01:22)
[2020-01-05 04:00] VITALS: BP 144/67
[2020-01-05] MEDS: PIPERACILLIN /TAZOBACTAM 2.25 G in IV D5W 50 ML IV SCH ×2 (05:42→13:31)
--- NOTE | 2020-01-05 06:21 | NUR ---
TELE/RN CLOSING NOTES: PATIENT REMAINS IN STABLE CONDITION. A/O X 1, CONFUSED. MOANS INCOHERENT WORDS IN AFGHAN. BREATHING EVEN AND UNLABORED, ON ROOM AIR, SATURATING AT 97%. NO ACUTE DISTRESS NOTED. NO S/S OF PAIN. PATIENT ON TELEMONITOR WITH READING NSR 82. LEFT FA #18 HEPLOCK INTACT AND PATENT WITH IVF RUNNING AT 75MLS/HR. HAS BILATERAL SOFT WRIST RESTRAINTS ON. CHECKED FOR CIRCULATION AND SKIN INTEGRITY. HAS A SCHEDULED PROCEDURE FOR BILATERAL NEPHROSTOMY TUBE REPLACEMENT IN THE AM. CONSENTS ARE READY, PREOP CHECKLIST READY AND FILLED UP. PLACED ON NPO AT MIDNIGHT. HEPARIN DOSE IN THE MORNING TO BE HELD ORDERED BY MD FOR PROCEDURE. SAFETY MEASURES KEPT IN PLACE, BED LOCKED AND IN LOWEST POSITION, CALL LIGHT WITHIN REACH. ALL DUE MEDS GIVEN ORDERED. ALL NURSING NEEDS MET AND RENDERED. KEPT CLEAN AND DRY AT ALL TIMES. WILL ENDORSE TO DAY SHIFT FOR JOANIE.
[2020-01-05 07:22] LABS: BASOPHILS % (AUTO) 0.4 % (0.0-2.0); EOSINOPHILS % (AUTO) 9.7 % (0.0-6.0); HEMATOCRIT 33 % (39-51); HEMOGLOBIN 11.1 g/dL (13.5-17.5); LYMPHOCYTES % (AUTO) 17.9 % (20.0-44.0); MEAN CORPUSCULAR HGB CONC 34 g/dl (31.0-36.0); MEAN CORPUSCULAR VOLUME 94 fL (80-96); MONOCYTES # (AUTO) 0.8 /CMM (0.1-1.30); MONOCYTES % (AUTO) 14.2 % (2.0-12.0); NEUTROPHILS # (AUTO) 3.1 /CMM (1.8-8.9); NEUTROPHILS % (AUTO) 57.8 % (43.0-81.0); PLATELET COUNT (AUTO) 213 /CMM (150-450); RED BLOOD CELL COUNT(AUTO) 3.51 MIL/uL (4.5-6.0); WHITE BLOOD COUNT (AUTO) 5.4 K/uL (4.3-11.0)
[2020-01-05] MEDS: PANTOPRAZOLE 40 MG TABLET.DR PO SCH (07:30)
[2020-01-05] MEDS: LEVOTHYROXINE SODIUM 125 MCG TABLET PO SCH (07:30)
[2020-01-05 08:00] VITALS: BP 140/88
[2020-01-05 08:02] LABS: ALANINE AMINOTRANSFERASE 16 U/L (12-78); ALBUMIN 3.2 g/dL (3.4-5.0); ALKALINE PHOSPHATASE 115 U/L (46-116); ASPARTATE AMINOTRANSFERASE 19 U/L (15-37); BILIRUBIN,TOTAL 0.5 mg/dL (0.2-1.0); CALCIUM, SERUM 9.2 mg/dL (8.5-10.1); CARBON DIOXIDE 22 mmol/L (21-32); CHLORIDE 108 mmol/L (98-107); CREATININE 2.9 mg/dL (0.6-1.3); GLUCOSE 117 mg/dL (74-106); MAGNESIUM 2.5 mg/dL (1.8-2.4); PHOSPHORUS 2.8 mg/dL (2.5-4.9); POTASSIUM 4.4 mmol/L (3.5-5.1); SODIUM SERUM 141 mmol/L (136-145); TOTAL PROTEIN, SERUM 7.5 g/dL (6.4-8.2); UREA NITROGEN, BLOOD 46 mg/dL (7-18)
--- NOTE | 2020-01-05 08:41 | NUR ---
WOUND CARE CONSULT: PT PRESENTS WITH DISCOLORED BROWNISH AREAS OF SKIN TO BILATERAL FEET, PRESENT ON ADMISSION. PT IS INCONTINENT. RECOMMENDATIONS MADE FOR SKIN PROTECTION. DISCUSSED WITH NURSING STAFF. WILL SEE PRFrandy MCFARLAND IN AGREEMENT WITH PLAN OF CARE.
[2020-01-05] MEDS: MUPIROCIN OINT 2% 22 GM TUBE NS SCH ×2 (09:00→18:01)
[2020-01-05] MEDS: ASPIRIN 81 MG TAB.CHEW PO SCH (09:00)
[2020-01-05] MEDS: QUETIAPINE FUMARATE 25 MG TABLET PO SCH ×2 (09:00→21:12)
[2020-01-05] MEDS: ACIDOPHILUS/BULGARICUS 1 EACH TAB.CHEW PO SCH (09:00)
[2020-01-05] MEDS: HEPARIN SODIUM, PORCINE 5000 UNITS/1 ML VIAL SQ SCH ×2 (09:00→17:00)
[2020-01-05] MEDS: METOPROLOL TARTRATE 25 MG TABLET PO SCH ×2 (09:00→17:39)
[2020-01-05] MEDS: hydrALAZINE HCL 50 MG TABLET PO SCH ×3 (09:00→17:39)
--- NOTE | 2020-01-05 09:00 | NUR ---
NEWS ASSIGNMENT EDITOR NOTES HEPARIN HELD DUE TO PATIENT PENDING PROCEDURE.
--- NOTE | 2020-01-05 10:00 | NUR ---
DATABASES COMPUTER CONSULTANT NOTES PATIENT TRANSFERRED TO RADIOLOGY FOR SCHEDULED CT GUIDED NEPHROSTOMY PLACEMENT.
[2020-01-05] MEDS ORDERED: NALOXONE PREFILLED SYRINGE 2 MG/2 ML SYRINGE IV ONE (10:30)
[2020-01-05] MEDS ORDERED: MIDAZOLAM HCL 5MG/ML VIAL 25 MG/5 ML VIAL IV ONE (10:30)
[2020-01-05] MEDS ORDERED: FENTANYL PF 250MCG/5ML AMPUL IV ONE (10:30)
--- NOTE | 2020-01-05 13:30 | NUR ---
RETAIL ASSOCIATE NOTES PATIENT RETURNED FROM RADIOLOGY WITH BILATERAL NEPHROSTOMY TUBES DRAINING BLOOD TINGED URIN. PATIENT AWAKE CONFUSED. VS BP 164/75 PULSE: 89 O2SAT, 96%. PATIENT SURGICAL SITES INTACT, DRY AND INTACT. WILL CONTINUE TO MONITOR.
[2020-01-05] MEDS: IPRATROPIUM NEB FS 0.5 MG/2.5 ML AMPUL.NEB IH PRN (13:44)
[2020-01-05 16:00] VITALS: BP 139/88
[2020-01-05 17:23] LABS: BILIRUBIN,URINE NEGATIVE (NEGATIVE); BLOOD, URINE 3+ Ery/uL (NEGATIVE); COLOR,URINE AMBER (YELLOW); LEUKOCYTE ESTERASE ,URINE NEGATIVE (NEGATIVE); NITRITE, URINE NEGATIVE (NEGATIVE); PROTEIN,URINE 1+ mg/dl (NEGATIVE); UGLUCOSE NEGATIVE (NEGATIVE); UROBILINOGEN,URINE 0.2 EU/dL (0.2)
[2020-01-05 17:25] LABS: BACTERIA,URINE Few /HPF (None Seen); RBC,URINE TOO NUMEROUS TO COUN /HPF (0-2); WBC,URINE 0-2 /HPF (0-3)
[2020-01-05 17:26] LABS: SQUAMOUS EPITHELIAL CELL,UR Few /HPF (None Seen)
[2020-01-05] MEDS: CEFEPIME 2 GM in IV D5W 100 ML IV SCH (17:43)
[2020-01-05] MEDS: IV NS 0.9% 1,000 ML IV PRN (17:47)
--- NOTE | 2020-01-05 18:15 | NUR ---
KEYBOARD SPECIALIST NOTES HEPARIN HELD S/P NEPHROSTOMY TUBE PLACEMENT. URIN BLOOD TINGED COLLAR.
--- NOTE | 2020-01-05 18:32 | NUR ---
DOOR OPENER NOTES NEW IV LINE INSERTED ON RIGHT UPPER ARM G22.
--- NOTE | 2020-01-05 19:03 | NUR ---
SPRING FITTER NOTES PATIENT IN BED RESTING NO SOB OR ACUTE DISTRESS NOTED. PATIENT WITH BILATERAL WRIST RESTRAINTS FOR SAFETY. PATIENT TRYING TO PULL LINES OUT. SKIN ASSESSED FOR RESTRAINTS. ALL DUE MEDICATIONS ADMINISTERED. ALL NEEDS MET. WILL ENDORSE CARE TO PM SHIFT.
[2020-01-05 20:00] VITALS: BP 179/82
[2020-01-05] MEDS: MIRTAZAPINE 15 MG TABLET PO SCH (21:10)
[2020-01-05] MEDS: TAMSULOSIN 0.4 MG CAP.SR.24H PO SCH (21:11)
[2020-01-05] MEDS: CLONIDINE HCL 0.1 MG TABLET PO PRN (21:26)
[2020-01-06] VITALS: BP 101/47
[2020-01-06 04:00] VITALS: BP 126/63
--- NOTE | 2020-01-06 06:06 | NUR ---
CONTRACTS OFFICER CLOSING NOTE PATIENT IN BED RESTING NO SOB OR ACUTE DISTRESS NOTED. PATIENT WITH BILATERAL WRIST RESTRAINTS FOR SAFETY. GOOD CIRCULATION TO HANDS WITH CAP REFILL LESS THEN 3 SECONDS. PT ON RA. BILATERAL NEPHROSTOMY TUBES DRAINING WITH RIGHT SIDE OUTPUT OF 350 AND LEFT SIDE OUTPUT OF 250. DRESSINGS ARE INTACT RIGHT SIDE HAS SMALL AMOUNT OF SEROUSSANGUINOS DRAINAGE VISIBLE ON DRESSING. NO INCIDENCE LAST NIGHT VS WNL WILL CONT TO MONITOR AND ENDORSE TO ONCOMING SHIFT.
[2020-01-06] MEDS: IV NS 0.9% 1,000 ML IV PRN (06:16)
[2020-01-06 06:47] LABS: CALCIUM, SERUM 9.7 mg/dL (8.5-10.1); CARBON DIOXIDE 20 mmol/L (21-32); CHLORIDE 113 mmol/L (98-107); CREATININE 2.2 mg/dL (0.6-1.3); GLUCOSE 104 mg/dL (74-106); POTASSIUM 4.7 mmol/L (3.5-5.1); SODIUM SERUM 143 mmol/L (136-145); UREA NITROGEN, BLOOD 38 mg/dL (7-18)
--- NOTE | 2020-01-06 07:55 | NUR ---
PROGRAM DIRECTOR/AIR PERSONALITY OPENING NOTES RECEIVED PATIENT RESTING IN BED A/OX1. ON RA, WITH NO SOB OR ACUTE RESPIRATORY DISTRESS NOTED. PATIENT WITH BILATERAL WRIST RESTRAINTS FOR SAFETY. GOOD CIRCULATION TO HANDS WITH CAP REFILL LESS THEN 3 SECONDS. BILATERAL NEPHROSTOMY TUBES DRAINING, DRESSINGS ARE INTACT RIGHT. PT ON TELE MONITOR WITH SR. IV TO RT UPPER ARM #22G PATENT AND INTACT INFUSING NS@75ML/HR NO REDNESS OR SWELLING NOTED. BED IS AT LOWEST POSITION AND LOCKED WITH SIDE RAILS UPX2 AND CALL LIGHT WITH IN REACH. WILL CONTINUE TO MONITOR
[2020-01-06] MEDS: LEVOTHYROXINE SODIUM 125 MCG TABLET PO SCH (07:57)
[2020-01-06] MEDS: PANTOPRAZOLE 40 MG TABLET.DR PO SCH (07:57)
[2020-01-06 08:00] VITALS: BP 130/72
[2020-01-06] MEDS: HEPARIN SODIUM, PORCINE 5000 UNITS/1 ML VIAL SQ SCH ×2 (09:00→17:00)
[2020-01-06] MEDS: MUPIROCIN OINT 2% 22 GM TUBE NS SCH ×2 (09:13→17:07)
[2020-01-06] MEDS: QUETIAPINE FUMARATE 25 MG TABLET PO SCH ×2 (09:14→21:11)
[2020-01-06] MEDS: METOPROLOL TARTRATE 25 MG TABLET PO SCH ×2 (09:14→17:16)
[2020-01-06] MEDS: hydrALAZINE HCL 50 MG TABLET PO SCH ×3 (09:14→17:16)
[2020-01-06] MEDS: ASPIRIN 81 MG TAB.CHEW PO SCH (09:14)
[2020-01-06] MEDS: ACIDOPHILUS/BULGARICUS 1 EACH TAB.CHEW PO SCH (09:14)
--- NOTE | 2020-01-06 09:34 | NUR ---
HOROLOGIST NOTES HEPARIN 5,000 UNITS ON HOLD. PT HAS NEPHROSTOMY DRAIN TO LT AND RT DRAINING WITH SEROUSANGENOUS FLUID. NOTIFIED
[2020-01-06] MEDS: VANCOMYCIN HCL 0.75 GM in IV D5W 250 ML IV SCH (12:56)
--- NOTE | 2020-01-06 13:12 | NUR ---
MEDICAL ADMINISTRATIVE NOTES PATIETNT BP @13:05 93/61 HR:67 REPEAT @13:10 BP:109/57 HR:65. WILL HOLD APRESOLINE 50 MG 1300 DOSE.
[2020-01-06 15:47] VITALS: BP 125/60
[2020-01-06] MEDS: IPRATROPIUM NEB FS 0.5 MG/2.5 ML AMPUL.NEB IH PRN (16:19)
[2020-01-06] MEDS: CEFEPIME 2 GM in IV D5W 100 ML IV SCH (17:05)
--- NOTE | 2020-01-06 18:39 | NUR ---
TEMPORARY OFFICE ASSISTANT CLOSING NOTES PATIENT RESTING IN BED A/OX1. ON RA, WITH NO SOB OR ACUTE RESPIRATORY DISTRESS NOTED. PATIENT WITH BILATERAL WRIST RESTRAINTS FOR SAFETY. GOOD CIRCULATION TO HANDS WITH CAP REFILL LESS THEN 3 SECONDS. BILATERAL NEPHROSTOMY TUBES DRAINING, DRESSINGS ARE INTACT LT DRAIN 200CC SEROSANGEOUNOUS OUTPUT RT DRAIN 200CC SEROSANGENOUS OURPUT. PT ON TELE MONITOR WITH SINUS PRATEEK, HR IN THE 50'S. IV TO RT HAND #20G PATENT AND INTACT INFUSING NS@75ML/HR NO REDNESS OR SWELLING NOTED. BED IS AT LOWEST POSITION AND LOCKED WITH SIDE RAILS UPX2 AND CALL LIGHT WITH IN REACH. WILL ENDORSE TO ONCOMING SHIFT
--- NOTE | 2020-01-06 19:10 | NUR ---
[employer] OPENING NOTES RECEIVED PATIENT IN BED HOB ELEVATED FOR ASPIRATION PRECAUTIONS, AWAKE AND ALERT X1, CONFUSED MUMBLES WORDS, RESPIRATIONS EVEN AND UNLABORED WITH EQUAL RISE AND FALL OF CHEST, APPEARS COMFORTABLE, NO FACIAL GRIMACING OR MOANS PRESENT, ON LIGHT INDUSTRIAL SUPERVISOR [email or web address].RIGHT AND LEFT NEPHROSTOMY TUBE IN PLACE AND DRAINING, BLOOD TINGED URINE COLOR NOTED, WILL CONTINUE TO MONITOR, PER AM REPORT MD AWARE. IVF CONTINUED ORDERED, IV SITE TO RIGHT HAND #20G INTACT AND PATENT, NO REDNESS, NO INFILTRATION PRESENT, PATIENT REPOSITIONED, HEELS OFFLOADED, SCD'S IN PLACE, VS WNL. PATIENT IS ON SOFT BILATERAL WRIST RESTRAINTS, SKIN CHECKS DONE WNL ,PULSES PALPABLE, WILL CONTINUE TO MONITOR AND ATTEND TO NEEDS, REMAINS COMFORTABLE.
[2020-01-06 20:00] VITALS: BP 132/70
[2020-01-06] MEDS: TAMSULOSIN 0.4 MG CAP.SR.24H PO SCH (21:11)
[2020-01-06] MEDS: MIRTAZAPINE 15 MG TABLET PO SCH (21:12)
[2020-01-07] VITALS (7 sets, daily range): BP systolic 130–166; BP diastolic 54–81
[2020-01-07] MEDS: CLONIDINE HCL 0.1 MG TABLET PO PRN (00:01)
--- NOTE | 2020-01-07 00:03 | NUR ---
FINE ARTIST NOTES NOTED BP ABOVE SBP 160. CHECKED TWICE BP 163/86. AND 166/81, HR 76. CLONIDINE PRN GIVEN ORDERED. WILL CONTINUE TO MONITOR FOR EFFECTIVENESS.
[2020-01-07] MEDS: IV NS 0.9% 1,000 ML IV PRN ×2 (05:34→18:27)
--- NOTE | 2020-01-07 06:10 | NUR ---
right nephrostomy total output is 500 left nephrostomy total output is 350 Addendum: 01/07/20 at 0611 by SARA SANABRIA RN Amended: Links added.
--- NOTE | 2020-01-07 06:36 | NUR ---
SHUTDOWN PLANNER CLOSING NOTES PATIENT IN BED HOB ELEVATED FOR ASPIRATION PRECAUTIONS, AWAKE,ALERT AND ORIENTED X1, CONFUSED MUMBLES WORDS, RESPIRATIONS EVEN AND UNLABORED WITH EQUAL RISE AND FALL OF CHEST, APPEARS COMFORTABLE, NO FACIAL GRIMACING OR MOANS PRESENT, ON SHINGLER SR 83.RIGHT AND LEFT NEPHROSTOMY TUBE IN PLACE AND DRAINING, BLOOD TINGED URINE COLOR NOTED, PER AM REPORT MD AWARE. IVF CONTINUED ORDERED, IV SITE TO RIGHT HAND #20G INTACT AND PATENT, NO REDNESS, NO INFILTRATION PRESENT, RIGHT UPPER ARM ELEVATED, PATIENT REPOSITIONED, HEELS OFFLOADED, SCD'S IN PLACE, PRN CLONIDINE WAS GIVEN AND EFFECTIVE. BLOOD PRESSURE DECREASED 141/73,HR 83 WNL. PATIENT IS ON SOFT BILATERAL WRIST RESTRAINTS, SKIN CHECKS DONE WNL ,PULSES PALPABLE, REPOSITIONED THROUGHOUT SHIFT. WILL CONTINUE TO MONITOR AND ATTEND TO NEEDS AND ENDORSE TO NEXT SHIFT. REMAINS COMFORTABLE.
[2020-01-07 06:52] LABS: BASOPHILS % (AUTO) 0.4 % (0.0-2.0); EOSINOPHILS % (AUTO) 11.6 % (0.0-6.0); HEMATOCRIT 30 % (39-51); LYMPHOCYTES # (AUTO) 1.1 /CMM (0.8-4.8); LYMPHOCYTES % (AUTO) 26.2 % (20.0-44.0); MEAN CORPUSCULAR HGB CONC 34 g/dl (31.0-36.0); MEAN CORPUSCULAR VOLUME 95 fL (80-96); MONOCYTES # (AUTO) 0.6 /CMM (0.1-1.30); MONOCYTES % (AUTO) 14.7 % (2.0-12.0); NEUTROPHILS % (AUTO) 47.1 % (43.0-81.0); PLATELET COUNT (AUTO) 176 /CMM (150-450); WHITE BLOOD COUNT (AUTO) 4.3 K/uL (4.3-11.0)
[2020-01-07 07:10] LABS: CALCIUM, SERUM 9.5 mg/dL (8.5-10.1); CARBON DIOXIDE 20 mmol/L (21-32); CHLORIDE 113 mmol/L (98-107); CREATININE 1.8 mg/dL (0.6-1.3); GLUCOSE 100 mg/dL (74-106); POTASSIUM 4.2 mmol/L (3.5-5.1); SODIUM SERUM 144 mmol/L (136-145); UREA NITROGEN, BLOOD 27 mg/dL (7-18)
[2020-01-07] MEDS: PANTOPRAZOLE 40 MG TABLET.DR PO SCH (07:30)
--- NOTE | 2020-01-07 07:45 | NUR ---
RN OPENING NOTE Patient is resting in bed, A/O x1, patient is confused with periods of agitation, combative at times, bilateral soft wrist restraints in place, two finger space apart, circulation checked, bilateral pulses present, skin remains intact. IV line in the right hand #20g is clean and intact flushing well running NS @ 75ml/hr. Bed is in lowest position, side rails x3 in upright position, call light is within reach, fall safety and aspiration precautions enforced. Will continue with plan of care.
--- NOTE | 2020-01-07 08:06 | NUR ---
WOUND CARE CONSULT: PT SEEN FOR RT ABDOMEN INTACT BLISTER. NO ERYTHEMA OR DRAINAGE NOTED. BILATERAL NEPHROSTOMY TUBES NOTED. RECOMMENDATIONS MADE FOR SKIN PROTECTION. DISCUSSED WITH NURSING STAFF. PT IS COMBATIVE AT TIMES. WILL SEE PRN. [place] IN AGREEMENT WITH PLAN OF CARE. Addendum: 01/07/20 at 0808 by DENIA MERRITT WNDNU Amended: Links added.
[2020-01-07] MEDS: HEPARIN SODIUM, PORCINE 5000 UNITS/1 ML VIAL SQ SCH ×2 (09:00→16:51)
[2020-01-07] MEDS: ACIDOPHILUS/BULGARICUS 1 EACH TAB.CHEW PO SCH (09:35)
[2020-01-07] MEDS: METOPROLOL TARTRATE 25 MG TABLET PO SCH ×2 (09:35→16:51)
[2020-01-07] MEDS: ASPIRIN 81 MG TAB.CHEW PO SCH (09:35)
[2020-01-07] MEDS: QUETIAPINE FUMARATE 25 MG TABLET PO SCH ×2 (09:36→21:12)
[2020-01-07] MEDS: hydrALAZINE HCL 50 MG TABLET PO SCH ×3 (09:36→16:51)
[2020-01-07] MEDS: LEVOTHYROXINE SODIUM 75 MCG TABLET PO SCH (09:40)
[2020-01-07] MEDS: IPRATROPIUM NEB FS 0.5 MG/2.5 ML AMPUL.NEB IH PRN (10:10)
[2020-01-07] MEDS: MUPIROCIN OINT 2% 22 GM TUBE NS SCH ×2 (10:13→16:52)
--- NOTE | 2020-01-07 14:30 | NUR ---
STORE HAND NOTE Patient is medically cleared for discharge. A/O x4, showing no signs of acute distress or SOB, stable on RA. Cleared by , Ortho, PT. OT consult to follow with [facility]. DC instructions provided and patient verbalized understanding. Skin assessed, photos taken and placed in chart. IV line removed, ID band removed. All patient needs met, all due medications given. All belongings sent with patient. Patient picked up by daughter via private car en route to home. Addendum: 01/07/20 at 1547 by MADISON APARICIO RN WRONG PATIENT *DISREGARD THIS NOTE*
[2020-01-07] MEDS: CEFEPIME 2 GM in IV D5W 100 ML IV SCH (16:50)
--- NOTE | 2020-01-07 16:52 | NUR ---
RN NOTE Heparin held d/t hematuria in left nephrostomy.
--- NOTE | 2020-01-07 18:41 | NUR ---
RN CLOSING NOTE Patient is resting in bed, A/O x1, patient is confused with periods of agitation, combative at times, bilateral soft wrist restraints in place, two finger space apart, circulation checked, bilateral pulses present, skin remains intact. Restraints renewed @ 1820. IV line in the right hand #20g is clean and intact flushing well running NS @ 75ml/hr. Bilateral nephrostomy in place. Left nephrostomy with sanguinous drainage total 400cc out. Right nephrostomy with brown drainage total 250cc out. All patient needs met, all due medications given, patient kept clean and dry throughout shift, turned and repositioned q 2 hours. Bed is in lowest position, side rails x3 in upright position, call light is within reach, fall safety and aspiration precautions enforced. Will endorse to fast food shift supervisor for JOANIE.
--- NOTE | 2020-01-07 19:49 | NUR ---
RN OPENING NOTE: Patient in bed resting comfortably. Patient is breathing well on room air, no SOB or acute respiratory distress noted. Patient non verbal but looks around the room. Noted bilateral soft restraints. Bilateral upper extremity within normal limits, cap refill less than 3 seconds, no bruising or discoloration on skin. Patient has bilateral nephrostomy, left side draining tea colored output. No output on the right side at the moment. IV access on right hand, 20 gauge, patent, no redness, or infiltration, infusing NS @ 75mL/hr. Safety precaution is in place, bed is in the lowest level, wheels are locked, alarm is on, side rails x2 are up, and call light is within reach. Will continue to monitor.
[2020-01-07] MEDS: TAMSULOSIN 0.4 MG CAP.SR.24H PO SCH (21:13)
[2020-01-07] MEDS: MIRTAZAPINE 15 MG TABLET PO SCH (21:13)
[2020-01-08] VITALS (9 sets, daily range): BP systolic 128–168; BP diastolic 51–91
[2020-01-08] MEDS: CLONIDINE HCL 0.1 MG TABLET PO PRN (01:01)
--- NOTE | 2020-01-08 01:01 | NUR ---
Patient BP 168/91. Administered PRN Catapres per MD order. Will continue to monitor.
[2020-01-08] MEDS: IPRATROPIUM NEB FS 0.5 MG/2.5 ML AMPUL.NEB IH PRN ×2 (01:23→17:39)
[2020-01-08 06:36] LABS: BASOPHILS % (AUTO) 0.6 % (0.0-2.0); EOSINOPHILS % (AUTO) 13.5 % (0.0-6.0); HEMATOCRIT 28 % (39-51); HEMOGLOBIN 9.3 g/dL (13.5-17.5); LYMPHOCYTES # (AUTO) 0.8 /CMM (0.8-4.8); MEAN CORPUSCULAR HGB CONC 34 g/dl (31.0-36.0); MEAN CORPUSCULAR VOLUME 93 fL (80-96); MONOCYTES # (AUTO) 0.6 /CMM (0.1-1.30); MONOCYTES % (AUTO) 15.3 % (2.0-12.0); NEUTROPHILS # (AUTO) 2.1 /CMM (1.8-8.9); NEUTROPHILS % (AUTO) 51.6 % (43.0-81.0); PLATELET COUNT (AUTO) 175 /CMM (150-450); RED BLOOD CELL COUNT(AUTO) 2.95 MIL/uL (4.5-6.0); WHITE BLOOD COUNT (AUTO) 4.2 K/uL (4.3-11.0)
--- NOTE | 2020-01-08 06:48 | NUR ---
RN CLOSING NOTE: Patient in bed sleeping comfortably. Patient shows no signs of SOB or acute respiratory distress. All needs were taken care of. Safety precaution is maintained, bed is in the lowest level, wheels are locked, alarm is on, side rails x2 are up, and call light is within reach. Will endorse to next shift.
[2020-01-08 07:03] LABS: CALCIUM, SERUM 9.2 mg/dL (8.5-10.1); CARBON DIOXIDE 22 mmol/L (21-32); CHLORIDE 113 mmol/L (98-107); CREATININE 1.6 mg/dL (0.6-1.3); GLUCOSE 113 mg/dL (74-106); SODIUM SERUM 143 mmol/L (136-145); UREA NITROGEN, BLOOD 21 mg/dL (7-18)
--- NOTE | 2020-01-08 07:40 | NUR ---
MS RN OPENING NOTES Bedside endorsement done. Patient is in bed resting. A/o x1, mainly non-verbal as per previous shift RN report. Breathing even and unlabored on room air, no respiratory distress. On tele monitoring w/ reading of SR, hr in the low- to mid 60's, no cardiac distress noted. S/p bilateral nephrostomy on 01/04, tea-colored output as per previous report. IV site on right hand #20, intact and patent, IVF of NS @ 75mL/hr. Safety precaution is in place: bed locked and on lowest position, side rails up x2 , call light within reach. Will continue to monitor.
[2020-01-08] MEDS: PANTOPRAZOLE 40 MG TABLET.DR PO SCH (08:15)
[2020-01-08] MEDS: IV NS 0.9% 1,000 ML IV PRN ×2 (08:19→19:24)
[2020-01-08] MEDS: ASPIRIN 81 MG TAB.CHEW PO SCH (08:43)
[2020-01-08] MEDS: MUPIROCIN OINT 2% 22 GM TUBE NS SCH ×2 (08:43→16:31)
[2020-01-08] MEDS: LEVOTHYROXINE SODIUM 75 MCG TABLET PO SCH (08:44)
[2020-01-08] MEDS: QUETIAPINE FUMARATE 25 MG TABLET PO SCH ×2 (08:44→21:10)
[2020-01-08] MEDS: ACIDOPHILUS/BULGARICUS 1 EACH TAB.CHEW PO SCH (08:45)
[2020-01-08] MEDS: METOPROLOL TARTRATE 25 MG TABLET PO SCH ×2 (08:45→16:32)
[2020-01-08] MEDS: hydrALAZINE HCL 50 MG TABLET PO SCH ×3 (08:45→16:32)
[2020-01-08] MEDS: HEPARIN SODIUM, PORCINE 5000 UNITS/1 ML VIAL SQ SCH ×2 (08:50→16:19)
--- NOTE | 2020-01-08 15:17 | NUR ---
RN NOTES PATIENT WAS SEEN BY KI BURGOS, AND WAS INFORMED TO ASK WATER PUMP SERVICER IN AM IF PATIENT IS OKAY FOR D/C.
[2020-01-08] MEDS: CEFEPIME 2 GM in IV D5W 100 ML IV SCH (16:30)
--- NOTE | 2020-01-08 17:53 | NUR ---
RN NOTES RT CALLED FOR PATIENT'S BREATHING TREATMENT. NOTED W/ POSITIVE EFFECT. PATIENT BREATHING IS EVEN AND UNLABORED.
--- NOTE | 2020-01-08 18:48 | NUR ---
MS RN CLOSING NOTES Patient is in bed resting, awake and responsive. A/o x1, mumbles Rwandan words, but unable to carry out meaningful conversation. Breathing even and unlabored, on O2 at 2lpm via nc, no respiratory distress noted. Continues to be on tele monitoring w/ reading of SR, hr in the 60's, no cardiac distress. Noted bilateral nephrostomy, draining sero-sanguineous drainage, no clumps noted. As per KI Carrillo, current type of drainage is to be expected. Output monitored and recorded. IV site on right hand #20, intact and patent, IVF of NS @ 75mL/hr, infusing well. Repositioned during the shift and checked circulation secondary to bilateral wrist restraints. Safety precautions maintained: bed locked and on lowest position, side rails up x2 , call light within reach. Will endorse to manufacturing supervisor 2nd shift RN for mary.
--- NOTE | 2020-01-08 19:51 | NUR ---
RN OPENING NOTES PATIENT RECEIVED RESTING IN BED A/O X 1. ON 2L OF O2 WITH BREATHING EVEN AND UNLABORED, NO SOB NOTED. NO SIGNS OF ACUTE DISTRESS. NO SIGNS OF PAIN OR DISCOMFORT. BILATERAL SOFT WRIST RESTRAINTS IN PLACE WITH SKIN INTACT, NO REDNESS, PULSE PRESENT. R AND LEFT NEPHROSTOMY NOTED AND IN PLACE DRAINING SEROSANGUINEOUS OUTPUT. IV LOCATED ON R HAND #20 RUNNING NS @ 75 ML/HR. SAFETY PRECAUTIONS IN PLACE WITH BED IN LOWEST POSITION, CALL LIGHT WITHIN REACH, BREAKS ON, SIDE RAILS UP. WILL CONTINUE TO MONITOR THROUGHOUT THE NIGHT.
[2020-01-08] MEDS: TAMSULOSIN 0.4 MG CAP.SR.24H PO SCH (21:10)
[2020-01-08] MEDS: MIRTAZAPINE 15 MG TABLET PO SCH (21:11)
[2020-01-09] VITALS: BP 135/66
[2020-01-09 04:00] VITALS: BP 150/85
--- NOTE | 2020-01-09 06:50 | NUR ---
RN CLOSING NOTES PATIENT IN BED RESTING A/O X 2. ON 2L OF O2 WITH BREATHING EVEN AND UNLABORED, NO SOB NOTED. NO SIGNS OF ACUTE DISTRESS. NO SIGNS OF PAIN OR DISCOMFORT. TELE MONITOR READING SR. NEPHROSTOMY ON RIGHT SIDE OF ABDOMEN DRAINED 250 SEROSANGUINEOUS OUTPUT AND LEFT SIDE NEPHROSTOMY DRAINED 350 SEROSANGUINEOUS OUTPUT. BILATERAL SOFT WRIST RESTRAINTS IN PLACE WITH SKIN INTACT, NO REDNESS, PULSE PRESENT. IV LOCATED ON R HAND #20 RUNNING NS @ 75 ML/HR. SAFETY PRECAUTIONS IN PLACE WITH BED IN LOWEST POSITION, CALL LIGHT WITHIN REACH, BREAKS ON, SIDE RAILS UP. ALL NEEDS ATTENDED TO. PATIENT KEPT CLEAN AND DRY THROUGHOUT THE NIGHT. WILL ENDORSE TO ONCOMING SHIFT ABOUT JOANIE.
[2020-01-09] MEDS: IV NS 0.9% 1,000 ML IV PRN (07:17)
[2020-01-09 07:26] LABS: CALCIUM, SERUM 9.5 mg/dL (8.5-10.1); CARBON DIOXIDE 21 mmol/L (21-32); CHLORIDE 111 mmol/L (98-107); CREATININE 1.7 mg/dL (0.6-1.3); GLUCOSE 96 mg/dL (74-106); POTASSIUM 3.6 mmol/L (3.5-5.1); SODIUM SERUM 143 mmol/L (136-145); UREA NITROGEN, BLOOD 17 mg/dL (7-18)
--- NOTE | 2020-01-09 07:41 | NUR ---
ARTIFACTS CONSERVATOR NOTE PATIENT IN BED RESTING COMFORTABLY. PATIENT IN NO ACUTE DISTRESS. NO SOB NOTED. PATIENT BREATHING IS EVEN AND UNLABORED. PATIENT WITH BILATERAL SOFT WRIST RESTRAINTS. PATIENT NOTED WITH GOOD CIRCULATION. PATIENT HOB IS ELEVATED. PATIENT SAFETY PRECAUTIONS IN PLACE. PATIENT BED ALARM IS ON. PATIENT BED IS LOCKED AND IN LOWEST POSITION. CALL LIGHT WITHIN REACH. WILL CONTINUE TO MONITOR.
[2020-01-09] MEDS: PANTOPRAZOLE 40 MG TABLET.DR PO SCH (08:13)
[2020-01-09] MEDS: LEVOTHYROXINE SODIUM 75 MCG TABLET PO SCH (08:13)
[2020-01-09] MEDS: QUETIAPINE FUMARATE 25 MG TABLET PO SCH (08:31)
[2020-01-09] MEDS: hydrALAZINE HCL 50 MG TABLET PO SCH ×3 (08:31→16:17)
[2020-01-09] MEDS: ASPIRIN 81 MG TAB.CHEW PO SCH (08:31)
[2020-01-09] MEDS: METOPROLOL TARTRATE 25 MG TABLET PO SCH ×2 (08:31→16:17)
[2020-01-09] MEDS: ACIDOPHILUS/BULGARICUS 1 EACH TAB.CHEW PO SCH (08:31)
[2020-01-09] MEDS: HEPARIN SODIUM, PORCINE 5000 UNITS/1 ML VIAL SQ SCH ×2 (08:32→16:15)
[2020-01-09] MEDS: MUPIROCIN OINT 2% 22 GM TUBE NS SCH ×2 (08:32→16:20)
--- NOTE | 2020-01-09 08:32 | NUR ---
STOCK GRADER NOTE HELD HEPARIN ORDERED IN AM DUE TO LEFT NEPHROSTOMY TUBE DRAINING SEROSANGUINEOUS FLUID. WILL CONTINUE TO MONITOR.
[2020-01-09] MEDS ORDERED: ASPI-1169 PO (15:01)
[2020-01-09] MEDS ORDERED: ACET325T53 PO (15:01)
[2020-01-09] MEDS ORDERED: MUPI22OI7 NS (15:01)
--- NOTE | 2020-01-09 16:14 | NUR ---
MS RN NOTE WILL HOLD HEPARIN ORDERED IN PM DOSE DUE TO LEFT NEPHROSTOMY TUBE DRAINING SEROSANGUINEOUS FLUID. WILL CONTINUE TO MONITOR.
[2020-01-09 16:17] VITALS: BP 126/69
--- NOTE | 2020-01-09 18:08 | NUR ---
STICK WELDER NOTE PATIENT MEDICALLY CLEARED FOR DISCHARGE. DC INSTRUCTIONS PROVIDED, PATIENT UNABLE TO COMPREHEND. PATIENT ID BAND REMOVED. IV REMOVED. PATIENT BELONGINGS LIST SIGNED BY TWO NURSES WELL DC PAPERWORK. PATIENT KEPT CLEAN, DRY, AND COMFORTABLE THROUGHOUT SHIFT. PATIENT NOT ON RESTRAINTS. GOOD CIRCULATION NOTED. PATIENT SKIN ASSESSED, NO NEW SKIN BREAKDOWN NOTED. BILATERAL NEPHROSTOMY TUBES PATENT AND INTACT DRAINING SEROSANGUINEOUS FLUID. REPORT GIVEN TO WILLIE GUEVARA AT [facility]. PATIENT GOING BY AMBULANCE TO SNF. MD AWARE OF DISCHARGE.
== END 2020-01-09 18:10 | DRG 853 ==
LOC: ER 09:43 → TELE2 11:56 → TELE 01-04 11:59 → MED 01-09 12:02
PROVIDERS: ADMIT Nurse Practitioner Acute Care; ATTEND Nurse Practitioner Acute Care
PROC: 0T143JD Bypass Left Kidney Pelvis to Cutaneous with Synthetic Substitute, Percutaneous Approach (ICD-10-PCS; principal; 2020-01-05)
PROC: 0T133JD Bypass Right Kidney Pelvis to Cutaneous with Synthetic Substitute, Percutaneous Approach (ICD-10-PCS; 2020-01-05)
DX: A41.9 Sepsis, unspecified organism (principal); I21.A1 Myocardial infarction type 2; N17.0 Acute kidney failure with tubular necrosis; N13.6 Pyonephrosis; D68.69 Other thrombophilia; N13.8 Other obstructive and reflux uropathy; E87.2 Acidosis; E87.1 Hypo-osmolality and hyponatremia; T83.021A Displacement of indwelling urethral catheter, initial encounter; R65.20 Severe sepsis without septic shock; I12.9 Hypertensive chronic kidney disease with stage 1 through stage 4 chronic kidney disease, or unspecified chronic kidney disease; G30.9 Alzheimer's disease, unspecified; I25.10 Atherosclerotic heart disease of native coronary artery without angina pectoris; N18.9 Chronic kidney disease, unspecified; K57.30 Diverticulosis of large intestine without perforation or abscess without bleeding; N35.919 Unspecified urethral stricture, male, unspecified site; E11.65 Type 2 diabetes mellitus with hyperglycemia; E03.9 Hypothyroidism, unspecified; E78.5 Hyperlipidemia, unspecified; Z79.4 Long term (current) use of insulin; Z74.01 Bed confinement status; Z87.440 Personal history of urinary (tract) infections; Z93.6 Other artificial openings of urinary tract status; J44.9 Chronic obstructive pulmonary disease, unspecified; F32.9 Major depressive disorder, single episode, unspecified; F41.9 Anxiety disorder, unspecified; F02.80 Dementia in other diseases classified elsewhere, unspecified severity, without behavioral disturbance, psychotic disturbance, mood disturbance, and anxiety; E11.22 Type 2 diabetes mellitus with diabetic chronic kidney disease; K21.9 Gastro-esophageal reflux disease without esophagitis; D63.8 Anemia in other chronic diseases classified elsewhere; N40.1 Benign prostatic hyperplasia with lower urinary tract symptoms; K40.90 Unilateral inguinal hernia, without obstruction or gangrene, not specified as recurrent; Q54.9 Hypospadias, unspecified; Z22.322 Carrier or suspected carrier of Methicillin resistant Staphylococcus aureus; Y84.8 Other medical procedures as the cause of abnormal reaction of the patient, or of later complication, without mention of misadventure at the time of the procedure; Y92.129 Unspecified place in nursing home as the place of occurrence of the external cause; Y73.8 Miscellaneous gastroenterology and urology devices associated with adverse incidents, not elsewhere classified; Z86.14 Personal history of Methicillin resistant Staphylococcus aureus infection
CPT/HCPCS: 36415; 71045-TC; 75989; 75989-TC; 80048-TC; 80053-TC; 80061-TC; 80076-TC; 80202-TC; 81001; 82570-TC; 83605-TC; 83735-TC; 84100-TC; 84155-TC; 84300-TC; 84443-TC; 84484-TC; 85025-TC; 85610-TC; 85730-TC; 87040-TC; 87081-TC; 87086-TC; 92526; 92611-TC; 93307-TC; 94799-TC; 97112-TC; 97530-TC; A4215; A6403; G0378; J0692; J1644; J2250; J2270; J2310; J2543; J3010; J3370; J7030; J7060; U0003

== ENCOUNTER 2020-04-03 06:05 | Inpatient (IN) | payer MEDICARE, OTHER ==
[~2020-04-03] VITALS: Ht 167.6 cm; Wt 50.8 kg
[~2020-04-03 06:05] MED LIST changes: -ACET-868 PO; +ACET325T53 PO; +ALBU0.633 IH; -ALBU18HF2 INH; -APIX2.5T PO; +HYDR-4077 PO; +IPRA0.2S9 IH; -LOSA50TA39 PO; +MUPI22OI7 NS; +NITR1OIN2 TD; +PANT40TA2 PO
--- NOTE | 2020-04-03 06:07 | NUR ---
ARRON FROM [facility] C/O COFFEE GROUND EMESIS TESTED NEG COVID 03/29/20, PT TO BED 2, ALERT, NON VERBAL, NOT IN ACUTE DISTRESS, NO SOB/CP. PT NOTED TACHY, WARM TO TOUCH, PIV STARTED, BLOOD COLLECTED, PENDING ER PROVIDER LORE
[2020-04-03] MEDS ORDERED: ACETAMINOPHEN 650 MG/SUPP.RECT RC ONE ×2 (06:29→06:30)
[2020-04-03] MEDS ORDERED: OCTREOTIDE 100 MCG/ML VIAL ONE (06:30)
[2020-04-03] MEDS ORDERED: PANTOPRAZOLE 80 MG in IV NS 0.9% 100 ML IV ONE (06:30)
[2020-04-03] MEDS ORDERED: PANTOPRAZOLE 40 MG VIAL ONE (06:30)
[2020-04-03] MEDS ORDERED: OCTREOTIDE 50 MCG/ML AMPUL IV ONE (06:30)
[2020-04-03] MEDS ORDERED: IV NS 0.9% 1,000 ML BAG IV ONE (06:30)
[2020-04-03] MEDS ORDERED: OCTREOTIDE 1,250 MCG in IV NS 0.9% 250 ML IV ONE (06:30)
[2020-04-03] MEDS ORDERED: PANTOPRAZOLE 80 MG in IV NS 0.9% 500 ML IV ONE (06:30)
[2020-04-03 06:55] LABS: BASOPHILS % (AUTO) 0.1 % (0.0-2.0); HEMATOCRIT 35 % (39-51); HEMOGLOBIN 10.7 g/dL (13.5-17.5); LYMPHOCYTES # (AUTO) 0.6 /CMM (0.8-4.8); LYMPHOCYTES % (AUTO) 3.2 % (20.0-44.0); MEAN CORPUSCULAR HGB CONC 31 g/dl (31.0-36.0); MEAN CORPUSCULAR VOLUME 91 fL (80-96); MONOCYTES # (AUTO) 1.3 /CMM (0.1-1.30); MONOCYTES % (AUTO) 6.9 % (2.0-12.0); NEUTROPHILS # (AUTO) 17.2 /CMM (1.8-8.9); NEUTROPHILS % (AUTO) 89.8 % (43.0-81.0); PLATELET COUNT (AUTO) 405 /CMM (150-450); RED BLOOD CELL COUNT(AUTO) 3.81 MIL/uL (4.5-6.0); WHITE BLOOD COUNT (AUTO) 19.2 K/uL (4.3-11.0)
[2020-04-03 07:04] LABS: CALCIUM, SERUM 10.5 mg/dL (8.5-10.1); CARBON DIOXIDE 21 mmol/L (21-32); CHLORIDE 104 mmol/L (98-107); CREATININE 6.2 mg/dL (0.6-1.3); GLUCOSE 314 mg/dL (74-106); POTASSIUM 5.4 mmol/L (3.5-5.1); SODIUM SERUM 140 mmol/L (136-145)
[2020-04-03 07:11] LABS: UREA NITROGEN, BLOOD 82 mg/dL (7-18)
--- NOTE | 2020-04-03 07:16 | NUR ---
PER RECORDS, PT HAS BILAT NEPHROSTOMY TUBES, UROLOGIST UNABLE TO INSERT F/C. NO URINE SPECIMEN OBTAINED
[2020-04-03 07:24] LABS: ALKALINE PHOSPHATASE 168 U/L (46-116); ASPARTATE AMINOTRANSFERASE 12 U/L (15-37); BILIRUBIN,DIRECT 0.3 mg/dL (0.0-0.2); BILIRUBIN,TOTAL 0.7 mg/dL (0.2-1.0)
[2020-04-03 07:25] LABS: ALANINE AMINOTRANSFERASE 17 U/L (12-78); ALBUMIN 2.4 g/dL (3.4-5.0); B-TYPE NATRIURETIC PEPTIDE 3715 PG/ML (0-125); TOTAL PROTEIN, SERUM 9.3 g/dL (6.4-8.2)
[2020-04-03] MEDS ORDERED: NYST15CR TP (08:03)
[2020-04-03] MEDS ORDERED: ASPI-1169 PO (08:03)
--- NOTE | 2020-04-03 08:09 | NUR ---
COVID SWAB SENT TO LAB.
[2020-04-03 08:22] LABS: OCCULT BLOOD STOOL NEGATIVE (NEGATIVE)
--- NOTE | 2020-04-03 08:30 | NUR ---
PAGED [facility].
--- NOTE | 2020-04-03 10:37 | NUR ---
PT ASLEEP, EASILY AWAKEN BY VERBAL STIMULI & WILL GO BACK TO SLEEP. RR EVEN & UNLABORED. NAD NOTED AT THIS TIME. WILL CONT TO MONITOR.
--- NOTE | 2020-04-03 12:36 | NUR ---
PT STABLE, RR EVEN & UNLABORED. NAD NOTED AT THIS TIME. WILL CONT TO MONITOR.
[2020-04-03] MEDS ORDERED: ONDANSETRON HCL/PF 4 MG/2 ML VIAL IVP PRN (14:30)
[2020-04-03] MEDS ORDERED: MAGNESIUM HYDROXIDE 30 ML UDC PO PRN (14:30)
[2020-04-03] MEDS ORDERED: ACETAMINOPHEN 325 MG TABLET PO PRN (14:30)
[2020-04-03] MEDS ORDERED: ZOLPIDEM TARTRATE 5 MG TABLET PO PRN (14:30)
[2020-04-03] MEDS ORDERED: MAG HYDROX/AL HYDROX/SIMETH 30 ML UDC PO PRN (14:30)
[2020-04-03] MEDS ORDERED: Z GUARD REMEDY 2 OZ OINT TP PRN (14:30)
[2020-04-03] MEDS ORDERED: HYDROCODONE/APAP 5/325MG TABLET PO PRN (14:30)
--- NOTE | 2020-04-03 15:23 | NUR ---
PT STABLE, RR EVEN & UNLABORED. PT SEEN & EVAL'D BY DR. WATSON. WILL CONT TO MONITOR.
--- NOTE | 2020-04-03 15:23 | NUR ---
NO RECTAL BLEEDING NOTED. WILL CONT TO MONITOR.
[2020-04-03 15:46] LABS: COLOR,URINE YELLOW (YELLOW)
[2020-04-03 15:47] LABS: PH,URINE 8.5 (5.0-8.0); PROTEIN,URINE 4+ mg/dl (NEGATIVE)
[2020-04-03 15:48] LABS: UGLUCOSE TRACE mg/dL (NEGATIVE)
[2020-04-03 15:49] LABS: BILIRUBIN,URINE 1+ (NEGATIVE)
[2020-04-03 15:50] LABS: LEUKOCYTE ESTERASE ,URINE 1+ (NEGATIVE); NITRITE, URINE NEGATIVE (NEGATIVE); UROBILINOGEN,URINE 0.2 EU/dL (0.2)
[2020-04-03 16:00] LABS: RBC,URINE 0-2 /HPF (0-2)
[2020-04-03 16:01] LABS: BACTERIA,URINE 3+ /HPF (None Seen); SQUAMOUS EPITHELIAL CELL,UR 0-2 /HPF (None Seen); URINE AMORPHOUS PHOSPHATES Many /HPF (None Seen)
[2020-04-03 16:02] LABS: TRIPLE PHOSPHATE CRYSTAL,UR Moderate /HPF (None Seen)
[2020-04-03] MEDS: CEFEPIME 1 GM in IV D5W 50 ML IV SCH (18:38)
--- NOTE | 2020-04-03 19:45 | NUR ---
REPORT REC'D. PT HERE FOR UGIB, NO EPISODES OF VOMITTING NOTED. PT NON VERBAL, AAOX0, AT BASELINE. NOT IN ANY DISTRESS, NO SOB. VSS. WCTM
--- NOTE | 2020-04-03 23:36 | NUR ---
PT'S FAMILY CALLED: SPOKE TO PIETRO
[2020-04-04] MEDS ORDERED: FUROSEMIDE 40 MG/4 ML VIAL IV ONE
--- NOTE | 2020-04-04 | NUR ---
UNABLE TO GIVE KAYEXELATE, PT NPO. PT HERE FOR COFEE GROUND EMESIS. KI VILLA AWARE, ORDER WAS FROM DR. PETERS
[2020-04-04] MEDS: IV D5/0.45 NACL 1,000 ML IV PRN ×2 (04:00→16:55)
[2020-04-04 04:47] LABS: BASOPHILS % (AUTO) 0.2 % (0.0-2.0); EOSINOPHILS % (AUTO) 0.1 % (0.0-6.0); HEMATOCRIT 30 % (39-51); HEMOGLOBIN 9.6 g/dL (13.5-17.5); LYMPHOCYTES # (AUTO) 0.3 /CMM (0.8-4.8); MEAN CORPUSCULAR HGB CONC 32 g/dl (31.0-36.0); MEAN CORPUSCULAR VOLUME 90 fL (80-96); MONOCYTES # (AUTO) 0.7 /CMM (0.1-1.30); MONOCYTES % (AUTO) 4.6 % (2.0-12.0); NEUTROPHILS % (AUTO) 93.1 % (43.0-81.0); PLATELET COUNT (AUTO) 288 /CMM (150-450); RED BLOOD CELL COUNT(AUTO) 3.36 MIL/uL (4.5-6.0)
[2020-04-04 05:12] LABS: ALANINE AMINOTRANSFERASE 15 U/L (12-78); ALBUMIN 2.1 g/dL (3.4-5.0); ALKALINE PHOSPHATASE 150 U/L (46-116); ASPARTATE AMINOTRANSFERASE 9 U/L (15-37); BILIRUBIN,TOTAL 0.4 mg/dL (0.2-1.0); CALCIUM, SERUM 9.8 mg/dL (8.5-10.1); CARBON DIOXIDE 21 mmol/L (21-32); CHLORIDE 108 mmol/L (98-107); CREATININE 6.4 mg/dL (0.6-1.3); GLUCOSE 332 mg/dL (74-106); MAGNESIUM 2.5 mg/dL (1.8-2.4); PHOSPHORUS 4.8 mg/dL (2.5-4.9); POTASSIUM 5.6 mmol/L (3.5-5.1); SODIUM SERUM 143 mmol/L (136-145); TOTAL PROTEIN, SERUM 8.6 g/dL (6.4-8.2)
[2020-04-04] MEDS ORDERED: FUROSEMIDE 40 MG/4 ML VIAL ONE ×2 (05:28→11:20)
[2020-04-04 05:36] LABS: CHOLESTEROL 107 mg/dL (<200); CREATINE KINASE, TOTAL 45 U/L (39-308); HDL CHOLESTEROL 14 mg/dL (40-60); LDL 35 mg/dL (0-99); THYROID STIMULATING HORMONE 0.265 uIU/mL (0.358-3.74); TRIGLYCERIDES 220 mg/dL (30-150)
[2020-04-04 05:50] LABS: UREA NITROGEN, BLOOD 97 mg/dL (7-18)
--- NOTE | 2020-04-04 06:00 | NUR ---
NO ACUTE EVENTS NOTED. VSS. NAD .WCTM
--- NOTE | 2020-04-04 09:10 | NUR ---
PT TO RADIOLOGY FOR CT ABDOMEN VIA [facility].
--- NOTE | 2020-04-04 09:16 | NUR ---
DAUGHTER PIETRO MURPHY [ ] CALLED, UPDATED HER ON PT'S STATUS.
--- NOTE | 2020-04-04 09:28 | NUR ---
NOTED URINE LEAKAGE TO BILAT NEPROSTOMY SITE. PT PROVIDED W BED BATH, DIAPER CHANGED. PT IS AFEBRILE. STABLE VITALS. WILL CONTINUE TO MONITOR.
[2020-04-04] MEDS ORDERED: FUROSEMIDE 100 MG/10 ML VIAL IV ONE (10:30)
[2020-04-04] MEDS ORDERED: SODIUM POLYSTYRENE SULFONATE 15 G/60 ML BOTTLE PO ONE ×2 (10:30)
[2020-04-04] MEDS ORDERED: SODIUM POLYSTYRENE SULFONATE 15 G/60 ML BOTTLE ONE (11:22)
[2020-04-04] MEDS ORDERED: FENTANYL PF 250MCG/5ML AMPUL IV ONE (12:30)
[2020-04-04] MEDS ORDERED: NALOXONE PREFILLED SYRINGE 2 MG/2 ML SYRINGE IV ONE (12:30)
[2020-04-04] MEDS ORDERED: MIDAZOLAM HCL 5MG/ML VIAL 25 MG/5 ML VIAL IV ONE (12:30)
--- NOTE | 2020-04-04 12:57 | NUR ---
REPORT GIVEN TO MILTON GUEVARA. PT AWAITING TRANSFER TO FLOOR.
--- NOTE | 2020-04-04 13:22 | NUR ---
PT TO RADIOLOGY FOR CT GUIDED NEPHROSTOMY TUBE INSERTION.
--- NOTE | 2020-04-04 13:33 | NUR ---
ROOM 311 - 1 IS AVAILABLE. NURSE ROSE NEEDS REPORT
[2020-04-04 13:36] LABS: CALCIUM, SERUM 9.7 mg/dL (8.5-10.1); CARBON DIOXIDE 20 mmol/L (21-32); CHLORIDE 107 mmol/L (98-107); CREATININE 6.4 mg/dL (0.6-1.3); POTASSIUM 5.4 mmol/L (3.5-5.1); SODIUM SERUM 141 mmol/L (136-145)
[2020-04-04 13:38] LABS: GLUCOSE 407 mg/dL (74-106)
[2020-04-04 13:39] LABS: UREA NITROGEN, BLOOD 105 mg/dL (7-18)
[2020-04-04 16:00] VITALS: BP 122/74
--- NOTE | 2020-04-04 16:00 | NUR ---
transported to telemetry floor. report was given to francis parker.
--- NOTE | 2020-04-04 16:18 | NUR ---
MS/drilling field professional New admission from emergency room with diagnosis of GI bleed. Fully admitted, pictures taken, wound consult triggered. Placed on isoflex mattress, sacral wound dressed with mepilex. Orders noted and carried out. Safety measures in place, bed in low setting, side rails X3 in upright position, bed alarm switched on. Call light within reach, will continue to monitor and ensure safety.
[2020-04-04 16:25] VITALS: BP 122/74
[2020-04-04] MEDS: CEFEPIME 1 GM in IV D5W 50 ML IV SCH (16:56)
--- NOTE | 2020-04-04 18:00 | NUR ---
MS/RN Nephrostomy tubes Nephrostomy tubes emptied: Left - 25ml Right - 150ml
--- NOTE | 2020-04-04 18:25 | NUR ---
MS/RN End note Patient remains in stable condition, will endorse to motor vehicle technician.
--- NOTE | 2020-04-04 19:40 | NUR ---
RN NOTES PT RECEIVED IN BED ASLEEP BUT EASILY WOKEN UP. PT ON 2LPM OF OXYGEN TOLERATING WELL. NO RESPIRATORY DISTRESS NOTED. NO PAIN OR DISCOMFORT NOTED AT THIS TIME. BILATERAL NEPHROSTOMY TUBES NOTED INTACT.ALL NURSING NEEDS MET AT THIS TIME. CALL LIGHT WITHIN REACH. SAFETY PRECAUTIONS WITHIN REACH. BED [id number] IN LOWEST POSITION BILATERAL SIDE RAILS UP. WILL CONTINUE TO MONITOR.
[2020-04-04 20:00] VITALS: BP 124/75
[2020-04-04] MEDS: DOCUSATE SODIUM 100 MG CAPSULE PO SCH (20:30)
[2020-04-04] MEDS ORDERED: BISACODYL (5 MG) 5 MG TABLET.DR PO PRN (20:30)
--- NOTE | 2020-04-04 20:40 | NUR ---
RN NOTES ANYA MIMS PT IS NPO
[2020-04-05] VITALS: BP 135/61
[2020-04-05 04:00] VITALS: BP 138/60
--- NOTE | 2020-04-05 07:20 | NUR ---
MS RN NOTES RECEIVED PATIENT IN BED ALERT TO SELF. NO ACUTE DISTRESS NOTED. BREATHING UNLABORED. NO SOB NOTED. IV ACCESS PATENT AND INTACT, NO REDNESS, NO SWELLING NOTED. SAFETY MEASURES IN PLACE. CALL LIGHT WITHIN REACH. WILL CONTINUE TO MONITOR ACCORDINGLY.
[2020-04-05 07:48] LABS: BASOPHILS % (AUTO) 0.1 % (0.0-2.0); EOSINOPHILS % (AUTO) 0.1 % (0.0-6.0); HEMATOCRIT 29 % (39-51); HEMOGLOBIN 9.3 g/dL (13.5-17.5); LYMPHOCYTES # (AUTO) 0.4 /CMM (0.8-4.8); LYMPHOCYTES % (AUTO) 5.6 % (20.0-44.0); MEAN CORPUSCULAR HGB CONC 32 g/dl (31.0-36.0); MEAN CORPUSCULAR VOLUME 89 fL (80-96); MONOCYTES # (AUTO) 0.5 /CMM (0.1-1.30); MONOCYTES % (AUTO) 6.9 % (2.0-12.0); NEUTROPHILS # (AUTO) 6.8 /CMM (1.8-8.9); NEUTROPHILS % (AUTO) 87.3 % (43.0-81.0); PLATELET COUNT (AUTO) 233 /CMM (150-450); RED BLOOD CELL COUNT(AUTO) 3.25 MIL/uL (4.5-6.0); WHITE BLOOD COUNT (AUTO) 7.8 K/uL (4.3-11.0)
[2020-04-05 08:00] VITALS: BP 137/67
[2020-04-05 08:05] LABS: CALCIUM, SERUM 9.9 mg/dL (8.5-10.1); CARBON DIOXIDE 23 mmol/L (21-32); CHLORIDE 108 mmol/L (98-107); CREATININE 5.7 mg/dL (0.6-1.3); MAGNESIUM 3.1 mg/dL (1.8-2.4); PHOSPHORUS 4.6 mg/dL (2.5-4.9); POTASSIUM 5.4 mmol/L (3.5-5.1); SODIUM SERUM 141 mmol/L (136-145)
[2020-04-05 08:06] LABS: PTH, INTACT 107 pg/mL (15-65)
[2020-04-05 08:21] LABS: GLUCOSE 434 mg/dL (74-106)
[2020-04-05 08:22] LABS: UREA NITROGEN, BLOOD 112 mg/dL (7-18)
--- NOTE | 2020-04-05 08:50 | NUR ---
MS RN NOTES BUN 112, GLUCOSE 434 RESULTED ,RELAYED TO DR ALEKSEY MARTIN, NO NEW ORDER MADE AT THIS TIME.
[2020-04-05] MEDS: DOCUSATE SODIUM 100 MG CAPSULE PO SCH ×2 (09:00→17:00)
[2020-04-05] MEDS ORDERED: FUROSEMIDE 100 MG/10 ML VIAL IV ONE (09:00)
--- NOTE | 2020-04-05 09:38 | NUR ---
WOUND CARE CONSULT: PT PRESENTS WITH DEEP TISSUE INJURY IN EVOLUTION TO SACRUM, PRESENT ON ADMISSION. RECOMMEND SURGICAL CONSULT. DR RODRIGUEZ NOTIFIED OF CONSULT REQUEST. SKIN PROTECTION RECOMMENDATIONS DISCUSSED WITH NURSING STAFF. IN AGREEMENT WITH PLAN OF CARE. [facility]. Addendum: 04/05/20 at 0940 by DENIA MERRITT WNDNU Amended: Links added.
[2020-04-05] MEDS ORDERED: DEXTROSE 50%-WATER 50 ML DISP.SYRIN IV PRN (11:30)
--- NOTE | 2020-04-05 11:32 | NUR ---
MS RN NOTES PATIENT SEEN AND EVALUATED BY DR ALEKSEY MARTIN WITH NEW ORDERS MADE, NOTED AND CARRIED OUT
[2020-04-05] MEDS: IV D5/0.45 NACL 1,000 ML IV PRN (11:48)
[2020-04-05] MEDS: BLOOD SUGAR DIAGNOSTIC 1 EACH STRIP IN SCH ×3 (12:23→22:05)
[2020-04-05] MEDS: INSULIN REGULAR, HUMAN 100 UNIT/ML 3 ML VIAL SQ PRN ×3 (12:27→22:08)
[2020-04-05 15:07] LABS: *SPE A/G RATIO 0.4 (0.7-1.7); *SPE ALBUMIN 2.2 g/dL (2.9-4.4); *SPE ALPHA-1-GLOBULIN 0.5 g/dL (0.0-0.4); *SPE ALPHA-2-GLOBULIN 1.4 g/dL (0.4-1.0); *SPE BETA GLOBULIN 1.1 g/dL (0.7-1.3); *SPE GLOBULIN, TOTAL 5.1 g/dL (2.2-3.9); *SPE M-SPIKE Not Observed g/dL (Not Observed); *SPEGAMMA GLOBULIN 2.1 g/dL (0.4-1.8)
[2020-04-05] MEDS: CEFEPIME 1 GM in IV D5W 50 ML IV SCH (17:52)
--- NOTE | 2020-04-05 18:52 | NUR ---
MS RN NOTES PATIENT IN BED ALERT TO SELF. NO ACUTE DISTRESS NOTED. BREATHING UNLABORED. NO SOB NOTED. IV ACCESS PATENT AND INTACT, NO REDNESS, NO SWELLING NOTED.NEEDS ATTENDED AND ANTICIPATED. KEPT, CLEAN DRY AND COMFORTABLE. SAFETY MEASURES IN PLACE. CALL LIGHT WITHIN REACH. WILL ENDORSE TO NIGHT NURSE FOR CONTINUITY OF CARE.
--- NOTE | 2020-04-05 19:36 | NUR ---
RN NOTES PATIENT IN BED ALERT TO SELF. NO ACUTE DISTRESS NOTED. BREATHING UNLABORED. NO SOB NOTED. IV ACCESS PATENT AND INTACT, NO REDNESS, NO SWELLING NOTED.NEEDS ATTENDED AND ANTICIPATED AT THIS TIME.. SAFETY MEASURES IN PLACE. CALL LIGHT WITHIN REACH. WILL CONTINUE TO MONITOR.
[2020-04-05 19:47] LABS: BASOPHILS % (AUTO) 0.1 % (0.0-2.0); EOSINOPHILS % (AUTO) 0.3 % (0.0-6.0); HEMATOCRIT 30 % (39-51); HEMOGLOBIN 9.5 g/dL (13.5-17.5); LYMPHOCYTES # (AUTO) 0.5 /CMM (0.8-4.8); LYMPHOCYTES % (AUTO) 6.3 % (20.0-44.0); MEAN CORPUSCULAR HGB CONC 32 g/dl (31.0-36.0); MEAN CORPUSCULAR VOLUME 89 fL (80-96); MONOCYTES # (AUTO) 0.7 /CMM (0.1-1.30); MONOCYTES % (AUTO) 9.3 % (2.0-12.0); NEUTROPHILS # (AUTO) 6.7 /CMM (1.8-8.9); PLATELET COUNT (AUTO) 250 /CMM (150-450); RED BLOOD CELL COUNT(AUTO) 3.32 MIL/uL (4.5-6.0)
[2020-04-05 20:46] VITALS: BP 124/67
[2020-04-06] MEDS: IV D5/0.45 NACL 1,000 ML IV PRN (01:03)
[2020-04-06] MEDS: BLOOD SUGAR DIAGNOSTIC 1 EACH STRIP IN SCH ×4 (06:21→22:16)
[2020-04-06] MEDS: INSULIN REGULAR, HUMAN 100 UNIT/ML 3 ML VIAL SQ PRN ×4 (06:25→22:22)
[2020-04-06 06:43] LABS: BASOPHILS % (AUTO) 0.2 % (0.0-2.0); EOSINOPHILS % (AUTO) 1.6 % (0.0-6.0); HEMATOCRIT 28 % (39-51); HEMOGLOBIN 9.1 g/dL (13.5-17.5); LYMPHOCYTES # (AUTO) 0.7 /CMM (0.8-4.8); MEAN CORPUSCULAR HGB CONC 32 g/dl (31.0-36.0); MEAN CORPUSCULAR VOLUME 89 fL (80-96); MONOCYTES # (AUTO) 0.7 /CMM (0.1-1.30); MONOCYTES % (AUTO) 10.1 % (2.0-12.0); NEUTROPHILS # (AUTO) 5.6 /CMM (1.8-8.9); NEUTROPHILS % (AUTO) 78.1 % (43.0-81.0); PLATELET COUNT (AUTO) 240 /CMM (150-450); RED BLOOD CELL COUNT(AUTO) 3.21 MIL/uL (4.5-6.0); WHITE BLOOD COUNT (AUTO) 7.2 K/uL (4.3-11.0)
--- NOTE | 2020-04-06 06:57 | NUR ---
RN NOTES PATIENT IN BED ALERT TO SELF. NO ACUTE DISTRESS NOTED. BREATHING UNLABORED. NO SOB NOTED. IV ACCESS PATENT AND INTACT, NO REDNESS, NO SWELLING NOTED.NEEDS ATTENDED AND ANTICIPATED AT THIS TIME. SAFETY MEASURES IN PLACE. CALL LIGHT WITHIN REACH. WILL CONTINUE TO MONITOR. WILL ENDORSE CARE TO DAY SHIFT.
--- NOTE | 2020-04-06 07:30 | NUR ---
RN MS NOTES PT IN BED, ASLEEP, EASY TO AROUSE, ALERT TO SELF, NO SIGN OF PAIN OR DISTRESS, CALL LIGHT WITHIN REACH, NEEDS ATTENDED.
[2020-04-06 08:00] VITALS: BP 169/80
[2020-04-06] MEDS: DOCUSATE SODIUM 100 MG CAPSULE PO SCH ×2 (08:55→16:17)
[2020-04-06 09:12] LABS: CALCIUM, SERUM 9.7 mg/dL (8.5-10.1); CARBON DIOXIDE 21 mmol/L (21-32); CHLORIDE 112 mmol/L (98-107); CREATININE 4.9 mg/dL (0.6-1.3); GLUCOSE 260 mg/dL (74-106); POTASSIUM 4.5 mmol/L (3.5-5.1); SODIUM SERUM 146 mmol/L (136-145)
[2020-04-06 09:22] LABS: UREA NITROGEN, BLOOD 107 mg/dL (7-18)
[2020-04-06] MEDS ORDERED: LACTULOSE 10 G/15 ML UDC (PYXIS) PO PRN (13:30)
[2020-04-06] MEDS ORDERED: GLUCERNA 1.2 1,000 ML BOTTLE NG PRN (15:00)
--- NOTE | 2020-04-06 15:12 | NUR ---
RN MS NOTES SEEN AND EXAMINED BY DR. MARTIN, ORDERED NGT, INSERTED BY HOME LIGHTING ADVISER, VERIFIED PLACEMENT BY CXR, MD ORDERED TO START LACTULOSE, TUBE FEEDING PER DIETARY RECOMMENDATION, NGT WATER FLUSHES, NOTED AND CARRIED OUT.
[2020-04-06 16:00] VITALS: BP 155/71
[2020-04-06] MEDS: FLUCONAZOLE (100 MG) 100 MG TABLET PO SCH (16:17)
[2020-04-06] MEDS: CEFEPIME 1 GM in IV D5W 50 ML IV SCH (17:30)
--- NOTE | 2020-04-06 18:50 | NUR ---
RN MS NOTES PT IN BED, RESTING, EASY TO AROUSE, ALERT TO SELF, NO SIGN OF PAIN OR DISTRESS, STARTED ON TUBE FEEDING VIA NG ORDERED PER DIETITIAN RECOMMENDATION, TOLERATES WELL, KEPT HOB ELEVATED, NEPHROSTOMY TUBES DRAINING CLEAR YELLOW DRAIN, OUTPUT RECORDED, PM CARE PROVIDED, ALL NEEDS ATTENDED.
--- NOTE | 2020-04-06 19:30 | NUR ---
MS/RN NOTES RECEIVED PATIENT IN BED RESTING. PATIENT IS ALERT AND ORIENTED X 3-4. PATIENTS BREATHING IS EVEN AND UNLABORED. NO SIGNS OF SOB OR RESPIRATORY DISTRESS NOTED. PATIENT STATES NO PAIN AT THIS TIME. IV ACCESS INTACT FLUSHING WELL. SAFETY MEASURES ARE IN PLACE BED IS LOCKED AND PLACED IN THE LOW POSITION, CALL LIGHT IS WITHIN REACH, SIDE RAILS UP X 2. WILL CONTINUE TO MONITOR THROUGH OUT SHIFT.
[2020-04-06 20:00] VITALS: BP 142/66
[2020-04-07] MEDS: BLOOD SUGAR DIAGNOSTIC 1 EACH STRIP IN SCH ×4 (06:10→23:14)
[2020-04-07] MEDS: INSULIN REGULAR, HUMAN 100 UNIT/ML 3 ML VIAL SQ PRN ×3 (06:10→18:00)
--- NOTE | 2020-04-07 06:30 | NUR ---
MS/RN CLOSING NOTES PATIENT IN BED SLEEPING EASY TO AROUSE. PATIENT IS ALERT AND ORIENTED X 1, OPENS EYES. PATIENTS BREATHING IS EVEN AND UNLABORED. NO SIGNS OF SOB OR RESPIRATORY DISTRESS NOTED. IV ACCESS INTACT FLUSHING WELL. NGT IN PLACE LEFT NARES NO RESIDUAL. BILATERAL NEPHROSTOMY DRAINING CLEAR URINE. SAFETY MEASURES ARE IN PLACE BED IS LOCKED AND PLACED IN THE LOW POSITION, CALL LIGHT IS WITHIN REACH, SIDE RAILS UP X 2. WILL ENDORSE TO DAY SHIFT NURSE.
[2020-04-07 06:55] LABS: BASOPHILS % (AUTO) 0.2 % (0.0-2.0); EOSINOPHILS % (AUTO) 3.4 % (0.0-6.0); HEMATOCRIT 28 % (39-51); HEMOGLOBIN 8.9 g/dL (13.5-17.5); LYMPHOCYTES # (AUTO) 0.9 /CMM (0.8-4.8); LYMPHOCYTES % (AUTO) 11.3 % (20.0-44.0); MEAN CORPUSCULAR HGB CONC 32 g/dl (31.0-36.0); MEAN CORPUSCULAR VOLUME 90 fL (80-96); MONOCYTES # (AUTO) 0.7 /CMM (0.1-1.30); MONOCYTES % (AUTO) 8.1 % (2.0-12.0); NEUTROPHILS # (AUTO) 6.4 /CMM (1.8-8.9); PLATELET COUNT (AUTO) 323 /CMM (150-450); RED BLOOD CELL COUNT(AUTO) 3.09 MIL/uL (4.5-6.0); WHITE BLOOD COUNT (AUTO) 8.3 K/uL (4.3-11.0)
--- NOTE | 2020-04-07 07:10 | NUR ---
RN OPENING NOTES PATIENT RECEIVED IN BED SLEEPING EASY TO AROUSE. PATIENT IS ALERT AND ORIENTED X 1, OPENS EYES. PATIENTS BREATHING IS EVEN AND UNLABORED. NO SIGNS OF SOB OR RESPIRATORY DISTRESS NOTED. IV ACCESS INTACT AND FLUSHING WELL. NGT IN PLACE LEFT NARES NO RESIDUAL. BILATERAL NEPHROSTOMY DRAINING FLUIDS. SAFETY MEASURES IMPLEMENTED. BED IS LOCKED AND PLACED IN THE LOW POSITION, CALL LIGHT IS WITHIN REACH, SIDE RAILS UP X 2. WILL CONTINUE TO MONITOR CLIENT AND PROVIDE CARE THROUGHOUT SHIFT.
[2020-04-07 07:27] LABS: CALCIUM, SERUM 10.2 mg/dL (8.5-10.1); CARBON DIOXIDE 24 mmol/L (21-32); CHLORIDE 113 mmol/L (98-107); CREATININE 4.4 mg/dL (0.6-1.3); GLUCOSE 237 mg/dL (74-106); POTASSIUM 4.3 mmol/L (3.5-5.1); SODIUM SERUM 147 mmol/L (136-145)
[2020-04-07 07:29] LABS: UREA NITROGEN, BLOOD 102 mg/dL (7-18)
[2020-04-07 08:00] VITALS: BP 130/52
[2020-04-07] MEDS: FLUCONAZOLE (100 MG) 100 MG TABLET PO SCH (09:00)
[2020-04-07] MEDS ORDERED: POLYETHYLENE GLYCOL 3350 17 GM POWD.PACK NG PRN (09:00)
[2020-04-07] MEDS: DOCUSATE SODIUM LIQ 100 MG/10 ML UDC NG SCH (10:38)
[2020-04-07] MEDS: CEFEPIME 1 GM in IV D5W 50 ML IV SCH (17:48)
--- NOTE | 2020-04-07 18:59 | NUR ---
RN CLOSING NOTES PATIENT IN BED SLEEPING EASY TO AROUSE. PATIENT IS ALERT AND ORIENTED X 1, OPENS EYES. PATIENTS BREATHING IS EVEN AND UNLABORED. NO SIGNS OF SOB OR RESPIRATORY DISTRESS NOTED. IV ACCESS INTACT AND FLUSHING WELL. NGT IN PLACE LEFT NARES NO RESIDUAL. PATIENT PULLED OUT NG TUBE BUT WAS REPLACED. X-RAY CONFIRMED PLACEMENT. NG TUBE ADVANCED 1 IN AFTER RESULTS WITH READING AT 65. RESTRAINTS PLACED TO PREVENT FURTHER REMOVING OF TUBES AND FOR PATIENT SAFETY. BILATERAL NEPHROSTOMY DRAINING FLUIDS. SAFETY MEASURES IMPLEMENTED. BED IS LOCKED AND PLACED IN THE LOW POSITION, CALL LIGHT IS WITHIN REACH, SIDE RAILS UP X 2. WILL ENDORSE CONTINUATION OF CARE TO UPCOMING SHIFT.
--- NOTE | 2020-04-07 19:35 | NUR ---
RN NOTES RECEIVED PT. NON-VERBAL, OBTUNDED, WITH NG-TUBE , JEVITY 1.2 RUNNING @ 20ML/HR, NG-TUBE PLACEMENT WAS CHECKED, WITH NEPHROSTOMY TUBE DRAINING CLEAR YELLOW URINE, NOT IN DISTRESS, NO PAIN NOTED, ON BILATERAL SOFT WRIST RESTRAINTS- CIRCULATION ARE GOOD, SIDEALSUPX2, WILL CONTINUE TO MONITOR
[2020-04-07 20:00] VITALS: BP 135/68
--- NOTE | 2020-04-07 22:00 | NUR ---
RN NOTES BLOOD SUGAR-220, NO VCOVERAGE WAS GIVEN PT. WILL BE NO FOR EGD IN THE MORNING
[2020-04-08 06:13] LABS: BASOPHILS % (AUTO) 0.1 % (0.0-2.0); EOSINOPHILS % (AUTO) 3.1 % (0.0-6.0); HEMATOCRIT 30 % (39-51); HEMOGLOBIN 9.2 g/dL (13.5-17.5); LYMPHOCYTES # (AUTO) 0.9 /CMM (0.8-4.8); LYMPHOCYTES % (AUTO) 12.6 % (20.0-44.0); MEAN CORPUSCULAR HGB CONC 31 g/dl (31.0-36.0); MEAN CORPUSCULAR VOLUME 91 fL (80-96); MONOCYTES # (AUTO) 0.8 /CMM (0.1-1.30); NEUTROPHILS # (AUTO) 5.4 /CMM (1.8-8.9); NEUTROPHILS % (AUTO) 73.2 % (43.0-81.0); PLATELET COUNT (AUTO) 241 /CMM (150-450); RED BLOOD CELL COUNT(AUTO) 3.25 MIL/uL (4.5-6.0); WHITE BLOOD COUNT (AUTO) 7.3 K/uL (4.3-11.0)
[2020-04-08 06:39] LABS: CALCIUM, SERUM 10.1 mg/dL (8.5-10.1); CARBON DIOXIDE 24 mmol/L (21-32); CHLORIDE 118 mmol/L (98-107); CREATININE 3.8 mg/dL (0.6-1.3); GLUCOSE 314 mg/dL (74-106); POTASSIUM 4.5 mmol/L (3.5-5.1); SODIUM SERUM 151 mmol/L (136-145)
[2020-04-08 06:40] LABS: UREA NITROGEN, BLOOD 93 mg/dL (7-18)
--- NOTE | 2020-04-08 07:00 | NUR ---
RN NOTES NON-VERBAL, MORNING CARE RENDERED, BLOOD -SUGAR 266, PT IS NPO FOR EGD, SIDERAILSUPX2, PT. NEEDS ATTENDED
[2020-04-08] MEDS: BLOOD SUGAR DIAGNOSTIC 1 EACH STRIP IN SCH ×4 (07:37→22:20)
--- NOTE | 2020-04-08 07:47 | NUR ---
MS RN OPENING NOTE PATIENT IS IN BED RESTING. PATIENT IS IN NO ACUTE DISTRESS. PATIENT IS ON ROOM AIR. NO SOB NOTED. PATIENT HAS BILATERAL RESTRAINS. PATIENT IS ON NG-TUBE. PATIENT IS ON NEPHROSTOMY TUBE. SAFETY PRECAUTIONS ARE IN PLACE. BED IN THE LOWEST POSITION, SIDE RAILS ARE UP. CALL LIGHT WITHIN REACH. WILL CONTINUE TO MONITOR CLOSELY.
[2020-04-08 08:39] VITALS: BP 146/74
[2020-04-08] MEDS: FLUCONAZOLE (100 MG) 100 MG TABLET PO SCH (08:56)
[2020-04-08] MEDS: DOCUSATE SODIUM LIQ 100 MG/10 ML UDC NG SCH (08:56)
[2020-04-08] MEDS ORDERED: MIDAZOLAM HCL 2 MG/2ML VIAL ONE (11:15)
[2020-04-08] MEDS: INSULIN REGULAR, HUMAN 100 UNIT/ML 3 ML VIAL SQ PRN ×2 (12:27→17:28)
[2020-04-08 16:27] VITALS: BP 141/90
[2020-04-08] MEDS ORDERED: GLUCERNA 1.2 1,000 ML BOTTLE GT SCH (17:30)
[2020-04-08] MEDS: CEFEPIME 1 GM in IV D5W 50 ML IV SCH (17:33)
[2020-04-08] MEDS ORDERED: GLUCERNA 1.2 1,000 ML BOTTLE NG PRN (19:00)
--- NOTE | 2020-04-08 19:30 | NUR ---
MS/RN OPENING NOTES RECEIVED PATIENT IN BED RESTING. PATIENT IS ALERT AND ORIENTED, OPENS EYES. PATIENT BREATHING IS EVEN AND UNLABORED. PATIENT HAS NO SIGNS OF SOB OR RESPIRATORY DISTRESS NOTED. PATIENT IN COMFORTABLE POSITION. PATIENT HAS IV ACCESS IN PLACE FLUSHING WELL, GNT IN RIGHT NARES IN PLACE. BILATERAL SOFT WRIST RESTRAINTS IN PLACE, GOOD HAND CIRCULATION. SAFETY MEASURES ARE IN PLACE, BED IS LOCKED AND PLACED IN THE LOW POSITION, SIDE RAILS UP X 3 CALL LIGHT IS WITHIN REACH. WILL CONTINUE TO MONITOR THROUGH OUT SHIFT.
--- NOTE | 2020-04-08 19:32 | NUR ---
MS RN CLOSING NOTE PATIENT IS IN BED RESTING. PATIENT IS IN NO ACUTE DISTRESS. PATIENT IS ON 2L TOLERATING WELL, NO SOB NOTED. PATIENT HAS NG-TUBE. SAFETY PRECAUTIONS ARE IN PLACE. BED IN THE LOWEST POSITION, SIDE RAILS ARE UP. CALL LIGHT WITHIN REACH. ENDORSE PATIENT TO THE MECHANICAL SERVICE TECHNICIAN NURSE FOR JOANIE.
[2020-04-08 20:00] VITALS: BP 123/61
[2020-04-09] MEDS: GLUCERNA 1.2 1,000 ML BOTTLE NG SCH (04:16)
[2020-04-09 05:25] VITALS: BP 123/61
[2020-04-09 06:14] LABS: BASOPHILS % (AUTO) 0.1 % (0.0-2.0); EOSINOPHILS % (AUTO) 4.9 % (0.0-6.0); HEMATOCRIT 30 % (39-51); HEMOGLOBIN 9.3 g/dL (13.5-17.5); LYMPHOCYTES % (AUTO) 14.9 % (20.0-44.0); MEAN CORPUSCULAR HGB CONC 31 g/dl (31.0-36.0); MEAN CORPUSCULAR VOLUME 92 fL (80-96); MONOCYTES % (AUTO) 10.8 % (2.0-12.0); NEUTROPHILS % (AUTO) 69.3 % (43.0-81.0); PLATELET COUNT (AUTO) 276 /CMM (150-450); RED BLOOD CELL COUNT(AUTO) 3.27 MIL/uL (4.5-6.0); WHITE BLOOD COUNT (AUTO) 6.9 K/uL (4.3-11.0)
[2020-04-09 06:15] LABS: MONOCYTES # (AUTO) 0.7 /CMM (0.1-1.30); NEUTROPHILS # (AUTO) 4.8 /CMM (1.8-8.9)
[2020-04-09] MEDS: BLOOD SUGAR DIAGNOSTIC 1 EACH STRIP IN SCH ×4 (06:35→22:05)
[2020-04-09] MEDS: INSULIN REGULAR, HUMAN 100 UNIT/ML 3 ML VIAL SQ PRN ×4 (06:36→22:06)
--- NOTE | 2020-04-09 06:55 | NUR ---
MS/RN CLOSING NOTES PATIENT IN BED SLEEPING EASY TO AROUSE. PATIENT IS ALERT AND ORIENTED TO OPENS EYES. PATIENT BREATHING IS EVEN AND UNLABORED. PATIENT HAS NO SIGNS OF SOB OR RESPIRATORY DISTRESS NOTED. PATIENT IN COMFORTABLE POSITION. PATIENT HAS IV ACCESS IN PLACE FLUSHING WELL LEFT AC #18G, GNT IN RIGHT NARES IN PLACE RUNNING GLUCERNA AT 30CC/HR WITH GOAL OF 45, 20 CC RESIDUAL. BILATERAL SOFT WRIST RESTRAINTS IN PLACE, GOOD HAND CIRCULATION. ALL NEEDS HAVE BEEN MET DURING SHIFT. SAFETY MEASURES ARE IN PLACE, BED IS LOCKED AND PLACED IN THE LOW POSITION, SIDE RAILS UP X 3 CALL LIGHT IS WITHIN REACH. WILL ENDORSE CARE TO DAY SHIFT NURSE.
--- NOTE | 2020-04-09 07:04 | NUR ---
RN OPENING NOTE RECEIVED PT RESTING COMFORTABLY IN BED AT THIS TIME. NON VERBAL. NO SOB NOTED, NO S/S OF ANY ACUTE DISTRESS NOTED, NO C/O PAIN AT THIS TIME. PT NOTED ON OXYGEN @2LPM VIA NC SATURATING AT 99%. RIGHT AND LEFT NEPHROSTOMY IN PLACE, CLEAN AND DRY, DRAINING TO GRAVITY CLEAN CLEAR YELLOW URINE OUTPUT. NGT NOTED IN RIGHT NARES WITH 15ML OF RESIDUAL. IV ACCESS NOTED IN LAC G#18, INTACT PATENT AND FLUSHING WELL. ASPIRATIONS AND SAFETY PRECAUTIONS IN PLACE AND MAINTAINED AT ALL TIMES. BED IN LOWEST LOCKED POSITION, SIDE RAILS UP, HOB ELEVATED, TABLE AND CALL LIGHT WITHIN REACH. WILL CONTINUE TO MONITOR.
[2020-04-09 07:18] LABS: CALCIUM, SERUM 10.6 mg/dL (8.5-10.1); CARBON DIOXIDE 24 mmol/L (21-32); CHLORIDE 121 mmol/L (98-107); CREATININE 3.7 mg/dL (0.6-1.3); GLUCOSE 195 mg/dL (74-106)
[2020-04-09 07:59] LABS: SODIUM SERUM 156 mmol/L (136-145); UREA NITROGEN, BLOOD 92 mg/dL (7-18)
[2020-04-09 08:00] VITALS: BP 125/71
[2020-04-09] MEDS: FLUCONAZOLE (100 MG) 100 MG TABLET PO SCH (08:34)
[2020-04-09] MEDS: DOCUSATE SODIUM LIQ 100 MG/10 ML UDC NG SCH (08:34)
--- NOTE | 2020-04-09 11:00 | NUR ---
CHLORIDE 121, DR MARTIN MADE AWARE. NO NEW ORDERS AT THIS TIME. WILL CONTINUE WITH PLAN OF CARE
[2020-04-09 16:00] VITALS: BP 132/70
[2020-04-09] MEDS: CEFEPIME 1 GM in IV D5W 50 ML IV SCH (18:10)
--- NOTE | 2020-04-09 19:45 | NUR ---
RN CLOSING NOTES PT RESTING COMFORTABLY IN BED AT THIS TIME. PT REMAINED STABLE THROUGHOUT SHIFT. PT REMAINED STABLE OXYGEN @2LPM VIA NC SATURATING @ 98% AT THIS TIME. ALL CARE, NEED, MEDICATIONS AND TREATMENT ADMINISTERED ANTICIPATED PER ORDER. PT REPOSITIONS Q2HR AND PRN. PT TOLERATED NGT WELL. NGT FLUSHED WITH 250ML OF WATER Q4HR PER ORDER. LINEN KEPT CLEAN. ASPIRATION, RESPIRATION AND SAFETY PRECAUTION IN PLACE AND MAINTAINED AT ALL TIMES. BED IN LOWEST LOCKED POSITION, HOB ELEVATED, SIDE RAILS UP X 2, CALL LIGHT AND TABLE WITHIN REACH. WILL ENDORSE TO ADMINISTRATION ASSISTANT NURSE FOR JOANIE
--- NOTE | 2020-04-09 19:50 | NUR ---
MS/RN OPENING NOTES PATIENT IN BED SLEEPING EASY TO AROUSE. PATIENT IS ALERT AND ORIENTED TO OPENS EYES. PATIENT BREATHING IS EVEN AND UNLABORED. PATIENT HAS NO SIGNS OF SOB OR RESPIRATORY DISTRESS NOTED. PATIENT IN COMFORTABLE POSITION. PATIENT HAS IV ACCESS IN PLACE FLUSHING WELL LEFT AC #18G, GNT IN RIGHT NARES IN PLACE RUNNING GLUCERNA AT 45CC/HR. BILATERAL SOFT WRIST RESTRAINTS IN PLACE, GOOD HAND CIRCULATION. SAFETY MEASURES ARE IN PLACE, BED IS LOCKED AND PLACED IN THE LOW POSITION, SIDE RAILS UP X 3 CALL LIGHT IS WITHIN REACH. WILL CONTINUE TO MONITOR.
[2020-04-09 20:00] VITALS: BP 99/58
--- NOTE | 2020-04-10 06:20 | NUR ---
MS/RN CLOSING NOTES PATIENT IN BED SLEEPING EASY TO AROUSE. PATIENT IS ALERT AND ORIENTED TO OPENS EYES. PATIENT BREATHING IS EVEN AND UNLABORED. PATIENT HAS NO SIGNS OF SOB OR RESPIRATORY DISTRESS NOTED. PATIENT IN COMFORTABLE POSITION. PATIENT HAS IV ACCESS IN PLACE FLUSHING WELL LEFT AC #18G, GNT IN RIGHT NARES IN PLACE RUNNING GLUCERNA AT 45CC/HR, 10CC RESIDUAL. BILATERAL SOFT WRIST RESTRAINTS IN PLACE, GOOD HAND CIRCULATION. ALL NEEDS MET. SAFETY MEASURES ARE IN PLACE, BED IS LOCKED AND PLACED IN THE LOW POSITION, SIDE RAILS UP X 3 CALL LIGHT IS WITHIN REACH. WILL ENDORSE CARE TO DAY SHIFT NURSE.
[2020-04-10] MEDS: BLOOD SUGAR DIAGNOSTIC 1 EACH STRIP IN SCH ×4 (06:49→21:54)
[2020-04-10] MEDS: INSULIN REGULAR, HUMAN 100 UNIT/ML 3 ML VIAL SQ PRN ×4 (06:51→21:59)
[2020-04-10 08:00] VITALS: BP 123/73
[2020-04-10 08:09] LABS: CALCIUM, SERUM 10.2 mg/dL (8.5-10.1); CARBON DIOXIDE 21 mmol/L (21-32); CHLORIDE 119 mmol/L (98-107); CREATININE 3.4 mg/dL (0.6-1.3); GLUCOSE 332 mg/dL (74-106); POTASSIUM 4.8 mmol/L (3.5-5.1); SODIUM SERUM 150 mmol/L (136-145)
[2020-04-10 08:12] LABS: UREA NITROGEN, BLOOD 93 mg/dL (7-18)
[2020-04-10] MEDS: DOCUSATE SODIUM LIQ 100 MG/10 ML UDC NG SCH (08:32)
[2020-04-10] MEDS: FLUCONAZOLE (100 MG) 100 MG TABLET PO SCH (08:32)
--- NOTE | 2020-04-10 08:45 | NUR ---
MS/RN S/B Dr Portillo Seen by DNP - morning labs ordered.
--- NOTE | 2020-04-10 09:00 | NUR ---
MS/short haul driver Morning medication provided to patient via NGT.
[2020-04-10] MEDS: GLUCERNA 1.2 1,000 ML BOTTLE NG SCH (12:02)
--- NOTE | 2020-04-10 13:00 | NUR ---
MS/RN PEG placement Order entered for patient to be consented for EGD with PEG placement. Will call family.
--- NOTE | 2020-04-10 13:19 | NUR ---
MS/RN Blood sugar Blood sugar at noon 346, insulin coverage administered as per sliding scale.
--- NOTE | 2020-04-10 13:49 | NUR ---
MS/RN Consent Patient's daughter Opal called, obtained consent for EGD with PEG placement tomorrow. Consent placed in front of chart, witness by two RN's.
[2020-04-10 15:59] VITALS: BP 129/59
[2020-04-10 16:00] VITALS: BP 129/59
[2020-04-10] MEDS: CEFEPIME 1 GM in IV D5W 50 ML IV SCH (17:07)
--- NOTE | 2020-04-10 17:15 | NUR ---
MS/RN Blood sugar Blood sugar at 5p - 244, four units insulin administered as per sliding scale.
--- NOTE | 2020-04-10 17:28 | NUR ---
MS/RN Nephrostomy output Nephrostomy bags drained: Left - 150ml Right - 175ml
--- NOTE | 2020-04-10 18:21 | NUR ---
MS/RN End note Patient remains in stable condition, all needs attended. Tube feeding continues at 45ml/hr, no residual noted. To be NPO from midnight for EGD with PEG insertion tomorrow. Consent forms placed in front of chart, telephone consent obtained from daughter. Has been turned and repositioned every 2-3 hours to prevent further skin breakdown, all wound care as ordered. Skin kept clean and dry. Will endorse to medical radiation dosimetrist.
--- NOTE | 2020-04-10 20:20 | NUR ---
RN NOTES PATIENT IN BED SLEEPING EASY TO AROUSE. PATIENT IS ALERT AND ORIENTED TO OPENS EYES. PATIENT BREATHING IS EVEN AND UNLABORED. PATIENT HAS NO SIGNS OF SOB OR RESPIRATORY DISTRESS NOTED. PATIENT IN COMFORTABLE POSITION. PATIENT HAS IV ACCESS IN PLACE FLUSHING WELL LEFT AC #18G, GNT IN RIGHT NARES IN PLACE RUNNING GLUCERNA AT 45CC/HR, 10CC RESIDUAL. BILATERAL SOFT WRIST RESTRAINTS IN PLACE, GOOD HAND CIRCULATION. ALL NEEDS MET. SAFETY MEASURES ARE IN PLACE, BED IS LOCKED AND PLACED IN THE LOWEST POSITION, SIDE RAILS UP X 3 CALL LIGHT IS WITHIN REACH. WILL CONTINUE TO MONITOR
[2020-04-10 21:39] VITALS: BP 133/62
--- NOTE | 2020-04-10 21:54 | NUR ---
RN NOTES BLOOD SUGAR CHECKED NO INSULIN COVERAGE NEEDED. WILL CONTINUE TO MONITOR.
[2020-04-11] VITALS (8 sets, daily range): BP systolic 103–143; BP diastolic 52–82
[2020-04-11 06:42] LABS: BASOPHILS % (AUTO) 0.1 % (0.0-2.0); EOSINOPHILS % (AUTO) 3.7 % (0.0-6.0); HEMATOCRIT 32 % (39-51); HEMOGLOBIN 9.9 g/dL (13.5-17.5); LYMPHOCYTES # (AUTO) 1.5 /CMM (0.8-4.8); LYMPHOCYTES % (AUTO) 13.1 % (20.0-44.0); MEAN CORPUSCULAR HGB CONC 30 g/dl (31.0-36.0); MEAN CORPUSCULAR VOLUME 91 fL (80-96); MONOCYTES # (AUTO) 0.7 /CMM (0.1-1.30); MONOCYTES % (AUTO) 6.4 % (2.0-12.0); NEUTROPHILS # (AUTO) 8.5 /CMM (1.8-8.9); NEUTROPHILS % (AUTO) 76.7 % (43.0-81.0); PLATELET COUNT (AUTO) 271 /CMM (150-450); RED BLOOD CELL COUNT(AUTO) 3.55 MIL/uL (4.5-6.0); WHITE BLOOD COUNT (AUTO) 11.1 K/uL (4.3-11.0)
[2020-04-11] MEDS: BLOOD SUGAR DIAGNOSTIC 1 EACH STRIP IN SCH ×4 (07:00→22:00)
[2020-04-11 07:15] LABS: CALCIUM, SERUM 11.2 mg/dL (8.5-10.1); CARBON DIOXIDE 26 mmol/L (21-32); CHLORIDE 122 mmol/L (98-107); CREATININE 3.4 mg/dL (0.6-1.3); GLUCOSE 272 mg/dL (74-106); POTASSIUM 4.8 mmol/L (3.5-5.1)
--- NOTE | 2020-04-11 07:21 | NUR ---
RN NOTES PATIENT IN BED SLEEPING EASY TO AROUSE. PATIENT IS ALERT AND ORIENTED TO OPENS EYES. PATIENT BREATHING IS EVEN AND UNLABORED. PATIENT HAS NO SIGNS OF SOB OR RESPIRATORY DISTRESS NOTED. PATIENT IN COMFORTABLE POSITION. PATIENT HAS IV ACCESS IN PLACE FLUSHING WELL LEFT AC #18G, GNT IN RIGHT NARES IN PLACE. npo since midnight for procedure. will enodrse care to day shift nurse.
[2020-04-11 07:43] LABS: SODIUM SERUM 156 mmol/L (136-145)
[2020-04-11 07:44] LABS: UREA NITROGEN, BLOOD 95 mg/dL (7-18)
[2020-04-11] MEDS: DOCUSATE SODIUM LIQ 100 MG/10 ML UDC NG SCH (08:43)
[2020-04-11] MEDS: FLUCONAZOLE (100 MG) 100 MG TABLET PO SCH (08:44)
[2020-04-11] MEDS ORDERED: IV D5W 1,000 ML IV ONE (11:30)
[2020-04-11] MEDS ORDERED: ANESTHESIA TRAY IN PYXIS 1 EA TRAY MC ONE (13:08)
[2020-04-11] MEDS: INSULIN REGULAR, HUMAN 100 UNIT/ML 3 ML VIAL SQ PRN (14:31)
--- NOTE | 2020-04-11 15:12 | NUR ---
MS RN NOTE PT BLOOD SUGAR 284. PT IS STILL NPO SO NO INSULIN GIVEN.
--- NOTE | 2020-04-11 16:05 | NUR ---
MS RN NOTE DR GALARZA'S ORDERS ENDORSED AND CARRIED OUT.
--- NOTE | 2020-04-11 17:20 | NUR ---
MS/RN NOTE BLOOD SUGAR 279. INSULIN COVERAGE NOT GIVEN DUE TO PATIENT NPO AND GT FEEDING ON HOLD.
[2020-04-11] MEDS: CEFEPIME 1 GM in IV D5W 50 ML IV SCH (17:38)
--- NOTE | 2020-04-11 17:57 | NUR ---
MS/RN CLOSING NOTES PATIENT IN BED, RESTING, EASY TO AROUSE. PATIENT IS A/O X1. PATIENT BREATHING IS EVEN AND UNLABORED. PATIENT HAS NO SIGNS OF SOB OR RESPIRATORY DISTRESS NOTED. PATIENT IN COMFORTABLE POSITION. PT HAD PEG PLACEMENT THIS AFTERNOON AND WILL RESUME GLUCERNA FEEDING IN AM. PATIENT HAS IV ACCESS IN PLACE FLUSHING WELL LEFT AC #18G. BILATERAL SOFT WRIST RESTRAINTS IN PLACE, GOOD HAND CIRCULATION. ALL NEEDS MET. SAFETY MEASURES ARE IN PLACE, BED IS LOCKED AND PLACED IN THE LOW POSITION, SIDE RAILS UP X 3 CALL LIGHT IS WITHIN REACH. WILL ENDORSE TO JEWEL HOLE ROUGH OPENER NURSE.
--- NOTE | 2020-04-11 19:54 | NUR ---
RN NOTES PATIENT IN BED, RESTING, EASY TO AROUSE. PATIENT IS A/O X1. PATIENT BREATHING IS EVEN AND UNLABORED. PATIENT HAS NO SIGNS OF SOB OR RESPIRATORY DISTRESS NOTED. PATIENT IN COMFORTABLE POSITION. PT HAD PEG PLACEMENT THIS AFTERNOON AND WILL RESUME GLUCERNA FEEDING IN AM. PATIENT HAS IV ACCESS IN PLACE FLUSHING WELL LEFT AC #18G. BILATERAL SOFT WRIST RESTRAINTS IN PLACE, GOOD HAND CIRCULATION. ALL NEEDS MET. SAFETY MEASURES ARE IN PLACE, BED IS LOCKED AND PLACED IN THE LOW POSITION, SIDE RAILS UP X 3 CALL LIGHT IS WITHIN REACH. WILL CONTINUE TO MONITOR.
--- NOTE | 2020-04-11 22:01 | NUR ---
RN NOTES BLOOD SUGAR CHECKED NO INSULIN COVERAGE PROVIDED DUE TO PT BEING NPO .WILL CONTINUE TO MONITOR.
[2020-04-12] MEDS: BLOOD SUGAR DIAGNOSTIC 1 EACH STRIP IN SCH ×4 (07:00→22:46)
[2020-04-12] MEDS: INSULIN REGULAR, HUMAN 100 UNIT/ML 3 ML VIAL SQ PRN ×5 (07:02→22:52)
--- NOTE | 2020-04-12 07:02 | NUR ---
RN NOTES PT BLOOD SUGAR WAS 409 CONTACTED MD WATSON PER MD GIVE 10 UNITS COVERAGE. WILL CONTINUE TO MONITOR.
--- NOTE | 2020-04-12 07:09 | NUR ---
RN NOTES PATIENT IN BED, RESTING, EASY TO AROUSE. PATIENT IS A/O X1. PATIENT BREATHING IS EVEN AND UNLABORED. PATIENT HAS NO SIGNS OF SOB OR RESPIRATORY DISTRESS NOTED. PATIENT IN COMFORTABLE POSITION. PT HAD PEG PLACEMENT THIS AFTERNOON AND WILL RESUME GLUCERNA FEEDING IN AM. PATIENT HAS IV ACCESS IN PLACE FLUSHING WELL LEFT AC #18G. BILATERAL SOFT WRIST RESTRAINTS IN PLACE, GOOD HAND CIRCULATION. ALL NEEDS MET. SAFETY MEASURES ARE IN PLACE, BED IS LOCKED AND PLACED IN THE LOW POSITION, SIDE RAILS UP X 3 CALL LIGHT IS WITHIN REACH. PT BLOOD SUGAR IS HIGH REPORTED TO MD INSULIN COVERAGE PROVIDED WILL ENDORSE TO DAY SHIFT TO RECHECK BLOOD SUGAR.
--- NOTE | 2020-04-12 07:28 | NUR ---
RN NOTES ENDORSED TO DAY SHIFT REGARDING BLOOD SUGAR. PT IN BED NO SIGNS OF PAIN OR DISCOMFORT VISIBLE. NO RESPIRATORY DISTRESS. ALL NURSING NEEDS MET AT THIS TIME. WILL ENDORSE CARE TO DAY SHIFT
[2020-04-12 08:06] VITALS: BP 112/76
[2020-04-12 08:14] LABS: BASOPHILS % (AUTO) 0.1 % (0.0-2.0); EOSINOPHILS % (AUTO) 0.2 % (0.0-6.0); HEMATOCRIT 33 % (39-51); HEMOGLOBIN 9.6 g/dL (13.5-17.5); LYMPHOCYTES % (AUTO) 4.5 % (20.0-44.0); MEAN CORPUSCULAR HGB CONC 29 g/dl (31.0-36.0); MEAN CORPUSCULAR VOLUME 96 fL (80-96); MONOCYTES # (AUTO) 0.8 /CMM (0.1-1.30); MONOCYTES % (AUTO) 3.5 % (2.0-12.0); NEUTROPHILS # (AUTO) 20.1 /CMM (1.8-8.9); NEUTROPHILS % (AUTO) 91.7 % (43.0-81.0); PLATELET COUNT (AUTO) 305 /CMM (150-450); RED BLOOD CELL COUNT(AUTO) 3.47 MIL/uL (4.5-6.0); WHITE BLOOD COUNT (AUTO) 21.9 K/uL (4.3-11.0)
[2020-04-12 08:18] LABS: CALCIUM, SERUM 10.7 mg/dL (8.5-10.1); CARBON DIOXIDE 21 mmol/L (21-32); CHLORIDE 122 mmol/L (98-107); CREATININE 4.5 mg/dL (0.6-1.3); POTASSIUM 5.6 mmol/L (3.5-5.1)
[2020-04-12] MEDS: DOCUSATE SODIUM LIQ 100 MG/10 ML UDC NG SCH (08:32)
[2020-04-12] MEDS: FLUCONAZOLE (100 MG) 100 MG TABLET PO SCH (08:32)
[2020-04-12 08:53] LABS: SODIUM SERUM 160 mmol/L (136-145)
[2020-04-12 09:09] LABS: GLUCOSE 554 mg/dL (74-106); UREA NITROGEN, BLOOD 119 mg/dL (7-18)
--- NOTE | 2020-04-12 10:16 | NUR ---
MS RN NOTE TUBE FEEDING STARTED @ 45ML/HR. DIETARY ORDER UPDATED
--- NOTE | 2020-04-12 10:41 | NUR ---
MS RN NOTE PT BLOOD SUGAR WAS 441 CONTACTED MD MARTIN - PER GIVE 8 UNITS COVERAGE X1 NOW. WILL CONTINUE TO MONITOR.
[2020-04-12] MEDS ORDERED: INSULIN REGULAR, HUMAN 100 UNIT/ML 10 ML VIAL SQ ONE (11:00)
[2020-04-12 11:27] LABS: LYMPHOCYTES % (MANUAL) 4 % (16-48); MONOCYTES % (MANUAL) 4 % (0-11.0); NEUTROPHILS % (MANUAL) 92 (42-76)
--- NOTE | 2020-04-12 11:39 | NUR ---
MS RN NOTE GAVE 8 UNITS X1 NOW PER MD ORDER. ON EMR, WRONG TIMING WAS SELECTED (HS SELECTED).
--- NOTE | 2020-04-12 12:57 | NUR ---
MS RN NOTE PT BLOOD SUGAR 390 AFTER 10 UNITS GIVEN. DOCTOR NOTIFIED. NO ACTION NEEDED.
--- NOTE | 2020-04-12 13:44 | NUR ---
MS RN NOTES CLINICAL ASSISTANT ALEKSEY MADE AWARE OF RESULT FROM ULTRASOUND OF THE KIDNEYS - ALEKSEY STATED HE WILL TALK TO DR. GARCIA
[2020-04-12 16:00] VITALS: BP 100/45
[2020-04-12] MEDS: CEFEPIME 1 GM in IV D5W 50 ML IV SCH (17:33)
--- NOTE | 2020-04-12 19:45 | NUR ---
MSRN HALFLY AWAKE, NO SOB. NO VERBAL.GT FEEDINGS OF GLUCERNA TOLERTED WELL NO RESIDUALS. HOB TO 45 DEGREES, HAS BILATERAL NEPHROSTOMY OUTPUT MONITORED. KEPT COMFORTABLE, TO CONTINUE.
[2020-04-12 20:45] VITALS: BP 114/48
--- NOTE | 2020-04-12 21:45 | NUR ---
MSRN BS 213 COVERAGE GIVEN. FEEDINGS VIA GT CONTINUED, RESIDUAL 15 CC. WATER FLUSH 250 CC. REPOSITIONED.
[2020-04-12 22:00] VITALS: BP 114/48
[2020-04-13] VITALS (10 sets, daily range): BP systolic 62–150; BP diastolic 26–76
--- NOTE | 2020-04-13 01:00 | NUR ---
MSRN FOUND PATIENT WITH VOMITUS, VOMITTED FORMULA, CONGESTED, DEEP SUCTIOING STARTED, PAGED RT, HAD LOOSE DARK BROWN BM. MAINTAINED HOB 45 DEGREES. FEEDINGS HELD, GT FLUSHED WITH 30 CC FOR PATENCY.
--- NOTE | 2020-04-13 01:15 | NUR ---
MSRN CALLED RAPID RESPONSE, PATIENT NONRESPONSIVE, SATURATION 81% BP II8/51. PLACED PATIENT ON NRM.
--- NOTE | 2020-04-13 01:20 | NUR ---
MSRN MANAGER PHARMACEUTICAL ARRIVED 0117. POSSIBLE INTUBATION. ABGS ON PROGRESS.
--- NOTE | 2020-04-13 01:30 | NUR ---
MSRN INTUBATED BY DR. ROA ETOMIDATE GIVEN BY OUTSIDE UPHOLSTERER PRIOR TO INTUBATION. PLACED CALL TO DR. RAWLS AT 0125.
--- NOTE | 2020-04-13 01:40 | NUR ---
MSRN MOVED TO ROOM 253 ICU. CN INFORMED SON OF TRANSFER.
--- NOTE | 2020-04-13 01:45 | NUR ---
MSRN REPORT GIVEN TO ACCEPTING RN.
--- NOTE | 2020-04-13 02:00 | NUR ---
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 Patient with bilateral Nephrostomy tube in place draining yellow urine.Turned and repositioned. Skin cold to touch.Warm blankets provided.Continue monitoring.
[2020-04-13 03:23] LABS: ABG BASE EXCESS -8.3 mmol/L; ABG OXYGEN SATURATION 99.9 % (92.0-98.5); ABG PCO2 33.3 mmHg (35.0-45.0); ABG PH 7.322 (7.350-7.450); ABG PO2 551.5 mmHg (75.0-100.0); AaDO2 128.2 mmHg; COHb 0.3 % (0.5-1.5); O2Hb 99.6 % (94.0-97.0); SITE, ABG Right Radial; VENT MODE, BG AC 20 450 100% +5
[2020-04-13] MEDS ORDERED: PROPOFOL 100 ML IV PRN (04:00)
[2020-04-13] MEDS ORDERED: PHENYLEPHRINE 50 MG in IV NS 0.9% 245 ML IV PRN (04:00)
[2020-04-13] MEDS ORDERED: PHENYLEPHRINE 10 MG/ML VIAL IV ONE (04:00)
[2020-04-13] MEDS ORDERED: PHENYLEPHRINE 10 MG/ML VIAL ONE (04:07)
[2020-04-13] MEDS ORDERED: NOREPINEPHRINE 8MG/250ML RTU 0 ML IV ONE (05:14)
[2020-04-13] MEDS ORDERED: ATROPINE SULFATE 1 MG/10 ML DISP.SYRIN ONE (05:19)
--- NOTE | 2020-04-13 05:33 | NUR ---
Patient hemodynamically unstable and critically ill.While trying to get IV access from patient noted in software testing specialist patient sarah'd down low 30.Atropine 0.5 mg iv administered per ACLS protocol. 0525 CODE BLUE activated.Please refer to Code Blue Record and Resuscitation Documentation. 8785 Pronounce by .
--- NOTE | 2020-04-13 05:45 | NUR ---
Post mortem care done.Called family Son Guy not answering left message.Daughter,Opal said she will come.
--- NOTE | 2020-04-13 06:34 | NUR ---
Reported to [facility] spoke to Jessica .Referral ID [id number].Per Jessica patient can go.
--- NOTE | 2020-04-13 07:00 | NUR ---
Patient daughter in to see father.Emotional support given.
--- NOTE | 2020-04-13 07:48 | NUR ---
Report given to MACARIO HAYNES for further care and management.Family still at bedside.
[2020-04-13] MEDS ORDERED: FEE EMEERGENCY 1 MIN EA MC ONE ×2 (11:22→13:31)
[2020-04-13] MEDS ORDERED: SUCCINYLCHOLINE CHLORIDE 20 MG/ML VIAL IV ONE (11:22)
[2020-04-13] MEDS ORDERED: ETOMIDATE 2 MG/ML VIAL IV ONE (11:22)
[2020-04-13] MEDS ORDERED: EPINEPHRINE (1:10,000) SYRINGE 1 MG/10 ML DISP.SYRIN IVP ONE (13:31)
== END 2020-04-13 14:04 | disposition expired | DRG 871 ==
LOC: ER 06:09 → TRANSITION 08:14 → TELE 04-04 13:44 → MED 04-05 08:11 → ICU 04-13 01:40
PROVIDERS: ADMIT Student in an Organized Health Care Education/Training Program; ATTEND Internal Medicine
PROC: 0T25X0Z Change Drainage Device in Kidney, External Approach (ICD-10-PCS; 2020-04-04)
PROC: 0DB68ZX Excision of Stomach, Via Natural or Artificial Opening Endoscopic, Diagnostic (ICD-10-PCS; principal; 2020-04-08)
PROC: 0DH63UZ Insertion of Feeding Device into Stomach, Percutaneous Approach (ICD-10-PCS; 2020-04-11)
PROC: 5A12012 Performance of Cardiac Output, Single, Manual (ICD-10-PCS; 2020-04-13)
PROC: 0BH18EZ Insertion of Endotracheal Airway into Trachea, Via Natural or Artificial Opening Endoscopic (ICD-10-PCS; 2020-04-13)
PROC: 5A1935Z Respiratory Ventilation, Less than 24 Consecutive Hours (ICD-10-PCS; 2020-04-13)
DX: A41.59 Other Gram-negative sepsis (principal); N17.0 Acute kidney failure with tubular necrosis; G93.41 Metabolic encephalopathy; K92.0 Hematemesis; E87.0 Hyperosmolality and hypernatremia; N13.6 Pyonephrosis; D68.69 Other thrombophilia; N10 Acute pyelonephritis; E87.5 Hyperkalemia; N18.9 Chronic kidney disease, unspecified; I25.10 Atherosclerotic heart disease of native coronary artery without angina pectoris; I12.9 Hypertensive chronic kidney disease with stage 1 through stage 4 chronic kidney disease, or unspecified chronic kidney disease; J44.9 Chronic obstructive pulmonary disease, unspecified; F03.90 Unspecified dementia, unspecified severity, without behavioral disturbance, psychotic disturbance, mood disturbance, and anxiety; E11.22 Type 2 diabetes mellitus with diabetic chronic kidney disease; E78.5 Hyperlipidemia, unspecified; F41.8 Other specified anxiety disorders; F32.9 Major depressive disorder, single episode, unspecified; Q54.9 Hypospadias, unspecified; E03.9 Hypothyroidism, unspecified; N40.1 Benign prostatic hyperplasia with lower urinary tract symptoms; Q64.79 Other congenital malformations of bladder and urethra; F41.9 Anxiety disorder, unspecified; Z79.82 Long term (current) use of aspirin; Z79.4 Long term (current) use of insulin; Z93.6 Other artificial openings of urinary tract status; E11.65 Type 2 diabetes mellitus with hyperglycemia; Z74.01 Bed confinement status; Z20.822 Contact with and (suspected) exposure to COVID-19; R13.10 Dysphagia, unspecified; K57.90 Diverticulosis of intestine, part unspecified, without perforation or abscess without bleeding; K40.20 Bilateral inguinal hernia, without obstruction or gangrene, not specified as recurrent; K56.41 Fecal impaction; L89.156 Pressure-induced deep tissue damage of sacral region; B96.4 Proteus (mirabilis) (morganii) as the cause of diseases classified elsewhere; D64.9 Anemia, unspecified; B96.1 Klebsiella pneumoniae [K. pneumoniae] as the cause of diseases classified elsewhere; K29.70 Gastritis, unspecified, without bleeding; K44.9 Diaphragmatic hernia without obstruction or gangrene; N32.89 Other specified disorders of bladder; K25.7 Chronic gastric ulcer without hemorrhage or perforation
CPT/HCPCS: 36415; 36600; 43246; 71045-TC; 75989-TC; 76770-TC; 80048-TC; 80053-TC; 80061-TC; 80076-TC; 81001; 82272-TC; 82550-TC; 82803-TC; 82947-TC; 82962-TC; 83605-TC; 83735-TC; 83880; 83970; 84100-TC; 84155; 84165; 84443-TC; 84484-TC; 85025-TC; 85730-TC; 86850-TC; 87040-TC; 87070-TC; 87081-TC; 87086-TC; 87186-TC; 88108-TC; 88305-TC; 88312-TC; 88313-TC; 88342; 89051-TC; 94002-TC; 99082-TC; C9113; G0378; J0171; J0330; J0461; J0690; J0692; J1815; J1940; J2250; J2310; J2354; J2370; J2704; J3010; J3490; J7030; J7040; J7050; J7060; U0003